=== PATIENT | female | born 1975 | race Caucasian/White ===

== ENCOUNTER 2021-05-19 16:15 | Emergency (ER) | payer BC ==
--- OUTSIDE RECORDS SUMMARY | 2021-05-19 16:19 | XMS REPORT | Continuity of Care Document ---
:1975 Author Organization [facility] t Address [facility] [place] [address] Care Team Providers Name Role Phone Shakeel HAYNES Primary Care Physician Unavailable Vitor Luo Attending Clinician Unavailable Katelin VALENTINE Attending Clinician Talita Hart MD Attending Clinician Shakeel Triana MD Attending Clinician Shakeel TRIANA Attending Clinician Unavailable Doctor Unassigned, Name Attending Clinician Unavailable Alfred VALENTINE Attending Clinician Saurav VALENTINE Attending Clinician Felix ISABEL Attending Clinician Unavailable Geovanny SOMERS Attending Clinician Unavailable Shakeel HAYNES Attending Clinician Unavailable Yumi BOLDEN Attending Clinician Unavailable Radiology Attending Clinician Unavailable Physician, Primary or Family Admitting Clinician Unavailabl e Payers Payer Name Policy Type Policy Effective Date Expiration Date Sour ce Number AETNA [facility] [id number] 2018 00:00:00 BCBSBCBS CHOICE [id number] 2020 [facility] PPO/FEDER[facility] 00:00:00 Hospital EMPL [id number] 2020[facility] [id number] 2020 00:00:00 IVANIA O [id number] 2018 00:00:00 Problems Condition Condition Condition Status Onset Resolution Last Treating Co mments Source Name Details Category Date Date Treatment Clinician Date Abnormal Abnormal Disease Active 2019-06 Metho di liver liver 0-25 st enzymes enzymes 00:00: Hospita 00 l 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i steatosis steatosis 0-25 st 00:00: Hospita 00 l 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 0-25 st 00:00: Hospita 00 l Asthma Problem Resolve 2020-12-08 Demarcus antoinette (disorder) d 21:21:03 l Asthma [place] (disorder) Resolved Problem 12/08/2020 [facility] Disease of Problem Resolve 2020-12-08 Memoria thyroid d 21:21:03 l gland Disease [place] (disorder) of thyroid gland (disorder) Resolved Problem 12/08/2020 Medical Group Rheumatoid Problem Resolve 2020-12-08 Memoria arthritis d 21:21:03 l (disorder) Raji n Rheumatoid arthritis (disorder) Resolved Problem 12/08/2020 Medical Group Hypothyroi Problem Active 2020-12-08 M emoria dism 21:21:03 l (disorder) Raji n Hypothyroi dism (disorder) Active Problem 12/08/2020 Medical Group Simple Problem Active 2020-12-08 Memor ia obesity 21:21:03 l (disorder) Simple Herm danielle obesity (disorder) Active Problem 12/08/2020 Medical Group Thyroid Problem Active 2020-12-08 Demarcus antoinette nodule 21:21:03 l (disorder) Thyroid Her fletcher nodule (disorder) Active Problem 12/08/2020 [facility] Group Allergies, Adverse Reactions, Alerts Allergy Allergy Status Severity Reaction(s) Onset Inactive Treating Comm ents Source Name Type Date Date Clinician pineappl FA Active SV ANAPHYLAXIS [facility] [place] [facility] pineappl FA Active SV [facility] [place] [facility] Pineappl Propensi Active Unknown Metho di e ty to Reaction 1-08 st adverse 00:00: Hospita reaction 00 l s to drug PINEAPPL DRUG Active Anaphylaxis 2018-06 Uni vers E INGREDI 2-13 ity of 00[facility]: [place] [facility] No Known DA Active U 2004-06 [facility] Drug 2- [place] Intolera 00:00: [facility] 00 [facility] No Known DA Active U 2004-06 [facility] Contrast 2-08 [place] Allergie 00:00: d s 00 [facility] No Known DA Active U 2004-06 [facility] Drug [facility]- [place] Allergie 00:00: d s 00 [facility] No Known DA Active U 2004-06 [facility] Other 2-08 [place] Allergie 00:00: d s 00 Medical Center PINEAPPL DA Active U [place] 2004-06 [facility] E - [place] [facility] Other Other Active Moderate Memoria Food Food l Allergy< Allergy< Raji n sup>1</s sup>1</s up> up> Family History Family Member Diagnosis Comments Start Date Stop Date Source Family member Colon cancer [facility] Family member Colon polyps [facility] Social History Social Habit Start Date Stop Date Quantity Comments Source Tobacco use and 2020-10-25 2020-10-25 Never used [facility] 00:00:00 00:00:00 Hospital Alcohol intake 2020-10-25 2020-10-25 Current drinker Metho dist 00:00:00 00:00:00 of [facility] Social History 2019-06-15 2019-06-15 Formerly [facility] 14:45:18 14:45:18 Alcohol Comment 2018-05-30 2018-05-30 Maybe three Methodis t 00:00:00 00:00:00 drinks a month Hospital Sex Assigned At [birth year] F [facility] 00:[facility]00 Hospital Smoking Status Start Date Stop Date Source Never smoker [facility] Medications Ordered Filled Start Stop Current Ordering Indication Dosage Frequency Signature Comments Components Source Medication Medication Date Date Medication? Clinician (SIG) Name Name cranberry 2020- Take by Meth deepika 400 mg 09-[address] capsule 14:50: 00:00 Hospita 01 :00 l loratadine Yes 10mg QD Take 10 mg M ethodi (CLARITIN) 09-[address] 10 mg 14:49: daily. Hospita tablet 59 l montelukast Yes 10mg QD Take 10 mg Methodi (SINGULAIR) 3-[address] 10 mg 14:49: nightly. Hospita tablet 59 l estradioL Yes 1mg QD Take 1 mg Met hodi (ESTRACE) 1 2-[address] MG tablet 00:00: daily. Hospit a 00 l omeprazole Yes [id number] TAKE ONE Methodi (PriLOSEC) - (1) st 20 MG 00:00: CAPSULE(S) Hospit a capsule 00 BY MOUTH l TWICE A DAY. elderberry 2020- No Q.5D Take by Met hodi fruit and 03-[address] flower 19:24: 00:00 (two) Hospita 460-115 mg 38 :00 times a l capsule day. levothyroxi Yes = 1 tab, Me moria ne 150 mcg 02-27 PO, Daily, l (0.15 mg) 14:53: PLEASE Raji n oral tablet [address] HIRSCH, # 90 ea, 0 Refill(s), Pharmacy: [facility], 160.02, cm, 06/15/19 8:38:00 [employer], Height, 83.636, kg, 06/15/19 8:38:00 [employer], Weight levothyroxi Yes 150 Memori a ne 150 mcg 5-29 microgram l (0.15 mg) 12:36: = 1 tab, Herm danielle oral tablet 00 PO, Daily, # 90 tab, 0 Refill(s), Pharmacy: [facility] omeprazole 2020- No [id number] 20mg Q.5D Take 1 Methodi (PriLOSEC) 06-[address] 20 MG 00:00: 00:00 (20 mg Hospita capsule 00 :00 total) by l mouth 2 (two) times a day. levothyroxi 2018-06 Yes 1 tab 6 Mem oria ne 175 mcg 2-26 days a l (0.175 mg) 15:22: week, PO, Curtis hilario oral tablet 00 Daily, # 78 tab, 1 Refill(s), Pharmacy: [facility] levothyroxi 2019 No 1 tab 6 Mem oria ne 175 mcg 2-26 days a l (0.175 mg) 14:40: week, PO, He rmann oral tablet 00 Daily, 0 Refill(s) Advil Sinus 2018-06 Yes PO, Q4H, 0 Memoria Congestion 2-26 Refill(s) l and Pain 14:40: Excedrin 2018-06 Yes PO, Q6H, 0 Mem oria Migraine 2-26 Refill(s) l 14:40: Claritin 2018-06 Yes 10 mg = 1 Demarcus antoinette 2-26 tab, PO, l 14:40: Daily, PRN Itching / rash / allergy symptoms, # 14 tab, 0 Refill(s) Cranberry 2018-06 Yes 0 Memoria 2-26 Refill(s) l 14:40: montelukast 2018-06 Yes 10 mg = 1 M emoria 10 mg oral 2-26 tab, PO, l tablet 14:40: Bedtime, # Gi nn 00 30 tab, 0 Refill(s) Omeprazole 2018-06 Yes PO, Daily, M emoria 2-26 0 l 14:40: Refill(s) Hydroxychlo 2018-06 Yes 200 mg = 1 Memoria roquine 2-26 tab, PO, l Sulfate 200 14:40: Daily, 0 He rmann MG Oral 00 Refill(s) Tablet multivitami 2018-06 Yes Daily, 0 Me moria n 2-26 Refill(s) l 14:40: Estrogens, 2018-06 Yes 0.3 mg = 1 M emoria Conjugated 2-26 tab, PO, l (ASSISTED) 0.3 14:40: Daily, # Herm danielle MG Oral 00 30 tab, 0 Tablet Refill(s) [Premarin] hydroxychlo 2018-06 Yes Method i roquine 0-24 st (PLAQUENIL) 00:00: Hospit a 200 mg 00 l tablet levothyroxi 2017-06- No Metho di ne 1-06 09-11 st (SYNTHROID, 00:00: 00:00 Hospi ta LEVOXYL) 00 :00 l 175 mcg tablet PREMARIN 2017-06- No Methodi 0.3 mg 0-15 03-26 st tablet 00:00: 00:00 Hospita 00 :00 l Vital Signs Vital Name Observation Time Observation Value Comments Source Systolic blood 2020-09-13 14:46:00 128 mm[Hg] [facility] pressure Diastolic blood 2020-09-13 14:46:00 85 mm[Hg] [facility] pressure Heart rate 2020-09-13 14:46:00 81 /min [facility] Body temperature 2020-09-13 14:46:00 36.56 Ofelia [facility] Body height 2020-09-13 14:46:00 162.6 cm [facility] Body weight 2020-09-13 14:46:00 76.204 kg [facility] BMI 2020-09-13 14:46:00 28.84 kg/m2 [facility] Oxygen saturation in 2020-09-13 14:46:00 100 /min [facility] Arterial blood by Pulse oximetry Systolic (mm Hg) 2019-06-15 14:38:00 Demarcus [facility] Roverto Diastolic (mm Hg) 2019-06-15 14:38:00 [facility] Heart Rate 2019-06-15 14:38:00 [facility] Temperature Oral (F) 2019-06-15 14:38:00 98.3 F [facility] Height 2019-06-15 14:38:00 160.02 cm [facility] Weight 2019-06-15 14:38:00 [facility] BMI Calculated 2019-06-15 14:38:00 [facility] [place] Procedures Procedure Date / Time Performing Clinician Source Performed US ABDOMINAL WITH LIVER 2020-12-13 16:57:40 Katelin, [facility] ELASTOGRAPHY CBC WITH PLATELET AND 2020-09-13 16:00:00 Terry Thomason [facility] DIFFERENTIAL COMPREHENSIVE METABOLIC 2020-09-13 16:00:00 Katelin, [facility] PANEL MRI ABDOMEN W WO CONTRAST 2020-03-13 12:35:00 [facility] US ABDOMINAL WITH LIVER 2020-03-06 20:00:00 Katelin [facility] ELASTOGRAPHY FERRITIN LEVEL 2020-03-01 20:05:00 Katelin [facility] spital HEPATIC FUNCTION PANEL 2020-03-01 20:05:00 [facility] PROTHROMBIN TIME WITH INR 2020-03-01 20:05:00 [facility] CERULOPLASMIN LEVEL 2020-03-01 20:05:00 [facility] LIVER-KIDNEY MICROSOME 2020-03-01 20:05:00 [facility] AB, IGG ANTI-SMOOTH MUSCLE 2020-03-01 20:05:00 [facility] ANTIBODY ALPHA-1 ANTITRYPSIN LEVEL 2020-03-01 20:05:00 [facility] IMMUNOGLOBULIN G, A, M 2020-03-01 20:05:00 [facility] Bone density [facility] scan<sup>3</sup> Hysterectomy<sup>6</sup> [facility] l Roverto Arthroscopy of [facility] knee<sup>2</sup> PAP smear [facility] preparation<sup>9</sup> Hand excision<sup>5</sup> Memori al [place] Mammogram<sup>8</sup> [facility] ermann Endoscopy [facility] Lumpectomy of left [facility] breast<sup>7</sup> Cholecystectomy<sup>4</rao Memori [facility] p> Colonoscopy [facility] T and A (tonsillectomy [facility] and adenoidectomy) postoperative education<sup>10</sup> Plan of Care Planned Activity Planned Date Details Comments Source Future Scheduled Test COVID-19 VACCINE (1) [facility] [code = COVID-19 VACCINE (1)] Future Scheduled Test Hepatitis C screening [facility] (procedure) [code = 974150481] Future Scheduled Test Screening for [facility] malignant neoplasm of cervix (procedure) [code = 968853381] Future Scheduled Test INFLUENZA VACCINE [facility] [code = INFLUENZA VACCINE] Encounters Start End Encounter Admission Attending Care Care Encounter Source Date/Time Date/Time Type Type Clinicians Facility Department ID 2021-04-19 Emergency [facility] [id number] Univers 05:48:51 ity [facility] 2021-01-28 Inpatient PIERRE Wooten ROBERTA [id number] [facility] 16:00:00 Brittny [id number] [facility] 2021-01-30 2021-01-30 Outpatient CHAYA Luo, HCAPM [facility] 08:51:00 08:51:00 Brittny [id number] [facility] 2021-01-30 2021-01-30 Outpatient CHAYA Luo, HCAPM HCAPM [facility] 08:51:00 08:51:00 Brittny 26 [facility] 2020-12-13 2020-12-13 [facility] 1.2.840.1 [id number] Methodi 11:03:03 23:59:00 Encounter Terry 23214.1.[address] 3.430.2.7 Hospit a .3.059255 l .8 2020-12-13 2020-12-13 Travel 1.2.840.1 1.2.877.646 [id number] Methodi 00:00:00 00:00:[address] 3.430.2.7 0.2.7.3.698 Ho spita .3.359997 084.8 l .8 2020-12-05 2020-12-06 Between nullFlavo [facility] [id number] Memoria 13:54:11 13:54:11 Visit r Primary 16 l [facility] 2020-11-28 2020-11-28 Travel 1.2.840.1 1.2.847.252 [id number] Methodi 00:00:00 00:00:[address] 3.430.2.7 0.2.7.3.698 Ho spita .3.863111 084.8 l .8 2020-11-25 2020-11-27 Phone nullFlavo [facility] [id number] Memoria 19:19:32 04:59:59 Message r Primary 11 l [facility] 2020-11-20 2020-11-22 Phone nullFlavo [facility] [id number] Memoria 16:21:27 04:59:59 Message r Primary 10 l Care [facility] 2020-11-19 2020-11-21 Phone nullFlavo [facility] [id number] Memoria 14:20:38 04:59:59 Message r Primary 09 l [facility] 2020-09-13 2020-09-13 Office Katelin, 1.2.840.1 [id number] Methodi 09:43:30 10:31:45 Visit Terry 74312.1.[address] 3.430.2.7 Hospit a .3.408416 l .8 2020-09-13 2020-09-13 Travel 1.2.840.1 1.2.163.863 [id number] Methodi 00:00:00 00:00:[address] 3.430.2.7 0.2.7.3.698 Ho spita .3.430635 084.8 l .8 2020-07-17 2020-07-17 Refill Hart, 1.2.840.1 [id number] Methodi 00:00:00 00:00:00 Chelsea Sanon [address]85.1.[address] 3.430.2.7 Hospit a .3.233729 l .8 2020-07-12 2020-07-12 Refill Hart, 1.2.840.1 [id number] Methodi 00:00:00 00:00:00 Chelsea Sanon [address]804.1.[address] 3.430.2.7 Hospit a .3.079730 l .8 2020-06-18 2020-06-18 Outpatient MHIE SUZANIE [id number] Memoria 10:00:00 10:00:00 01 saskia Layne 2020-06-04 2020-06-04 [facility] 1.2.840.114 [id number] 18:30:00 23:59:00 [facility] Shakeel Guevara 350.1.13.10 [place] 4.2.7.2.686 [place] [id number] 2020-06-04 2020-06-04 [facility] [id number] Univers 18:30:00 18:30:00 [id number] [facility] 2020-06-04 2020-06-04 Outpatient EBONY SHERMAN [facility] [id number] Univers 18:30:00 18:30:00 ity [facility] 2020-06-04 2020-06-04 Orders Doctor JOSEFINA 1.2.840.114 [id number] 00:00:00 00:00:00 Only Unassigned, JUAN 350.1.13.10 [employer] [facility] 4.2.7.2.686 [id number] 2020-05-06 2020-05-06 Emergency [facility] 1.2.719.359 [id number] 13:15:00 16:55:00 Royer Guevara 350.1.13.10 [place] 4.2.7.2.686 [place] [id number] 084 2020-03-15 2020-03-15 Office Katelin, 1.2.840.1 [id number] Methodi 10:01:48 11:16:43 Visit Terry 48242.1.[address] 3.430.2.7 Hospit a .3.984102 l .8 2020-03-15 2020-03-15 Travel 1.2.840.1 1.2.562.296 [id number] Methodi 00:00:00 00:00:[address] 3.430.2.7 0.2.7.3.698 [facility] .3.886100 084.8 l .8 2020-03-13 2020-03-13 [facility], 1.2.840.1 [id number] Methodi 06:32:06 23:59:00 Encounter Refugio 67797.1.[address] 3.430.2.7 Hospit a .3.870820 l .8 2020-03-12 2020-03-12 Travel 1.2.840.1 1.2.009.159 [id number] Methodi 00:00:00 00:00:[address] 3.430.2.7 0.2.7.3.698 Ho spita .3.915866 084.8 l .8 2020-03-08 2020-03-08 Travel 1.2.840.1 1.2.543.563 1302 [id number] Methodi 00:00:00 00:00:[address] 3.430.2.7 0.2.7.3.698 Ho spita .3.811788 084.8 l .8 2020-03-08 2020-03-08 [facility] Serban, 1.2.840.1 [id number] Methodi 00:00:00 00:00:00 Only Aixa 41398.1.[address] 3.430.2.7 Hospit a .3.249514 l .8 2020-03-06 2020-03-06 [facility], 1.2.840.1 [id number] 00030 Methodi 14:13:03 23:59:00 Encounter Terry [address]124.1.[address] 3.430.2.7 Hospit a .3.509462 l .8 2020-03-06 2020-03-06 Travel 1.2.840.1 1.2.959.104 [id number] [id number] Methodi 00:00:00 00:00:[address] 3.430.2.7 0.2.7.3.698 Ho spita .3.341292 084.8 l .8 2020-03-04 2020-03-04 Travel 1.2.840.1 1.2.513.018 6732 [id number] Methodi 00:00:00 00:00:[address] 3.430.2.7 0.2.7.3.698 Ho spita .3.442851 084.8 l .8 2020-03-01 2020-03-01 [facility], 1.2.840.1 [id number] Methodi 13:53:06 14:57:23 Visit Terry 11400.1.[address] 3.430.2.7 Hospit a .3.991447 l .8 2020-02-28 2020-03-01 Phone nullFlavo [facility] [id number] Memoria 14:46:02 04:59:59 Message r Primary 05 l Care [facility] Jones 2020-03-01 2020-03-01 Travel 1.2.840.1 1.2.474.839 [id number] Methodi 00:00:00 00:00:[address] 3.430.2.7 0.2.7.3.698 Ho spita .3.093016 084.8 l .8 2020-02-21 2020-02-21 Abstract Geovanny, 1.2.840.1 [id number] Methodi 00:00:00 00:00:[address] 3.430.2.7 Hospit a .3.759334 l .8 2020-02-21 2020-02-21 Travel 1.2.840.1 1.2.828.865 6048 [id number] Methodi 00:00:00 00:00:[address] 3.430.2.7 0.2.7.3.698 Ho spita .3.076252 084.8 l .8 2019-12-19 2019-12-19 Outpatient EL HAYNES, MDA MDA [id number] 14:37:17 15:04:22 CALEB harry 2019-12-15 2019-12-15 Outpatient EL FUREMIGDIO, MDA MDA [id number] 07:27:02 07:27:02 SHERRIE harry 2019-12-15 2019-12-15 Outpatient EL FURROW, MDA MDA [id number] 07:17:44 07:21:59 SHERRIE harry 2019-12-13 2019-12-15 Phone nullFlavo [facility] [id number] Memoria 14:04:58 04:59:59 Message r Primary 03 l Care [facility] Robert 2019-12-08 2019-12-10 Phone nullFlavo [facility] [id number] Memoria 13:12:35 04:59:59 Message r Primary 02 l Care Cecilia Angelo [facility] 2019-12-08 2019-12-10 Phone nullFlavo [facility] [id number] Memoria 13:10:28 04:59:59 Message r Primary 01 l Care Cecilia Angelo [facility] 2019-11-17 2019-11-18 Between nullFlavo MG [id number] Memoria 12:33:41 12:33:41 Visit r Primary 01 l Care Cecilia Angelo [facility] 2019-11-09 2019-11-11 Phone nullFlavo MG [id number] Memoria 21:12:12 04:59:59 Message r Primary 00 l Care Cecilia Angelo [facility] 2019-06-15 2019-06-16 Outpatient nullFlavo [facility] [id number] Memoria 14:45:00 05:59:59 r Primary 00 l Care Cecilia Angelo [facility] 2019-02-16 2019-02-16 Hospital Radiology [facility] 1.2.840.114 [id number] 16:45:00 23:59:00 Encounter Bally 350.1.13.10 [place] 4.2.7.2.686 [place] [id number] Results Test Description Test Time Test Comments Results Result Comments Source SURG 2021-02-11 13:53:00 Test Item Value Reference Range Interpretation Commrivas hercules SURG RUN DATE: (test 02/11/21 H SHANITA Robles [facility] - [facility] PAGE 1 RUN TIME: 2733 code = Kosta n Inquiry RUN USER: INTERFACE SURG) PATIENT: LEONARD DÍAZ LOC: ELVA U #: [id number] AGE/SX: [age]/F ROOM: RE01/30/21[facility] DR: Brittny Luo : 79 BED: DIS: STATUS: DEP [facility] TLOC: SPEC #: [id number] RECD: STATUS: EPHRAIM REQ #: [id number] RODRIGUEZ: 01/31/21-[address]: Brittny Luo MD ENTERED: 01/31/21 SP TYPE: SURG OTHR DR : No Primary or Family PhysicianORDERED: SURG PATH LVL 5 COPIES TO: No Primary or Family Physician Brittny Luo MD [address] [place] [address] HISTOLOGY: TISSUE ID BLK PCS DANA LEV PROCEDURE DISPOSITION ____ ___ ___ ___ SOFT TISSUES, N A 1 PROCEDURES: SURG PAT H LVL 5 (01/31/21) TISSUES: A. SOFT TISSUES, NOS - CUL DE SAC WALL ENDOMETRIOSIS CPT CODES CPT CODE(S): 54383 , , , , , , FINAL DIAGNOSIS "Cul-de-sac wall endometriosis," excision: SEGMENTS OF SOFT TISSUE , NEGATIVE FOR ENDOMETRIOSIS GROSS DESCRIPTION Cul-de-sac wall endometriosis. Received in formalin is an irregular fragment of middleton-brown soft to rubbery tissue, 1.1 x 0.6 x 0.2 cm. The spe cimen is serially sectioned and the cut surface is middleton-brown and solid. The entire specimen is sub mitted as A. /ba/rupali Grossing performed at [facility] Pathology, [address] [place] [address], [address], [place] [address]. Guide Foreign Tour: Jose Carlos Siddiqi M.D. CONTINUED ON NEXT PA RUN DATE: 02/11/21 H [facility] - LAB PAGE 2 RUN TIME: 1353 Specimen Inquiry RUN USER: INTERFACE SPEC #: [facility]:[id number] PATIENT: LEONARD DÍAZ #[id number] (Continued) - MICROSCOPIC DESCRIPTI ON Cul-de-sac wall endometriosis. Sections demonstrate segments of unremarkable soft tissue c onsisting predominantly of fibroadipose tissue. Deeper sections demonstrate similar findings. Signed SIGNATURE ON Ahmet Nguyen 02/11/21 1353 END OF REPORT COMPREHENSIVE METABOLIC [id number] 12:17:00 Test Item Value Reference Range Interpretation Comments SODIUM (test code = NA) 140 mmol/L 134-147 N POTASSIUM (test code = 4.4 mmol/L 3.4-5.0 N K) CHLORIDE (test code = 108 mmol/L 100-108 N CL) CARBON DIOXIDE (test 31 mmol/L 21-32 N code = CO2) ANION GAP (test code = 1.0 GAP calc 4.0-15.0 L GAP) GLUCOSE (test code = 77 MG/DL 70-110 N GLU) BLOOD UREA NITROGEN 7 MG/DL 7-18 N (test code = BUN) GLOMERULAR FILTRATION >=60 max estimate >60 RATE (test code = GFR) estGFR CREATININE (test code = 0.6 MG/DL 0.6-1.0 N CREAT) TOTAL PROTEIN (test code 7.2 G/DL 6.4-8.2 N = PROT) ALBUMIN (test code = 3.8 G/DL 3.4-5.0 N ALB) GLOBULIN (test code = 3.4 GM/dL GLOB) ALBUMIN/GLOBULIN RATIO 1.1 RATIO 1.2-2.2 L (test code = A/G) CALCIUM (test code = CA) 9.2 MG/DL 8.5-10.1 N BILIRUBIN TOTAL (test 0.40 MG/DL 0.2-1.2 N code = BILT) SGOT/AST (test code = 14 Unit/L 15-37 L AST) SGPT/ALT (test code = 20 Unit/L 12-78 N ALT) ALKALINE PHOSPHATASE 53 Unit/L 45-117 N TOTAL (test code = ALKP) COVID 19 INHOUSE [id number] 17:41:00 Test Item Value Reference Range Interpretation Comments COVID 19 INHOUSE AG NEGATIVE Negative Per manu facturer, (test code = negative result s should [id number]) be treated aspr esumptive and, if inconsi stent with clinical signs andsymptoms or necessary for patient man agement, should betested with an alternative mol ecular assay. Negative resultsdo not preclude SA RS-CoV-2 infection and s hould not be usedas the s ole basis for patient man agement decisions. Neg ative results should be considered in t he context of apatient's r ecent exposures, hist ory, presence of cli nicalsigns and symptoms co nsistent with COVID-19. CBC W/AUTO [id number] 17:07:00 Test Item Value Reference Range Interpretation Comments WHITE BLOOD CELL (test code = 6.2 K/mm3 3.5-11.0 N WBC) RED BLOOD CELL (test code = 4.64 M/mm3 4.70-6.10 L RBC) HEMOGLOBIN (test code = HGB) 13.1 G/DL 10.4-14.9 N HEMATOCRIT (test code = HCT) 39.2 % 31.5-44.1 N MEAN CELL VOLUME (test code = 84.5 Fl 84.5-98.6 N MCV) MEAN CELL HGB (test code = MCH) 28.2 pg 27.0-34.2 N MEAN CELL HGB CONCETRATION 33.4 G/DL 31.5-34.0 N (test code = MCHC) RED CELL DISTRIBUTION WIDTH 12.5 SD 11.5-14.5 N (test code = RDW) PLATELET COUNT (test code = 283 K/mm3 150-450 N PLT) MEAN PLATELET VOLUME (test code 8.90 fL 7.0-10.5 N = MPV) NEUTROPHIL % (test code = NT%) 50.9 % 40-76 N IMMATURE GRANULOCYTE % (test 0.2 % 0.0-5.0 N code = IG%) LYMPHOCYTE % (test code = LY%) 40.7 % 20.5-51.1 N MONOCYTE % (test code = MO%) 7.1 % 1.7-9.3 N EOSINOPHIL % (test code = EO%) 0.6 % 0.0-6.0 N BASOPHIL % (test code = BA%) 0.5 % 0.0-2.0 N NUCLEATED RBC % (test code = 0.0 /100WBC% 0.0-1.0 N NRBC%) NEUTROPHIL # (test code = NT#) 3.2 K/mm3 1.8-7.6 N IMMATURE GRANULOCYTE # (test 0.01 x10 3/uL 0.00-0.03 N code = IG#) LYMPHOCYTE # (test code = LY#) 2.5 K/mm3 0.6-3.2 N MONOCYTE # (test code = MO#) 0.4 K/mm3 0.3-1.1 N EOSINOPHIL # (test code = EO#) 0.0 K/mm3 0.0-0.4 N BASOPHIL # (test code = BA#) 0.0 K/mm3 0.0-0.1 N NUCLEATED RBC # (test code = 0.0 K/mm3 0.0-0.1 N NRBC#) MANUAL DIFF REQUIRED (test code NO DIFF/SCN CRITERIA = MDIFF) URINALYSIS [id number] 17:05:00 Test Item Value Reference Range Interpretation Comments UA GLUCOSE DIPSTICK (test NEGATIVE mg/dL NEG code = DGLUU) UA BILIRUBIN DIPSTICK (test NEGATIVE mg/dL NEG code = BILU) UA KETONE DIPSTICK (test NEGATIVE mg/dL NEG code = KETU) UA SPECIFIC GRAVITY (test 1.025 SG 1.005-1.030 code = SGU) UA BLOOD DIPSTICK (test NEGATIVE mg/DL NEG code = JEISON) UA PH DIPSTICK (test code = 5.5 pH UNITS 5.0-7.0 BETTINA) UA PROTEIN DIPSTICK (test NEGATIVE mg/dL NEG code = PROU) UA UROBILINIOGEN DIPSTICK 0.2 mg/dL <2.0 (test code = URO) UA NITRITE DIPSTICK (test NEGATIVE SCREEN NEG code = PEEWEE) UA LEUKOCYTE ESTERASE NEGATIVE Leuk/mcL NEGATIVE DIPSTICK (test code = LEUU) Urine Specimen Type: Clean CatchUS Abdominal with Liver [id number] 20:52:00EXAM: US ABDOMINAL WITH LIVER ELASTOGRAPHY CLINICAL DATA: K74.00 Hepatic fibrosis unspecified, K76.0 Fatty (change of) liver not elsewhere classified, hepatic steatosis COMPARISON: MRI abdomen datedS2019 IMPRESSION: LIVER: The liver demonstrates normal echogenicity without intrahepatic biliary ductal dilatation. Ill-defined echogenic regions seen in the left hepatic lobe, likely reflects focal fatty infiltration. 2D-Shear wave elastography was performed; 10 measurements were obtained from the right hepatic lobe per protocol. The median shear wave velocity was 0.95 m/s, most compatible with METAVIR stage F0, no fibrosis (see reference ranges for GE Logiq E9 with C1-6 Mhz probe below). Please note that velocities/stiffness may ALSO be elevated due to passive hepatic congestion, biliary obstruction/cholestasis, and inflammation (such as acute viral hepatitis flare). Results should be interpreted with caution in these settings. GE Logiq E9 reference ranges:METAVIR SW velocity StiffnessNormal <1.35 m/s <5.48 kPaF1 1.35-1.65 m/s >5.48 kPaF2 1.66-1.76 m/s >8.29 kPaF3 1.77-1.98 m/s >9.40 kPaF4 >1.99 m/s >11.9 kPa Reliability:The IQR was 0.15 m/s, resulting in an IQR/median ratio of 15%. (A value of < 30% indicates a reliable dataset). GALLBLADDER: Status post cholecystectomy. CBD: The common bile duct measures 0.5-0.6 cm, within normal limits. MPV: Doppler evaluation of the portal vein demonstrates normal hepatopetal flow. The main portal vein measures 1.0 cm in diameter, within normal limits. PANCREAS: The visualized portions of the pancreas are within normal limits. SPLEEN: The spleen is homogeneous and not enlarged measuring 9.3 x 4.2 x 5.2 cm in length. KIDNEYS: The right kidney measures 10.2 x 5.7 x 5.1 cm in length and the left kidney measures 9.6 x 5.0 x 5.6 cm in length. There is minimal pelviectasis of the left kidney. AORTA: The visualized upper abdominal aorta demonstrates no evidence of ectasia or aneurysm. IVC: The visualized portions ofthe inferior vena cava are unremarkable. ASCITES: No ascites or abnormal fluid collections are seen.PLEURAL EFFUSION: There are no pleural effusions. SUMMARY: 1.No evidence of fibrosis. 2.Ill-definedechogenic area in the left hepatic lobe likely reflects focal fatty infiltration. [facility]-[id number] Dictated and approved by residential advisor/fellow: Mauricio Arita M.D. I, Cornelius Langford MD, personally reviewed the images and resident's/fellow's findings and agree with the final report.[facility], Radiology Results - 12/13/2020 3:55 PM CDTFormatting of this note might be different fromthe original.EXAM: US ABDOMINAL WITH LIVER ELASTOGRAPHYCLINICAL DATA: K74.00 Hepatic fibrosis unspecified, K76.0 Fatty (change of) liver not elsewhere classified, hepatic steatosisCOMPARISON: MRI abdomen dated March 13, 2020IMPRESSION:LIVER: The liver demonstrates normal echogenicity without in trahepatic biliary ductal dilatation. Ill-defined echogenic regions seen in the left hepatic lobe, likely reflects focal fatty infiltration.2D-Shear wave elastography was performed; 10 measurements were obtained from the right hepatic lobe per protocol. The median shear wave velocity was 0.95 m/s, most compatible with METAVIR stage F0, no fibrosis (see reference ranges for GE Logiq E9 with C1-6 Mhz probe below). Please note that velocities/stiffness may ALSO be elevated due to passive hepatic congestion, biliary obstruction/cholestasis, and inflammation (such as acute viral hepatitis flare). Results should be interpreted with caution in these settings.GE Logiq E9 reference ranges:METAVIR SW velocity StiffnessNormal <1.35 m/s <5.48 kPaF1 1.35-1.65 m/s >5.48 kPaF2 1.66-1.76 m/s >8.29 kPaF3 1.77-1.98 m/s >9.40 kPaF4 >1.99 m/s >11.9 kPaReliability:The IQR was 0.15 m/s, resulting in an IQR/median ratio of 15%. (A value of < 30% indicates a reliable dataset).GALLBLADDER: Status post cholecystectomy.CBD: The common bile duct measures 0.5-0.6 cm, within normal limits. MPV: Doppler evaluation of the portal vein demonstrates normal hepatopetal flow. The main portal vein measures 1.0 cm in diameter, within normal limits.PANCREAS: The visualized portions of the pancreas are within normal limits.SPLEEN: The spleen is homogeneous and not enlarged measuring 9.3 x 4.2 x 5.2 cm in length.KIDNEYS: The right kidney measures 10.2 x 5.7 x 5.1 cm in length and the left kidney measures 9.6 x5.0 x 5.6 cm in length. There is minimal pelviectasis of the left kidney.AORTA: The visualized upper abdominal aorta demonstrates no evidence of ectasia or aneurysm.IVC: The visualized portions of the inferior vena cava are unremarkable.ASCITES: No ascites or abnormal fluid collections are seen.PLEURAL EFFUSION: There are no pleural effusions.SUMMARY:1.No evidence of fibrosis.2.Ill-defined echogenic area in the left hepatic lobe likely reflects focal fatty infiltration.[facility]- [id number] and approved by residential advisor/fellow: Everton Morrell, Cornelius Langford MD, personally reviewedthe images and resident's/fellow's findings and agree with the final report.[facility] [id number] 10:33:00 Test Item Value Reference Range Interpretation Comments Glucose (test code = 88 mg/dL 65-99 2345-7) BUN (test code = 10 mg/dL 7-25 3094-0) Creatinine (test code 0.67 mg/dL 0.50-1.10 = 2160-0) EGFR Non-Afr. See_Comment [Automated [place] (test code = messag e] The 2775) system which generated this result transmit perla reference range : > OR = 60 mL/min/1.73m2. The reference range was not used to interpret this result as normal/abnormal . EGFR See_Comment [Auto mated (test code = 96582-6) messag e] The system which generated this result transmit perla reference range : > OR = 60 mL/min/1.73m2. The reference range was not used to interpret this result as normal/abnormal . BUN/creatinine ratio NOT APPLICABLE See_Comment [Aut omated (test code = 3097-3) message ] The system which generated this result transmit perla reference range : 6 - 22 (calc). Th e reference range was not used to interpret this result as normal/abnormal . Sodium (test code = 142 mmol/L 088-837 6964-2) Potassium (test code 3.8 mmol/L 3.5-5.3 = 2823-3) Chloride (test code = 104 mmol/L 98-110 2075-0) CO2 (test code = 33 mmol/L 20-32 H 2028-02) Calcium (test code = 9.6 mg/dL 8.6-10.2 60015-2) Protein (test code = 6.8 g/dL 6.1-8.1 2885-2) Albumin, S (test code 4.3 g/dL 3.6-5.1 = 1751-7) Globulin, total (test See_Comment [Auto mated code = 77458-7) message] The system which generated this result transmit perla reference range : 1.9 - 3.7 g/dL (calc). The reference range was not used to interpret this result as normal/abnormal . Albumin/globulin See_Comment [Automated ratio (test code = message] The 0) system which generated this result transmit perla reference range : 1.0 - 2.5 (calc ). The reference range was not u sed to interpret th is result as normal/abnormal . Total bilirubin (test 0.4 mg/dL 0.2-1.2 code = 1974-2) Alkaline phosphatase 54 U/L 31-125 (test code = 6768-6) AST (test code = 19 U/L 10- 192-8) ALT (test code = 22 U/L 12-17 174-6) RAC (test code = RAC) Lab Interpretation Abnormal (test code = 07009-7) [facility] with platelet and [id number] 10:33:00 Test Item Value Reference Range Interpretation Comments WBC (test code = See_Comment [Automated message] 0090-2) The system ic h generated this result transmitted ref erence range: 3.8 - 10 .8 Thousand/uL. e reference range was not used to int erpret this result as normal/abnormal . RBC (test code = See_Comment [Automated message] 789-8) The system [facility] h generated this result transmitted ref erence range: 3.80 - 5 .10 Million/uL. The reference range was not used to int erpret this result as normal/abnormal . HGB (test code = 13.0 g/dL 11.7-15.5 718-7) HCT (test code = 39.1 % 35.0-45.0 4544-3) MCV (test code = 83.2 fL 80.0-100.0 787-2) MCH (test code = 27.7 pg 27.0-33.0 785-6) MCHC (test code = 33.2 g/dL 32.0-36.0 786-4) RDW (test code = 13.4 % 11.0-15.0 788-0) Platelet count (test See_Comment [Autom ated message] code = 777-3) The system [facility] ch generated this result transmitted ref erence range: 140 - 40 0 Thousand/uL. Th e reference range was not used to int erpret this result as normal/abnormal . MPV (test code = 9.1 fL 7.5-12.5 776-5) Neutrophils, absolute See_Comment [Auto mated message] (test code = 751-8) The syst em which generated this result transmitted ref erence range: 1,500 - 7,800 cells/uL. The reference range was not used to int erpret this result as normal/abnormal . Lymphocytes, absolute See_Comment [Auto mated message] (test code = 731-0) The syst em which generated this result transmitted ref erence range: 850 - 3, 900 cells/uL. The reference range was not used to int erpret this result as normal/abnormal . Monocytes, absolute See_Comment [Automa perla message] (test code = 742-7) The syst em which generated this result transmitted ref erence range: 200 - 95 0 cells/uL. The reference range was not used to int erpret this result as normal/abnormal . Eosinophils, absolute See_Comment [Auto mated message] (test code = 711-2) The syst em which generated this result transmitted ref erence range: 15 - 500 cells/uL. The reference range was not used to int erpret this result as normal/abnormal . Basophils, absolute See_Comment [Automa perla message] (test code = 704-7) The syst em which generated this result transmitted ref erence range: 0 - 200 cells/uL. The reference range was not used to int erpret this result as normal/abnormal . Neutrophils (test code 47.5 % = 770-8) Lymphocytes (test code 42.0 % = 736-9) Monocytes (test code = 8.4 % 5905-5) Eosinophils (test code 1.4 % = 713-8) Basophils + RC (test 0.7 % code = 706-2) RAC (test code = RAC) [facility] Abdomen W Wo [id number] 13:17:31EXAMINATION: MRI ABDOMEN W WO CONTRAST HISTORY: 44 years old Female. R74.8 Abnormal levels of otherserum enzymes, K76.0 Fatty (change of) liver not elsewhere classified, Liver lesion >1cm noted on recent liver ultrasound, no known malignancy. TECHNIQUE: MRI of the abdomen was performed without and with IV Gadolinium contrast. COMPARISON: Abdominal ultrasound with liver elastography 03/06/2020 FI NDINGS: Liver: Liver measures 15.5 cm in craniocaudal dimension with a smooth contour. Normal parenchymal signal intensity. There is a 2.2 cm focus of signal dropout on opposed phase series in hepatic segment 4B anteriorly (series 3A, image 93) which correlates with findings on recent liver ultrasoundand is consistent with focal fat. No suspicious hepatic lesions. Gallbladder: Cholecystectomy. Bile ducts: Common bile duct measures 6 mm in caliber and tapers normally, likely sequela of cholecystectomy. No intrahepatic biliary ductal dilatation. Vasculature: Portal veins are patent. Replaced left hepatic artery arising from the left gastric artery. Pancreas: Normal parenchymal signal intensity. No focal lesions. Pancreatic duct is normal in caliber. No fluid collection. Spleen: Normal, not enlarged, measures 10 cm in craniocaudal dimension. Kidneys: No hydronephrosis. Other findings: No pleural or pericardial effusion. No suspicious osseous lesions. Small fat-containing umbilical hernia. IMPRESSION: 1. 2.2 cm benign focal fat in hepatic segment 4B corresponding with findings on recent liver ultrasound.2. Otherwise normal MR appearance of the liver without suspicious lesions.3. Status post cholecystectomy. [facility]- [id number] Interface, Radiology Results 03/13/2020 8:20 AM CDT EXAMINATION: MRI ABDOMEN W WO CONTRAST HISTORY:44 years old Female. R74.8 Abnormal levels of other serum enzymes, K76.0 Fatty (change of) liver not elsewhere classified, Liver lesion >1cm noted on recent liver ultrasound, no known malignancy.TE CHNIQUE: MRI of the abdomen was performed without and with IV Gadolinium contrast.COMPARISON: Abdominal ultrasound with liver elastography 03/06/2020FINDINGS:Liver: Liver measures 15.5 cm in craniocaudal dimension with a smooth contour. Normal parenchymal signal intensity. There is a 2.2 cm focus of signal dropout on opposed phase series in hepatic segment 4B anteriorly (series 3A, image 93) which correlates with findings on recent liver ultrasound and is consistent with focal fat. No suspicious hepatic lesions.Gallbladder: Cholecystectomy.Bile ducts: Common bile duct measures 6 mm in caliber and tapers normally, likely sequela of cholecystectomy. No intrahepatic biliary ductal dilatation.Vasculature: Portal veins are patent. Replaced left hepatic artery arising from the left gastric artery.Pancreas: Normal parenchymal signal intensity. No focal lesions. Pancreatic duct is normal in caliber. No fluid collection.Spleen: Normal, not enlarged, measures 10 cm in craniocaudal dimension.Kidneys: No hydronephrosis.Other findings: No pleural or pericardial effusion. No suspicious osseous lesions. Smallfat-containing umbilical hernia.IMPRESSION: 1. 2.2 cm benign focal fat in hepatic segment 4B correspo nding with findings on recent liver ultrasound.2. Otherwise normal MR appearance of the liver without suspicious lesions.3. Status post cholecystectomy.[facility]-[id number] HospitalCelia panel reflex to titer 2020-03-04 22:08:00 Test Item Value Reference Range Interpretation Comments Gliadin IgA (test code = See_Comment [A utomated message] 37323-0) The system KDW generated this result transmitted ref erence range: 0 - 19 u nits. The reference r gordon was not used to interpret this result as normal/abnor mal. Tissue transglutaminase Ab, <2 0-3 IgA (test code = 72417-4) MARSHA (test code = MARSHA) [facility] microsome Ab, [id number] 18:08:00 Test Item Value Reference Range Interpretation Comments Liver-kidney microsome See_Comment [Aut omated message] The Ab, IgG (test code = system which generated 97421-7) this result tra nsmitted reference range : 0.0 - 20.0 Units. The reference range was not u sed to interpret this result as normal/abnormal . MARSHA (test code = MARSHA) [facility] [id number] 01:07:00 Test Item Value Reference Range Interpretation Comments F-actin (smooth See_Comment [Automated message] The muscle) Ab, IgG (test system which generated this code = 34498-2) result trans mitted reference range : 0 - 19 Units. The refe rence range was not used to interpret this result as normal/abnormal . MARSHA (test code = MARSHA) [facility]wayCeruloplasmin [id number] 00:08:00 Test Item Value Reference Range Interpretation Comments Ceruloplasmin (test code = 2064-4) 32.4 mg/dL 19.0-39.0 MARSHA (test code = MARSHA) [facility] RahwayAlpha-1 antitrypsin [id number] 23:08:00 Test Item Value Reference Range Interpretation Comments Alpha-1 antitrypsin (test code = 162 mg/dL 921-728 7842-9) MARSHA (test code = MARSHA) [facility] HospitalImmunoglobulin [facility], A, [id number] 15:10:00 Test Item Value Reference Range Interpretation Comments IgG (test code = 2465-3) 1035 mg/dL 586-1602 IgA (test code = 2458-8) 105 mg/dL 87-352 IgM (test code = 2472-9) 104 mg/dL 26-217 MARSHA (test code = MARSHA) [facility] HospitalFerritin [id number] 10:08:00 Test Item Value Reference Range Interpretation Comments Ferritin level (test code = 2276-4) 218 ng/mL 15-150 H MARSHA (test code = MARSHA) Lab Interpretation (test code = Abnormal 09500-8) [facility] RahwayProthrombin time with [id number] 10:08:00 Test Item Value Reference Range Interpretation Comments INR (test code = 6301-6) 0.8-1.2 Prothrombin time (test See_Comment [Aut omated message] The code = 5902-2) system which generated this result tra nsmitted reference range : 9.1 - 12.0 sec. The r eference range was not u sed to interpret this result as normal/abnormal . MARSHA (test code = MARSHA) [facility] CenterHep[facility] function [id number] 08:07:00 Test Item Value Reference Range Interpretation Comments Protein (test code = 7.2 g/dL 6.0-8.5 2885-2) Albumin, S (test code 4.8 g/dL 3.8-4.8 = 175-7) Total bilirubin (test 0.3 mg/dL 0.0-1.2 code = 1974-) Bilirubin direct (test 0.08 mg/dL 0.00-0.40 code = 1967-) Alkaline phosphatase See_Comment [Autom ated message] (test code = 6768-6) The sys tem which generated this result transmitted ref erence range: 39 - 117 IU/L. The reference r gordon was not used to interpret this result as normal/abnor mal. AST (test code = See_Comment [Automated message] 1919-8) The system KDW generated this result transmitted ref erence range: 0 - 40 I U/L. The reference r gordon was not used to interpret this result as normal/abnor mal. ALT (test code = See_Comment [Automated message] 791-6) The system [employer] h generated this result transmitted ref erence range: 0 - 32 I U/L. The reference r gordon was not used to interpret this result as normal/abnor mal. MARSHA (test code = MARSHA) [facility]
[2021-05-19 16:44] LABS: Urine Blood Negative (Negative); Urine Glucose Negative (Negative); Urine Protein Negative (Negative)
[2021-05-19 16:56] LABS: Absolute Lymphocytes (CBC) 2.5 K/uL (0.7-4.9); Basophils % 0.6 % (0-1.3); Hematocrit 40.2 % (36.0-45.0); Lymphocytes % 37.7 % (15.3-44.8); MPV 6.8 fL (7.6-11.3); RBC Red Blood Cell Count 4.78 M/uL (3.86-4.86)
[2021-05-19 17:11] LABS: ALT/SGPT 29 U/L (12-78); AST/SGOT 24 U/L (15-37); Albumin 4.6 g/dL (3.4-5.0); Alkaline Phosphatase 56 U/L (45-117); BUN Blood Urea Nitrogen 10 mg/dL (7-18); Bicarbonate 29 mmol/L (21-32); Bilirubin Direct < 0.1 mg/dL (0-0.2); Bilirubin Total 0.4 mg/dL (0.2-1.0); Glucose Level 92 mg/dL (74-106); Lipase 123 U/L (73-393); Potassium 3.7 mmol/L (3.5-5.1); Protein, Total 8.1 g/dL (6.4-8.2); Sodium Level 138 mmol/L (136-145)
[2021-05-19] MEDS ORDERED: NA CHLORIDE 0.9% 1,000 ML ONE (18:09)
[2021-05-19] MEDS ORDERED: MORPHINE 4 MG/ML SYR ONE (18:09)
[2021-05-19] MEDS ORDERED: ONDANSETRON 4 MG/2 ML VIAL ONE (18:09)
--- NOTE | 2021-05-19 18:09 | RAD REPORT ---
EXAM DESCRIPTION: CTAbdomen Pelvis W Contrast - 05/19/2021 5:57 pm CLINICAL HISTORY: Abdominal pain. ABD PAIN COMPARISON: No comparisons TECHNIQUE: Biphasic CT imaging of the abdomen and pelvis was performed with 100 ml non-ionic IV cont rast. All CT scans are performed using dose optimization technique as appropriate and may include automated exposure control or mA/KV adjustment according to patient size. FINDINGS: The lung bases are clear.Cholecystectomy clips. The liver, spleen, pancreas, adrenal glands and kidneys are within normal limits. No bowel obstruction, free air, free fluid or abscess. Prominent stool is retained in the colon. The appendix is normal. No evidence of significant lymphadenopathy. No suspicious bony findings. IMPRESSION: No acute intra-abdominal or pelvic finding.
--- NOTE | 2021-05-19 18:50 | EDPHYS ---
Physician Documentation [facility] Name: Radha Mcleod Age: 46 yrs Sex: Female : 1975 Arrival Date: 05/19/2021 Time: 16:19 Bed DIS2 Private MD: ED Physician Syed Coon HPI: 05/19 18:48 This 46 yrs old Female presents to ER via Ambulatory with complaints of Abdominal Pain. kb 18:48 The patient presents with abdominal pain. Onset: The symptoms/episode began/occurred 1 kb week(s) ago. The symptoms do not radiate. Associated signs and symptoms: none. The symptoms are described as constant. Modifying factors: The symptoms are alleviated by nothing, the symptoms are aggravated by nothing. Severity of pain: At its worst the pain was moderate in the emergency department the pain is unchanged. The patient has not experienced similar symptoms in the past. The patient has not recently seen a physician. SOCIAL SERVICES COORDINATOR: 16:24 LMP N/A - Hysterectomy ss Historical: - Allergies: 16:21 No Known Allergies; ss - Home Meds: 16:21 Estradiol Oral [Active]; levothyroxine oral [Active]; Plaquenil Oral [Active]; ss Omeprazole Oral [Active]; gabapentin oral [Active]; - PMHx: 16:21 Endometriosis; ss - PSHx: 16:21 Cholecystectomy; ss 16:23 hysterectomy; ss - Immunization history:: Client reports receiving the 2nd dose of the Covid vaccine. - Social history:: Smoking status: Patient denies any tobacco usage or history of. ROS: 18:48 Constitutional: Negative for fever, chills, and weight loss. kb 18:48 Abdomen/GI: Positive for abdominal pain, Negative for nausea, vomiting, and diarrhea. 18:48 All other systems are negative. Exam: 18:48 Constitutional: This is a well developed, well nourished patient who is awake, alert, kb and in no acute distress. Head/Face: Normocephalic, atraumatic. ENT: Moist Mucous membranes Cardiovascular: Regular rate and rhythm with a normal S1 and S2. No gallops, murmurs, or rubs. No pulse deficits. Respiratory: Respirations even and unlabored. No increased work of breathing, no retractions or nasal flaring. Skin: Warm, dry with normal turgor. Normal color. MS/ Extremity: Pulses equal, no cyanosis. Neurovascular intact. Full, normal range of motion. Neuro: Awake and alert, GCS 15, oriented to person, place, time, and situation. Moves all extremities. Normal gait. Psych: Awake, alert, with orientation to person, place and time. Behavior, mood, and affect are within normal limits. 18:48 Abdomen/GI: Inspection: abdomen appears normal, Bowel sounds: normal, in all quadrants, Palpation: soft, in all quadrants, moderate abdominal tenderness, in the anterior aspect of right lateral abdomen. Vital Signs: 16:24 BP 125 / 85; Pulse 102; Resp 17; Temp 98.1(TE); Pulse Ox 100% on R/A; Weight 71.67 kg; ss Height 5 ft. 3 in. (160.02 cm); Pain 9/10; 16:24 Body Mass Index 27.99 (71.67 kg, 160.02 cm) ss MDM: 16:35 Patient medically screened. kb 18:48 Data reviewed: vital signs, nurses notes. Data interpreted: Pulse oximetry: on room air kb is 100 %. Interpretation: normal. Counseling: I had a detailed discussion with the patient and/or guardian regarding: the historical points, exam findings, and any diagnostic results supporting the discharge/admit diagnosis, lab results, radiology results, the need for outpatient follow up, a family practitioner, to return to the emergency department if symptoms worsen or persist or if there are any questions or concerns that arise at home. 05/19 16:31 Order name: Basic Metabolic Panel; Complete Time: 17:20 kb 05/19 16:31 Order name: CBC with Diff; Complete Time: 17:07 kb 05/19 16:31 Order name: Hepatic Function; Complete Time: 17:20 kb 05/19 16:31 Order name: Lipase; Complete Time: 17:20 kb 05/19 16:31 Order name: CT Abd/Pelvis - IV Contrast Only; Complete Time: 18:14 kb 05/19 16:45 Order name: Urine Dipstick-Ancillary; Complete Time: 16:50 EDMS 05/19 16:31 Order name: IV Saline Lock; Complete Time: 16:38 kb 05/19 16:31 Order name: Labs collected and sent; Complete Time: 16:38 kb Administered Medications: 18:15 Drug: NS 0.9% 1000 ml Route: IV; Rate: 1000 ml; Site: right antecubital; iw 19:15 Follow up: IV Status: Completed infusion iw 18:18 Drug: Zofran (Ondansetron) 4 mg Route: IVP; Site: right antecubital; iw 18:39 Follow up: Response: No adverse reaction; Nausea is decreased ss 18:20 Drug: morphine 4 mg Route: IVP; Site: right antecubital; iw 18:39 Follow up: Response: No adverse reaction; Pain is decreased ss 19:03 Drug: Ketorolac 15 mg Route: IVP; Site: right antecubital; ss 19:03 Follow up: Response: Medication administered at discharge. ss Disposition: 05/20 08:43 Co-signature as Attending Physician, Syed Coon MD I agree with the assessment and laz plan of care. Disposition Summary: 05/19/21 18:49 Discharge Ordered Location: Home kb Condition: Stable kb Diagnosis - Abdominal pain, Generalized kb Followup: kb - With: Emergency Department - When: As needed - Reason: Worsening of condition Followup: kb - With: Private Physician - When: 2 - 3 days - Reason: Recheck today's complaints, Continuance of care, Re-evaluation by your physician Discharge Instructions: - Discharge Summary Sheet kb - Abdominal Pain, Adult, [id number] kb Forms: - Medication Reconciliation Form kb - Thank You Letter kb - Antibiotic Education kb - Prescription Opioid Use kb Prescriptions: - Diclofenac Sodium 75 mg Oral tablet,delayed release (DR/EC) - take 1 tablet by ORAL route 2 times per day As needed; 30 tablet; Refills: 0, kb Product Selection Permitted - Zofran 4 mg Oral Tablet - take 1 tablet by ORAL route every 6 hours As needed; 20 tablet; Refills: 0, kb Product Selection Permitted Signatures: Dispatcher [employer] Marva Arias, JULIOC MUSICIAN INSTRUMENTAL-Syed Kay MD MD cha Williams, Irene, RN RN iw Smirch, Shelby, RN RN ss Corrections: (The following items were deleted from the chart) 05/19 16:23 16:21 PMHx: Endometriosis of vagina; ss ss
--- NOTE | 2021-05-19 18:50 | ER ---
Nurse's Notes [facility] Name: Radha Mcleod Age: 46 yrs Sex: Female : 1975 Arrival Date: 05/19/2021 Time: 16:19 Bed DIS2 Private MD: Diagnosis: Abdominal pain, Generalized Presentation: 05/19 16:20 Chief complaint: Patient states: RLQ pain that radiates towards R flank that began 5 ss days ago. +nausea. Coronavirus screen: Client denies travel out of the [place] in the last 14 days. Ebola Screen: Patient denies exposure to infectious person. Patient denies travel to an Ebola-affected area in the 21 days before illness onset. Initial Sepsis Screen: Does the patient meet any 2 criteria? No. Patient's initial sepsis screen is negative. Does the patient have a suspected source of infection? No. Patient's initial sepsis screen is negative. Risk Assessment: Do you want to hurt yourself or someone else? Patient reports no desire to harm self or others. Onset of symptoms was May 14, 2021. 16:20 Method Of Arrival: Ambulatory ss 16:20 Acuity: RICHARD 3 ss Triage Assessment: 18:40 General: Appears in no apparent distress. iw ASSISTED LIVING ASSISTANT: 16:24 LMP N/A - Hysterectomy ss Historical: - Allergies: 16:21 No Known Allergies; ss - Home Meds: 16:21 Estradiol Oral [Active]; levothyroxine oral [Active]; Plaquenil Oral [Active]; ss Omeprazole Oral [Active]; gabapentin oral [Active]; - PMHx: 16:21 Endometriosis; ss - PSHx: 16:21 Cholecystectomy; ss 16:23 hysterectomy; ss - Immunization history:: Client reports receiving the 2nd dose of the Covid vaccine. - Social history:: Smoking status: Patient denies any tobacco usage or history of. Screenin:40 Abuse screen: Denies threats or abuse. Denies injuries from another. Nutritional ss screening: No deficits noted. Tuberculosis screening: Never had TB. Fall Risk None identified. Assessment: 18:40 Reassessment: Patient appears in no apparent distress at this time. Patient and/or ss family updated on plan of care and expected duration. Pain level reassessed. Patient is alert, oriented x 3, equal unlabored respirations, skin warm/dry/pink. Patient states feeling better. Patient states symptoms have improved. Neuro: Level of Consciousness is awake, alert. Respiratory: Respiratory effort is even, unlabored, Respiratory pattern is regular, symmetrical. Vital Signs: 16:24 BP 125 / 85; Pulse 102; Resp 17; Temp 98.1(TE); Pulse Ox 100% on R/A; Weight 71.67 kg; ss Height 5 ft. 3 in. (160.02 cm); Pain 9/10; 16:24 Body Mass Index 27.99 (71.67 kg, 160.02 cm) ss ED Course: 16:19 Patient arrived in ED. ss 16:21 Triage completed. ss 16:21 Arm band placed on right wrist. ss 16:30 Inserted saline lock: 22 gauge in right antecubital area, using aseptic technique. ss Blood collected. 16:31 Marva Gonzalez FNP-C is PHCP. kb 16:31 Syed Coon MD is Attending Physician. kb 17:57 CT Abd/Pelvis - IV Contrast Only In Process Unspecified. EDMS 18:08 Sola Berg, RN is Primary Nurse. iw 18:40 Patient has correct armband on for positive identification. ss 18:40 Patient maintains SpO2 saturation greater than 95% on room air. ss 19:12 No provider procedures requiring assistance completed. IV discontinued. ss Administered Medications: 18:15 Drug: NS 0.9% 1000 ml Route: IV; Rate: 1000 ml; Site: right antecubital; iw 19:15 Follow up: IV Status: Completed infusion iw 18:18 Drug: Zofran (Ondansetron) 4 mg Route: IVP; Site: right antecubital; iw 18:39 Follow up: Response: No adverse reaction; Nausea is decreased ss 18:20 Drug: morphine 4 mg Route: IVP; Site: right antecubital; iw 18:39 Follow up: Response: No adverse reaction; Pain is decreased ss 19:03 Drug: Ketorolac 15 mg Route: IVP; Site: right antecubital; ss 19:03 Follow up: Response: Medication administered at discharge. ss Outcome: 18:49 Discharge ordered by . kb 19:12 Discharged to home ambulatory. ss 19:12 Condition: good 19:12 Discharge instructions given to patient, family, Instructed on discharge instructions, follow up and referral plans. medication usage, Demonstrated understanding of instructions, follow-up care, medications, Prescriptions given X 2. 19:19 Patient left the ED. ss Signatures: Dispatcher [employer] Marva Arias, MONTRELL SILVER-Sola Rahman, RN RN iw Shannon Marcos RN RN ss Corrections: (The following items were deleted from the chart) 16:23 16:21 PMHx: Endometriosis of vagina; ss ss
[2021-05-19] MEDS ORDERED: KETOROLAC 30 MG/ML INJ ONE (18:57)
[2021-05-19 19:56] VITALS: BP 125/85; TEMP 98.1; O2SAT 100
== END 2021-05-19 19:19 | disposition home or self-care (01) ==
LOC: ER 16:15
DX: R10.84 Generalized abdominal pain (principal)
CPT/HCPCS: 96361; 85025; 80048; 36415; 80076; 81003; 83690; 74177; 96375; 96374; 99284; Q9967; J7030; J2405

== ENCOUNTER 2022-02-14 09:36 | Emergency (ER) | payer BC ==
--- OUTSIDE RECORDS SUMMARY | 2022-02-14 09:41 | XMS REPORT | Continuity of Care Document ---
:1975 Author Organization [facility] t Address [address] [place] [address] Care Team Providers Name Role Phone CALEB HAYNES Primary Care Physician Unavailable Brittny Luo Attending Clinician Unavailable Stevan Villegas MD Attending Clinician Terry Thomason MD Attending Clinician Chelsea Hart MD Attending Clinician Ebony Triana MD Attending Clinician EBONY TRIANA Attending Clinician Unavailable Doctor Unassigned, [place] Attending Clinician Unavailable Royer Simon MD Attending Clinician Refugio Mg MD Attending Clinician Aixa Washington LVN Attending Clinician Unavailable Christine Small MA Attending Clinician Unavailable CALEB HAYNES Attending Clinician Unavailable SHERRIE BOLDEN Attending Clinician Unavailable Adriel Hirsch II Attending Clinician Radiology Attending Clinician Unavailable Physician, No Primary or Family Admitting Clinician Unavaila ble Payers Payer Name Policy Type Policy Number Effective Date Expiration Date Reynaldo REDD [facility] [id number] 2018 00:00:00 [facility] [id number] 2020 00:00:00 [employer] HMO [id number] 2018 00:00:00 Problems Condition Condition Condition Status Onset Resolution Last Treating Co mments Source Name Details Category Date Date Treatment Clinician Date Abnormal Abnormal Disease Active 2019-06 Metho di liver liver 0-25 st enzymes enzymes 00:00: Hospita 00 l Fatty Fatty Disease Active 2019-06 [facility] liver liver 0-25 st 00:00: Hospita 00 l 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 0-25 st 00:00: Hospita 00 l Asthma Asthma Problem Resolve 2020-12-08 Mem oria (disorder) (disorder) d 21:21:03 l Resolved [place] Problem 12/08/2020 [facility] Disease of Disease Problem Resolve 2020-12-08 Memoria thyroid of thyroid d 21:21:03 l gland gland [place] (disorder) (disorder) Resolved Problem 12/08/2020 Medical Group Rheumatoid Rheumatoi Problem Resolve 2020-12-08 Memoria arthritis d d 21:21:03 l (disorder) arthritis Her fletcher (disorder) Resolved Problem 12/08/2020 Medical Group Hypothyroi Hypothyro Problem Active 2020-12-08 Memoria dism idism 21:21:03 l (disorder) (disorder) He rmann Active Problem 12/08/2020 Medical Group Simple Simple Problem Active 2020-12-08 Demarcus antoinette obesity obesity 21:21:03 l (disorder) (disorder) He rmann Active Problem 12/08/2020 Medical Group Thyroid Thyroid Problem Active 2020-12-08 M emoria nodule nodule 21:21:03 l (disorder) (disorder) He rmann Active Problem 12/08/2020 [facility] Group Allergies, Adverse Reactions, Alerts Allergy Allergy Status Severity Reaction(s) Onset Inactive Treating Comm ents Source Name Type Date Date Clinician pineappl FA Active SV ANAPHYLAXIS [facility] 8[facility]10 [place] 00:[facility]: d 00 [facility] pineappl FA Active SV [facility] [place] [facility]: d [facility] Pineappl Propensi Active Unknown Metho di e ty to Reaction 06-28 st adverse 00:00: Hospita reaction 00 l s to drug PINEAPPL DRUG Active Anaphylaxis 2018-06 Uni vers E INGREDI 213 ity of 00[facility]: [place] [facility] No Known DA Active U 2004-06 [facility] Drug 2- [place] Intolera 00:00: d [facility] 00 [facility] No Known DA Active U 2004-06 [facility] Contrast 2- [place] Allergie 00:00: d s 00 [facility] No Known DA Active U 2004-06 [facility] Drug - [place] Allergie 00:00: d s 00 [facility] No Known DA Active U 2004-06 [facility] Other - [place] Allergie 00:00: d s 00 [facility] Center PINEAPPL DA Active U SWEELING 2004-06 [facility] E 208 [place] 00:00: d 00 [facility] Other Other Active Moderate Memoria Food Food l Allergy< Allergy< Raji n sup>1</s sup>1</s up> up> Family History Family Member Diagnosis Comments Start Date Stop Date Source Family member Colon cancer [facility] Family member Colon polyps [facility] Social History Social Habit Start Date Stop Date Quantity Comments Source Tobacco use and 2020-10-25 2020-10-25 Never used [facility] exposure 00:00:00 00:00:00 Hospital Alcohol intake 2020-10-25 2020-10-25 Current drinker Metho dist 00:00:00 00:00:00 of alcohol Hospital (finding) Social History 2019-06-15 2019-06-15 [facility] 14:45:18 14:45:18 Alcohol Comment 2018-05-30 2018-05-30 Maybe three Method[facility] t 00:00:00 00:00:00 drinks a month Hospital Sex Assigned At [birth year] F [facility] 00:00:00 00:00:00 Hospital Smoking Status Start Date Stop Date Source Never smoker [facility] Medications Ordered Filled Start Stop Current Ordering Indication Dosage Frequency Signature Comments Components Source Medication Medication Date Date Medication? Clinician (SIG) Name Name cranberry 2020- Take by Meth deepika 400 mg 3-26 03-[address] capsule 14:50: 00:00 Hospita 01 :00 l loratadine 2020-0 Yes 10mg QD Take 10 mg M ethodi (CLARITIN) 3-[address] 10 mg 14:49: daily. Hospita tablet 59 l montelukast 2020-0 Yes 10mg QD Take 10 mg Methodi (SINGULAIR) 3-[address] 10 mg 14:49: nightly. Hospita tablet 59 l loratadine 2020-0 Yes 10mg QD Take 10 mg M ethodi (CLARITIN) 3-[address] 10 mg 09:49: daily. Hospita tablet 59 l montelukast 2020-0 Yes 10mg QD Take 10 mg Methodi (SINGULAIR) 3-[address] 10 mg 09:49: nightly. Hospita tablet 59 l estradioL 2020-0 Yes 1mg QD Take 1 mg Met hodi (ESTRACE) 1 2-[address] MG tablet 00:00: daily. Hospit a 00 l estradioL 2020-0 Yes 1mg QD Take 1 mg Met hodi (ESTRACE) 1 2-[address] MG tablet 00:00: daily. Hospit a 00 l omeprazole 2020-0 Yes [id number] TAKE ONE Methodi (PriLOSEC) 1-27 (1) st 20 MG 00:00: CAPSULE(S) Hospit a capsule 00 BY MOUTH l TWICE A DAY. omeprazole 2020-0 Yes [id number] TAKE ONE Methodi (PriLOSEC) 1-27 (1) st 20 MG 00:00: CAPSULE(S) Hospit a capsule 00 BY MOUTH l TWICE A DAY. elderberry 2019-0 2020- No Q.5D Take by Met hodi fruit and 03-[address] flower 19:24: 00:00 (two) Hospita 460-115 mg 38 :00 times a l capsule day. levothyroxi 2019-0 Yes = 1 tab, Me moria ne 150 mcg 02-27 PO, Daily, l (0.15 mg) 14:53: PLEASE Rjai harry oral tablet [address] HIRSCH, # 90 ea, 0 Refill(s), Pharmacy: [facility] [place], 160.02, cm, 06/15/19 8:38:00 COFFEE ATTENDANT, Height, 83.636, kg, 06/15/19 8:38:00 COFFEE ATTENDANT, Weight levothyroxi Yes = 1 tab, Me moria ne 150 mcg 9-09 PO, Daily, l (0.15 mg) 14:53: PLEASE Raji n oral tablet [address] HIRSCH, # 90 ea, 0 Refill(s), Pharmacy: [facility], 160.02, cm, 06/15/19 8:38:00 COFFEE ATTENDANT, Height, 83.636, kg, 06/15/19 8:38:00 COFFEE ATTENDANT, Weight levothyroxi Yes 150 Memori a ne 150 mcg 5-29 microgram l (0.15 mg) 12:36: = 1 tab, Herm danielle oral tablet 00 PO, Daily, # 90 tab, 0 Refill(s), Pharmacy: [facility] levothyroxi Yes 150 Memori a ne 150 mcg 5-29 microgram l (0.15 mg) 12:36: = 1 tab, Herm danielle oral tablet 00 PO, Daily, # 90 tab, 0 Refill(s), Pharmacy: [facility] omeprazole 2020- No [id number] 20mg Q.5D Take 1 Methodi (PriLOSEC) 06-28 01-[address] 20 MG 00:00: 00:00 (20 mg Hospita capsule 00 :00 total) by l mouth 2 (two) times a day. levothyroxi 2018-06 Yes 1 tab 6 Mem oria ne 175 mcg 2-26 days a l (0.175 mg) 15:22: week, PO, He rmann oral tablet 00 Daily, # 78 tab, 1 Refill(s), Pharmacy: [facility] levothyroxi 2018-06 Yes 1 tab 6 Mem oria ne 175 mcg 2-26 days a l (0.175 mg) 15:22: week, PO, He rmann oral tablet 00 Daily, # 78 tab, 1 Refill(s), Pharmacy: [facility] levothyroxi 2018-06 No 1 tab 6 Mem oria ne [...] M emoria Conjugated 2-26 tab, PO, l (RESIDENTIAL) 0.3 14:40: Daily, # Herm danielle MG Oral 00 30 tab, 0 Tablet Refill(s) [Premarin] levothyroxi 2018-06 No 1 tab 6 Mem oria ne [...] M emoria Conjugated 2-26 tab, PO, l (RESIDENTIAL) 0.3 14:40: Daily, # Herm danielle MG Oral 00 30 tab, 0 Tablet Refill(s) [Premarin] hydroxychlo 2018-06 Yes Method i roquine 0-24 st (PLAQUENIL) 00:00: Hospit a 200 mg 00 l tablet hydroxychlo 2018-06 Yes Method i roquine 0-24 st (PLAQUENIL) 00:00: Hospit a 200 mg 00 l tablet levothyroxi 2017-06 2020- No Metho di ne 06-2611 st (SYNTHROID, 00:00: 00:00 Hospi ta LEVOXYL) 00 :00 l 175 mcg tablet PREMARIN 2017-06- No Methodi 0.3 mg 0-15 -26 st tablet 00:00: 00:00 Hospita 00 :00 l Vital Signs Vital Name Observation Time Observation Value Comments Source Systolic blood 2020-09-13 14:46:00 128 mm[Hg] Method ist Hospital pressure Diastolic blood 2020-09-13 14:46:00 85 mm[Hg] [facility] dist Hospital pressure Heart rate 2020-09-13 14:46:00 81 /min Alejandrois t [facility] Body temperature 2020-09-13 14:46:00 36.56 Ofelia Meth [facility] Body height 2020-09-13 14:46:00 162.6 cm [facility] Body weight 2020-09-13 14:46:00 76.204 kg [facility] BMI 2020-09-13 14:46:00 28.84 kg/m2 [facility] Oxygen saturation in 2020-09-13 14:46:00 100 /min [facility] Arterial blood by Pulse oximetry Systolic (mm Hg) 2019-06-15 14:38:00 Demarcus ria Roverto Diastolic (mm Hg) 2019-06-15 14:38:00 [facility] Heart Rate 2019-06-15 14:38:00 [facility] Temperature Oral (F) 2019-06-15 14:38:00 98.3 F [facility] Height 2019-06-15 14:38:00 160.02 cm [facility] Weight 2019-06-15 14:38:00 [facility] BMI Calculated 2019-06-15 14:38:00 [facility] Procedures Procedure Date / Time Performing Clinician Source Performed US ABDOMINAL WITH LIVER 2020-12-13 16:57:40 [facility] ELASTOGRAPHY CBC WITH PLATELET AND 2020-09-13 16:00:00 [facility] DIFFERENTIAL COMPREHENSIVE METABOLIC 2020-09-13 16:00:00 [facility] PANEL MRI ABDOMEN W WO CONTRAST 2020-03-13 12:35:00 [facility] US ABDOMINAL WITH LIVER 2020-03-06 20:00:00 [facility] ELASTOGRAPHY FERRITIN LEVEL 2020-03-01 20:05:00 [facility] PANEL 2020-03-01 20:05:[address] [facility] PROTHROMBIN TIME WITH INR 2020-03-01 20:05[facility] CERUL[facility]MIN [facility]EVEL 2020-03-01 20:05:00 [facility] LIVER-KIDNEY MICROSOME 2020-03-01 [facility]GG ANTI-SMOOTH MUSCLE 2020-03-01 20:05:00 [facility] ANTIBODY ALPHA-1 ANTITRYPSIN LEVEL 2020-03-01 20:05:00 [facility] IMMUNOGLOBULIN G, A, M 2020-03-01 20:05:00 [facility] Hysterectomy<sup>6</sup> Memoria l Roverto Arthroscopy of [facility] knee<sup>2</sup> PAP smear [facility] preparation<sup>9</sup> Hand excision<sup>5</sup> Memori al [place] Mammogram<sup>8</sup> [facility] Roverto Lumpectomy of left [facility] danielle breast<sup>7</sup> Cholecystectomy<sup>4</rao Memori al Roverto p> [facility] T and A (tonsillectomy [facility] and adenoidectomy) postoperative education<sup>10</sup> Bone density [facility] scan<sup>3</sup> Plan of Care Planned Activity Planned Date Details Comments Source Future Scheduled 2022-02-14 HEPATITIS B [facility] Test 03:07:07 VACCINES (1 of 3 - 3-dose series) [code = HEPATITIS B VACCINES (1 of 3 - 3-dose series)] Future Scheduled 2022-02-14 Hepatitis C [facility] Test 03:07:07 screening (procedure) [code = 038075367] Future Scheduled 2022-02-14 [facility] 03:07[facility]07 malignant neoplasm of cervix (procedure) [code = 592268537] Future Scheduled 2022-02-14 BREAST CANCER [facility] Test 03:07:07 SCREENING [code = BREAST CANCER SCREENING] Future Scheduled 2022-02-14 COVID-19 VACCINE (2 [facility] Test 03:07:07 - Booster for [place] series) [code = COVID-19 VACCINE (2 - Booster for [place] series)] Future Scheduled 2022-02-14 INFLUENZA VACCINE [facility] Hospital Test 03:07:07 [code = INFLUENZA VACCINE] Future Scheduled COVID-19 VACCINE [facility] Hospital Test (1) [code = COVID-19 VACCINE (1)] Future Scheduled Hepatitis C [facility] Test screening (procedure) [code = 422050078] Future Scheduled Screening for [facility] Test malignant neoplasm of cervix (procedure) [code = 335160665] Future Scheduled INFLUENZA VACCINE [facility] Hospital Test [code = INFLUENZA VACCINE] Encounters Start End Encounter Admission Attending Care Care Encounter Source Date/Time Date/Time Type Type Clinicians Facility Department ID 2021-04-19 Emergency [facility] [id number] [facility] 05:48:51 ity [facility] 2021-01-28 Inpatient ZOE WootenPM ROBERTA [id number] [facility] 16:00:00 Brittny 11336 [facility] 2021-12-30 2021-12-30 Outpatient MHIE IE [id number] Memoria 07:00:00 07:00:00 02 l [place] 2021-10-14 2021-10-14 Telemedici Nelly, 1.2.840.1 [id number] Methodi 11:30:00 11:45:49 ne Stevan 41645.1.[address] 3.430.2.7 Hospit a .3.867876 l .8 2021-10-14 2021-10-14 Outpatient [facility] [address] [id number] [place] 00:00:00 00:00:[address] STEVAN [address] 2021-07-18 2021-07-18 Travel 1.2.840.1 1.2.820.301 [id number] Methodi 00:00:00 00:00:[address] 3.430.2.7 0.2.7.3.698 spita .3.249478 084.8 l .8 2021-01-30 2021-01-30 Outpatient ZOE WootenPM [facility] 08:51:00 08:51:00 Brittny 72735 [facility] 2021-01-30 2021-01-30 Outpatient ZOE WootenPM HCAPM [facility] 08:51:00 08:51:00 Brittny 26 [facility] 2020-12-13 2020-12-13 [facility], 1.2.840.1 [id number] Methodi 11:03:03 23:59:00 Encounter Terry 83289.1.[address] 3.430.2.7 Hospit a .3.830129 l .8 2020-12-13 2020-12-13 Travel 1.2.840.1 1.2.060.940 [id number] Methodi 00:00:00 00:00:[address] 3.430.2.7 0.2.7.3.698 Ho spita .3.824690 084.8 l .8 2020-12-05 2020-12-06 Between nullFlavo [facility] [id number] Memoria 13:54:11 13:54:11 Visit r Primary 16 [facility] 2020-12-05 2020-12-06 Between nullFlavo [facility] [id number] Memoria 13:54:11 13:54:11 Visit r Primary 16 [facility] 2020-12-05 2020-12-06 Outpatient MHMG [facility] [id number] 08:54:11 08:54:11 16 2020-11-28 2020-11-28 Travel 1.2.840.1 1.2.535.678 [id number] Methodi 00:00:00 00:00:[address] 3.430.2.7 0.2.7.3.698 Ho spita .3.917130 084.8 l .8 2020-11-25 2020-11-27 Phone nullFlavo [facility] [id number] Memoria 19:19:32 04:59:59 Message r Primary 11 [facility] 2020-11-25 2020-11-27 Phone nullFlavo [facility] [id number] Memoria 19:19:32 04:59:59 Message r Primary 11 [facility] 2020-11-25 2020-11-26 Outpatient MHMG [facility] [id number] 14:19:32 23:59:59 11 2020-11-20 2020-11-22 Phone nullFlavo [facility] [id number] Memoria 16:21:27 04:59:59 Message r Primary 10 l Care [facility] 2020-11-20 2020-11-22 Phone nullFlavo MHMG [id number] Memoria 16:21:27 04:59:59 Message r Primary 10 l Care [facility] 2020-11-20 2020-11-21 Outpatient MHMG MG [id number] 11:21:27 23:59:59 10 2020-11-19 2020-11-21 Phone nullFlavo [facility] [id number] Memoria 14:20:38 04:59:59 Message r Primary 09 l Care [facility] 2020-11-19 2020-11-21 Phone nullFlavo [facility]MG [id number] Memoria 14:20:38 04:59:59 Message r Primary 09 l Care [facility] 2020-11-19 2020-11-20 Outpatient MHMG MG [id number] 09:20:38 23:59:59 09 2020-09-13 2020-09-13 Office Kateiln, 1.2.840.1 [id number] Methodi 09:43:30 10:31:45 Visit Terry 48808.1.[address] 3.430.2.7 Hospit a .3.412143 l .8 2020-09-13 2020-09-13 Travel 1.2.840.1 1.2.357.485 3091 [id number] Methodi 00:00:00 00:00:[address] 3.430.2.7 0.2.7.3.698 Ho spita .3.079216 084.8 l .8 2020-07-17 2020-07-17 Refill Tanner, 1.2.840.1 [id number] Methodi 00:00:00 00:00:00 Chelsea Sanon 50195.1.[address] 3.430.2.7 Hospit a .3.104293 l .8 2020-07-12 2020-07-12 Refill Hart, 1.2.840.1 [id number] Methodi 00:00:00 00:00:00 Chelsea Sanon 65864.1.[address] 3.430.2.7 Hospit a .3.807052 l .8 2020-06-18 2020-06-18 Outpatient IE IE [id number] Memoria 10:00:00 10:00:00 01 l [place] 2020-06-18 2020-06-18 Outpatient MHIE IE [id number] Memoria 10:00:00 10:00:00 01 [facility] 2020-06-04 2020-06-04 [facility] 1.2.840.114 [id number] 18:30:00 23:59:00 Daquan Guevara 350.1.13.10 [place] 4.2.7.2.686 [place] [id number] 806 2020-06-04 2020-06-04 Outpatient [facility] [id number] Univers 18:30:00 18:30:00 [id number] [facility] 2020-06-04 2020-06-04 Outpatient [facility] [id number] Univers 18:30:00 18:30:00 [facility] 2020-06-04 2020-06-04 Orders Doctor JOSEFINA 1.2.840.114 [id number] 00:00:00 00:00:00 Only Unassigned, JUAN 350.1.13.10 [place] [facility] 4.2.7.2.686 [id number] 2020-05-06 2020-05-06 Emergency [facility] 1.2.274.410 [id number] 13:15:00 16:55:00 Royer Guevara 350.1.13.10 [place] 4.2.7.2.686 [place] [id number] 2020-03-15 2020-03-15 Office Katelin 1.2.840.1 [id number] Methodi 10:01:48 11:16:43 Visit Terry 92339.1.[address] 3.430.2.7 Hospit a .3.081794 l .8 2020-03-15 2020-03-15 Travel 1.2.840.1 1.2.408.198 0831 [id number] Methodi 00:00:00 00:00:[address] 3.430.2.7 0.2.7.3.698 Ho spita .3.139958 084.8 l .8 2020-03-13 2020-03-13 [facility], 1.2.840.1 [id number] Methodi 06:32:06 23:59:00 Encounter Refugio 26227.1.[address] 3.430.2.7 Hospit a .3.873830 l .8 2020-03-12 2020-03-12 Travel 1.2.840.1 1.2.202.258 [id number] Methodi 00:00:00 00:00:[address] 3.430.2.7 0.2.7.3.698 Ho spita .3.698604 084.8 l .8 2020-03-08 2020-03-08 Travel 1.2.840.1 1.2.328.645 6021 [id number] Methodi 00:00:00 00:00:[address] 3.430.2.7 0.2.7.3.698 Ho spita .3.309483 084.8 l .8 2020-03-08 2020-03-08 [facility] 1.2.840.1 [id number] Methodi 00:00:00 00:00:00 Only Aixa 09579.1.[address] 3.430.2.7 Hospit a .3.488482 l .8 2020-03-06 2020-03-06 [facility], 1.2.840.1 [id number] Methodi 14:13:03 23:59:00 Encounter Terry 63040.1.[address] 3.430.2.7 Hospit a .3.665373 l .8 2020-03-06 2020-03-06 Travel 1.2.840.1 1.2.667.522 [id number] [id number] Methodi 00:00:00 00:00:[address] 3.430.2.7 0.2.7.3.698 Ho spita .3.672742 084.8 l .8 2020-03-04 2020-03-04 Travel 1.2.840.1 1.2.950.675 [id number] [id number] Methodi 00:00:00 00:00:[address] 3.430.2.7 0.2.7.3.698 Ho spita .3.328207 084.8 l .8 2020-03-01 2020-03-01 Office Katelin, 1.2.840.1 [id number] Methodi 13:53:06 14:57:23 Visit Terry 57766.1.[address] 3.430.2.7 Hospit a .3.147513 l .8 2020-02-28 2020-03-01 Phone nullFlavo [facility] [id number] Memoria 14:46:02 04:59:59 Message r Primary [address] [facility] 2020-02-28 2020-03-01 Phone nullFlavo MHMG [id number] Memoria 14:46:02 04:59:59 Message r Primary [address] [facility] 2020-03-01 2020-03-01 Travel 1.2.840.1 1.2.863.609 [id number] Methodi 00:00:00 00:00:[address] 3.430.2.7 0.2.7.3.698 Ho spita .3.272754 084.8 l .8 2020-02-28 2020-02-29 Outpatient MHMG MH[facility] [id number] 09:46:02 23:59:59 05 2020-02-21 2020-02-21 Kanu Small, 1.2.840.1 [id number] Methodi 00:00:00 00:00:[address] 3.430.2.7 Hospit a .3.712981 l .8 2020-02-21 2020-02-21 Travel 1.2.840.1 1.2.194.747 [id number] [id number] Methodi 00:00:00 00:00:[address] 3.430.2.7 0.2.7.3.698 Ho spita .3.850182 084.8 l .8 2019-12-19 2019-12-19 Outpatient CHAYA HAYNES MDA MDA [id number] 14:37:17 15:04:22 CALEB harry 2019-12-15 2019-12-15 Outpatient CHAYA BOLDEN MDA MDA [id number] 07:27:02 07:27:02 SHERRIE harry 2019-12-15 2019-12-15 Outpatient CHAYA BOLDEN MDA MDA [id number] 07:17:44 07:21:59 SHERRIE harry 2019-12-13 2019-12-15 Phone nullFlavo [facility] [id number] Memoria 14:04:58 04:59:59 Message r Primary [address] [facility] 2019-12-13 2019-12-15 Phone nullFlavo [facility] [id number] Memoria 14:04:58 04:59:59 Message r Primary [address] [facility] 2019-12-13 2019-12-14 Outpatient MHMG MHMG [id number] 09:04:58 23:59:59 03 2019-12-08 2019-12-10 Phone nullFlavo [facility] [id number] Memoria 13:12:35 04:59:59 Message r Primary 02 l Care [facility] 2019-12-08 2019-12-10 Phone nullFlavo [facility]MG [id number] Memoria 13:12:35 04:59:59 Message r Primary [address] [facility] 2019-12-08 2019-12-10 Phone nullFlavo [facility]MG [id number] Memoria 13:10:28 04:59:59 Message r Primary [address] [facility] 2019-12-08 2019-12-10 Phone nullFlavo [facility]MG [id number] Memoria 13:10:28 04:59:59 Message r Primary 01 l Care [facility] [place] 2019-12-08 2019-12-09 Outpatient MHMG MH[facility] [id number] 08:12:35 23:59:59 2019-12-08 2019-12-09 Outpatient MHMG MH[facility] [id number] 08:10:28 23:59:59 2019-11-17 2019-11-18 Between nullFlavo [facility] [id number] Memoria 12:33:41 12:33:41 Visit r [facility] 2019-11-18 Between nullFlavo [facility] [id number] Memoria 12:33:41 12:33:41 Visit r Primary 01 l Care [facility] 2019-11-17 2019-11-18 Outpatient MHMG MHMG [id number] 07:33:41 07:33:41 2019-11-09 2019-11-11 Phone nullFlavo [facility]MG [id number] Memoria 21:12:12 04:59:59 Message r Primary 00 [facility] 2019-11-09 2019-11-11 Phone nullFlavo [facility] [id number] Memoria 21:12:12 04:59:59 Message r Primary 00 l Care [facility] 2019-11-09 2019-11-10 Outpatient MHMG MH[facility] [id number] 16:12:12 23:59:59 2019-06-15 2019-06-16 Outpatient nullFlavo [facility]MG [id number] Memoria 14:45:00 05:59:59 r Primary 00 l Care [facility] [place] 2019-06-15 2019-06-16 Outpatient nullFlavo [facility] [id number] Memoria 14:45:00 05:59:59 r Primary 00 l Care [facility] [place] 2019-06-15 2019-06-15 Outpatient Nicklas, MHMG MHMG [id number] 08:45:00 23:59:59 Edjudy Escobar 2019-06-15 2019-06-15 Outpatient MHIE MHIE [id number] Memoria 08:45:00 08:45:00 00 saskia Layne 2019-02-16 2019-02-16 [facility] Radiology [facility] 1.2.840.114 [id number] 16:45:00 23:59:00 Daquan Paola 350.1.13.10 [place] 4.2.7.2.686 [place] [id number] Results Test Description Test Time Test Comments Results Result Comments Source SURG 2021-02-11 13:53:00 Test Item Value Reference Range Interpretation Comme nts SURG RUN DATE: (test 02/11/21 [facility] Prepared Response d - LAB PAGE 1 RUN TIME: 1353 Specimen Inquiry RUN USER: INTERFACE code = PATIENT: SURG) LEONARD DÍAZ ACCT #: [id number] LOC: [facility] U #: [id number] AGE/SX: 45/F ROOM: RE01/30/21REG DR: Brittny Luo : 79 BED: DIS: ST ATUS: [facility] TLOC: SPEC #: [id number] RECD: 01/31/211743 STATUS: EPHRAIM REArnie #: [id number] RODRIGUEZ: 01/31/21- [address]: Brittny Luo MD ENTERED: 01/31/21 SP TYPE: SURG OTHR DR: No Primary or Family PhysicianORDERED: SURG PATH LVL 5 COPIES TO: No Primary or Family Physician Brittny Luo MD [address] [place] [address] HISTOLOGY: TISSUE ID BLK PCS DANA LEV PROCEDURE DISPOSITION __ ____ ___ ___ ___ SOFT TISSUES, N A 1 PROCEDURES: SURG PATH LVL 5 (01/31/21) TISSUES: A. SOFT TISSUES, NOS - CUL DE SAC WALL ENDOMETRIOSIS CPT CODES CPT CODE(S): 55579 , , , , , , FINAL DIAGNOSIS "Cul-de-sac wall endometriosis," excision: SE GMENTS OF SOFT TISSUE, NEGATIVE FOR ENDOMETRIOSIS GROSS DESCRIPTION Cul-de-sac wall endometriosi s. Received in formalin is an irregular fragment of middleton-brown soft to rubbery tissue, 1.1 x 0.6 x 0.2 cm. The specimen is serially sectioned and the cut surface is middleton-brown and solid. The ent stew specimen is submitted as A. /ba/rupali Grossing performed at [facility], [address] [place] [address], [address], [place] [address]. Data Management Manager: Jose Carlos Siddiqi M.D. CONTINUED ON NEXT PAGE RUN DATE: 02/11/21 [facility] - LAB PAGE 2 RUN TIME: 1353 Specimen Inquiry RUN USER: INTERFACE SPEC #: [facility]:[id number] PATIENT: LEONARD DÍAZ #[id number] (Continued) - MICROSCOPIC DESCRIPTION Cu l-de-sac wall endometriosis. Sections demonstrate segments of unremarkable soft tissue consisting predo minantly of fibroadipose tissue. Deeper sections demonstrate similar findings. Signed SIGNATURE ON FILE Ahmet Ray 02/11/21 135 3 END OF REPORT COMPREHENSIVE METABOLIC [id number] 12:17:00 Test Item Value Reference Range Interpretation [...] (test code = ALKP) COVID 19 INHOUSE [id number] 17:41:00 Test Item Value Reference Range Interpretation Comments COVID 19 INHOUSE AG NEGATIVE Negative Per manu facturer, (test code = negative result s should [id number]) be treated aspr esumptive and, if inconsi stent with clinical signs andsymptoms or necessary for patient man agement, should betested with an alternative mol ecular assay. Negative resultsdo not preclude SA RS-CoV-2 infection and s hould not be usedas the s ole basis for patient man agement decisions. Nega tive results should be considered in t he context of apatient's r ecent exposures, hist ory, presence of cli nicalsigns and symptoms co nsistent with COVID-19. CBC W/AUTO [id number] 17:07:00 Test Item Value Reference Range Interpretation [...] code NO DIFF/SCN CRITERIA = MDIFF) URINALYSIS [id number] 17:05:00 Test Item Value Reference Range Interpretation [...] Specimen Type: Clean CatchUS Abdominal with Liver [id number] 20:52:00EXAM: US ABDOMINAL WITH LIVER ELASTOGRAPHY CLINICAL DATA: K74.00 Hepatic fibrosis unspecified, K76.0Fatty (change of) liver not elsewhere classified, hepatic steatosis COMPARISON: MRI abdomen dated March 13, 2020 IMPRESSION: LIVER: The liver demonstrates normal echogenicity without intrahepatic biliary ductal dilatation. Ill-defined echogenic regions seen in the left hepatic lobe, likely reflects focal fatty infiltration. 2D-Shear wave elastography was performed; 10 measurements were obtained from the right hepatic lobe per protocol. The median shear wave velocity was 0.95 m/s, most compatiblewith METAVIR stage F0, no fibrosis (see reference ranges for [employer] Logiq E9 with C1-6 Mhz probe below).Please note that velocities/stiffness may ALSO be elevated [...] 30% indicates a reliable dataset). GALLBLADDER: Status postcholecystectomy. CBD: The common bile duct measures 0.5-0.6 cm, within normal limits. MPV: Doppler evaluation of the portal vein demonstrates normal hepatopetal flow. The main portal vein measures 1.0 cm in diameter, within normal limits. PANCREAS: The visualized portions of the pancreas are within nor mal limits. SPLEEN: The spleen is homogeneous and [...] ectasia or aneurysm. IVC: The visualized portions of the inferior vena cava are unremarkable. ASCITES: No ascites or abnormal fluid collections are seen. PLEURAL EFFUSION: There are no pleural effusions. SUMMARY: 1.No evidence of fibrosis. 2.Ill-defined echogenic area in the left hepatic lobe likely reflects focal fatty infiltration. [facility]-[id number] Dictated and approved by outside residential sales professional/fellow: Mauricio Arita M.D. I, Cornelius Langford MD, personally reviewed the images and resident's/fellow's findings and agree with the final report.[facility], Radiology Results Incoming - 12/13/2020 3:55 PM CDTFormatting of this note might be different from the o riginal.EXAM: US ABDOMINAL WITH LIVER ELASTOGRAPHYCLINICAL DATA: K74.00 Hepatic fibrosis unspecified, K76.0 Fatty (change of) liver not elsewhere classified, hepatic steatosisCOMPARISON: MRI abdomen dated March 13, 2020IMPRESSION:LIVER: The liver demonstrates normal echogenicity without intrahepatic biliary ductal dilatation. Ill-defined echogenic regions seen in the left hepatic lobe, likely reflects focal fatty infiltration.2D-Shear wave elastography was performed; 10 measurements were obtained from the right hepatic lobe per protocol. The median shear wave velocity was 0.95 m/s, most compatible with METAVIR stage F0, no fibrosis (see reference ranges for [employer] Logiq E9 with C1-6 Mhz probe below). [...] hepatopetal flow. The main portal vein measures 1.0cm in diameter, within normal limits.PANCREAS: The visualized [...] No ascites or abnormal fluid collections are seen.PLEURALEFFUSION: There are no pleural effusions.SUMMARY:1.No evidence of fibrosis.2.Ill-defined echogenic area in the left hepatic lobe likely reflects focal fatty infiltration.[facility]- [id number] and approved by outside residential sales professional/fellow: Mauricio Arita M.D.I, Cornelius Langford MD, personally reviewed theimages and resident's/fellow's findings and agree with the final report.[facility] metabolic [id number] 10:33:00 Test Item Value Reference Range Interpretation Comments Glucose (test code = 88 mg/dL 65-99 2345-7) BUN (test code = 10 mg/dL 7-25 3094-0) Creatinine (test code 0.67 mg/dL 0.50-1.10 = 2160-0) EGFR Non-Afr. See_Comment [Automated Russian (test code = messag e] The 2775) system which generated this result transmit perla reference range : > OR = 60 mL/min/1.73m2. The reference range was not used to interpret this result as normal/abnormal . EGFR See_Comment [Auto mated (test code = 56429-6) messag e] The system which generated this [...] . Sodium (test code = 142 mmol/L 266-397 5007-2) Potassium (test code 3.8 mmol/L 3.5-5.3 = 2823-3) Chloride (test code = 104 mmol/L 98-110 2075-0) CO2 (test code = 33 mmol/L 20-32 H 2027-9) Calcium (test code = 9.6 mg/dL 8.6-10.2 27437-0) Protein (test code = 6.8 g/dL 6.1-8.1 2885-2) Albumin, S (test code 4.3 g/dL 3.6-5.1 = 1751-7) Globulin, total (test See_Comment [Auto mated code = 27967-0) message] The system which generated this result transmit perla reference range : 1.9 - 3.7 g/dL (calc). The reference range was not used to interpret this result as normal/abnormal . Albumin/globulin See_Comment [Automated ratio (test code = message] The 1759-0) system which generated this result transmit perla reference range : 1.0 - 2.5 (calc ). The reference range was not u sed to interpret th is result as normal/abnormal . Total bilirubin (test 0.4 mg/dL 0.2-1.2 code = 1975-2) Alkaline phosphatase 54 U/L 31-125 (test code = 6768-6) AST (test code = 19 U/L 04-19-8) ALT (test code = 22 U/L 12-17-6) RAC (test code = RAC) Lab Interpretation Abnormal (test code = 37546-3) [facility] with platelet and [id number] 10:33:00 Test Item Value Reference Range Interpretation Comments WBC (test code = See_Comment [Automated message] 6690-2) The system [employer] generated this result transmitted ref erence range: 3.8 - 10 .8 Thousand/uL. [facility] reference range was not used to int erpret this result as normal/abnormal . RBC (test code = See_Comment [Automated message] 789-8) The system [employer] generated this result transmitted ref erence range: [...] ated message] code = 777-3) The system whi ch generated this result transmitted ref erence [...] = 706-2) RAC (test code = RAC) [facility] Abdomen W Wo [id number] 13:17:31EXAMINATION: MRI ABDOMEN W WO CONTRAST HISTORY: 44 years old Female. R74.8 Abnormal levels of other serum enzymes, K76.0 Fatty (change of) liver not elsewhere classified, Liver lesion >1cm noted on recent liver ultrasound, no known malignancy. TECHNIQUE: MRI of the abdomen was performed without andwith IV Gadolinium contrast. COMPARISON: Abdominal ultrasound with liver elastography 03/06/2020 FINDINGS: Liver: Liver measures 15.5 cm in craniocaudal [...] caliber and tapers normally, likely sequela of cholecystectomy.No intrahepatic biliary ductal dilatation. Vasculature: Portal veins [...] liver without suspicious lesions.3. Status post cholecystectomy. [facility]- [id number] Interface, Radiology Results Incoming - 03/13/2020 8:20 AM CDT EXAMINATION: MRI ABDOMEN W WO CONTRAST HISTORY: 44 years old Female. R74.8 Abnormal levels of other serum enzymes, K76.0 Fatty (change of) liver not elsewhere classified, Liver lesion >1cm noted on recent liver ultrasound, no known malignancy.TECHNIQUE: MRI of the abdomen was performed without and with IV Gadolinium contrast.COMPARISON: Abdominal ultrasound with liver elastography 03/06/2020FINDINGS:Liver: Liver measures 15.5 cm in craniocaudal dimension with a smooth contour. Normal parenchymal signal intensity. There is a 2.2 cm focus of signal dropout on opposed phase series in hepatic segment 4B anteriorly (series 3A, image 93) which correlateswith findings on recent liver ultrasound and is [...] duct is normal in caliber. No fluid col lection.Spleen: Normal, not enlarged, measures 10 cm in craniocaudal dimension.Kidneys: No hydronephrosis.Other findings: No pleural or pericardial effusion. No suspicious osseous lesions. Small fat-containing umbilical hernia.IMPRESSION: 1. 2.2 cm benign focal fat in hepatic segment 4B corresponding with findings on recent liver ultrasound.2. Otherwise normal MR appearance of the liver without suspicious lesions.3. Status post cholecystectomy.[facility]-[id number] [facility] LakewayCelia panel reflex to titer 2020-03-04 22:08:00 Test Item Value Reference Range Interpretation Comments Gliadin IgA (test code = See_Comment [A utomated message] 61426-3) The system [employer] generated this result transmitted ref erence range: 0 - 19 u nits. The reference r gordon was not used to interpret this result as normal/abnor mal. Tissue transglutaminase Ab, <2 0-3 IgA (test code = 57213-3) MARSHA (test code = MARSHA) [facility]-kid[facility] microsome Ab, [id number] 18:08:00 Test Item Value Reference Range Interpretation Comments Liver-kidney microsome See_Comment [Aut omated message] The Ab, IgG (test code = system which generated 33964-8) this result tra nsmitted reference range : 0.0 - 20.0 Units. The reference range was not u sed to interpret this result as normal/abnormal . MARSHA (test code = MARSHA) [facility] [id number] 01:07:00 Test Item Value Reference Range Interpretation Comments F-actin (smooth See_Comment [Automated message] The muscle) Ab, IgG (test system which generated this code = 57338-4) result trans mitted reference range : 0 - 19 Units. The refe rence range was not used to interpret this result as normal/abnormal . MARSHA (test code = MARSHA) [facility] CentralCeruloplasmin [id number] 00:08:00 Test Item Value Reference Range Interpretation Comments Ceruloplasmin (test code = 2064-4) 32.4 mg/dL 19.0-39.0 MARSHA (test code = MARSHA) [facility] CentralAlpha-1 antitrypsin [id number] 23:08:00 Test Item Value Reference Range Interpretation Comments Alpha-1 antitrypsin (test code = 162 mg/dL 883-843 7586-9) MARSHA (test code = MRASHA) [facility] CentralImmunoglobulin G, A, [id number] 15:10:00 Test Item Value Reference Range Interpretation Comments IgG (test code = 2465-3) 1035 mg/dL 586-1602 IgA (test code = 2458-8) 105 mg/dL 87-352 IgM (test code = 2472-9) 104 mg/dL 26-217 MARSHA (test code = MARSHA) [facility] CentralFerritin [id number] 10:08:00 Test Item Value Reference Range Interpretation Comments Ferritin level (test code = 2276-4) 218 ng/mL 15-150 H MARSHA (test code = MARSHA) Lab Interpretation (test code = Abnormal 25097-5) [facility] CentralProthrombin time with [id number] 10:08:00 Test Item Value Reference Range Interpretation Comments INR (test code = 6301-6) 0.8-1.2 Prothrombin time (test See_Comment [Aut omated message] The code = 5902-2) system which generated this result tra nsmitted reference range : 9.1 - 12.0 sec. The r eference range was not u sed to interpret this result as normal/abnormal . MARSHA (test code = MARSHA) [facility] CentralHepatic function [id number] 08:07:00 Test Item Value Reference Range Interpretation Comments Protein (test code = 7.2 g/dL 6.0-8.5 2885-2) Albumin, S (test code 4.8 g/dL 3.8-4.8 = 1751-7) Total bilirubin (test 0.3 mg/dL 0.0-1.2 code = 1975-2) Bilirubin direct (test 0.08 mg/dL 0.00-0.40 code = 1967-7) Alkaline phosphatase See_Comment [Autom ated message] (test code = 6768-6) The sys tem which generated this result transmitted ref erence range: 39 - 117 IU/L. The reference r gordon was not used to interpret this result as normal/abnor mal. AST (test code = See_Comment [Automated message] 1920-01) The system [employer] h generated this result transmitted ref erence range: 0 - 40 I U/L. The reference r gordon was not used to interpret this result as normal/abnor mal. ALT (test code = See_Comment [Automated message] 1741-11) The system [employer] h generated this result transmitted ref erence range: 0 - 32 I U/L. The reference r gordon was not used to interpret this result as normal/abnor mal. MARSHA (test code = MARSHA) [facility]
[2022-02-14 10:33] LABS: Absolute Lymphocytes (CBC) 1.8 K/uL (0.7-4.9); Hematocrit 35.6 % (36.0-45.0); Lymphocytes % 45.1 % (15.3-44.8); MCV 82.3 fL (80-100); MPV 6.6 fL (7.6-11.3); RBC Red Blood Cell Count 4.32 M/uL (3.86-4.86)
[2022-02-14] MEDS ORDERED: KETOROLAC 30 MG/ML INJ ONE (10:37)
[2022-02-14] MEDS ORDERED: NA CHLORIDE 0.9% 1,000 ML ONE (10:37)
[2022-02-14] MEDS ORDERED: dexAMETHasone 10 MG/ML VIAL ONE (10:37)
[2022-02-14 10:51] LABS: ALT/SGPT 36 U/L (12-78); AST/SGOT 27 U/L (15-37); Albumin 4.1 g/dL (3.4-5.0); Alkaline Phosphatase 52 U/L (45-117); BUN Blood Urea Nitrogen 9 mg/dL (7-18); Bicarbonate 25 mmol/L (21-32); Bilirubin Direct 0.1 mg/dL (0-0.2); Bilirubin Total 0.4 mg/dL (0.2-1.0); Glomerular Filtration Rate 88 ml/min (=/>90); Glucose Level 107 mg/dL (74-106); Magnesium 2.1 mg/dL (1.8-2.4); NT PRO-BNP 129 pg/mL (<125); Potassium 3.5 mmol/L (3.5-5.1); Protein, Total 7.3 g/dL (6.4-8.2); Sodium Level 139 mmol/L (136-145)
[2022-02-14 10:55] LABS: Troponin High Sensitivity < 3.0 pg/mL (<58.9)
--- NOTE | 2022-02-14 11:03 | RAD REPORT ---
EXAM DESCRIPTION: RAD - Chest Single View - 02/14/2022 10:47 am CLINICAL HISTORY: Cough COMPARISON: No comparisons FINDINGS: Lines: None. Lungs: No evidence of edema or pneumonia. Pleural: No significant pleural effusions or pneumothorax. Cardiac: The heart size is within normal limits. Bones: No acute fractures. Other: IMPRESSION: No acute cardiopulmonary disease.
--- NOTE | 2022-02-14 11:49 | EDPHYS ---
Physician Documentation [facility] Name: Radha Mcleod Age: 46 yrs Sex: Female : 1975 Arrival Date: 02/14/2022 Time: 09:37 Bed 11 Private MD: Whitley Key K ED Physician Reginaldo Quiñones HPI: 02/14 10:05 This 46 yrs old Female presents to ER via Ambulatory with complaints of Sore Throat, cp Headache, Congestion, Shortness Of Breath, Dizziness. 10:05 The patient has shortness of breath at rest. cp 10:05 Patient reports developing cough, sore throat and being diagnosed with COVID-19 on cp 02-07-2022. Took Plaxlovid and symptoms improved. Cough, sore throat worsened Wednesday. Historical: - PMHx: 09:53 Endometriosis; Rheumatoid arthritis; mb8 - PSHx: 09:53 Cholecystectomy; hysterectomy; mb8 - Immunization history:: Client reports receiving the 2nd dose of the Covid vaccine. - Social history:: Smoking status: Patient denies any tobacco usage or history of. ROS: 10:10 Constitutional: Positive for body aches, Negative for chills, fever. cp 10:10 Eyes: Negative for injury, pain, redness, and discharge. cp 10:10 ENT: Positive for sore throat, Negative for drainage from ear(s), ear pain, difficulty swallowing, difficulty handling secretions. 10:10 Cardiovascular: Negative for chest pain, edema, palpitations. 10:10 Respiratory: Positive for cough, with no reported sputum, shortness of breath. 10:10 Abdomen/GI: Negative for abdominal pain, nausea, vomiting, and diarrhea. 10:10 : Negative for urinary symptoms. 10:10 Skin: Negative for rash. 10:10 Neuro: Positive for headache, Negative for altered mental status, weakness. 10:10 All other systems are negative. Exam: 10:15 Constitutional: The patient appears in no acute distress, alert, awake, cp non-diaphoretic, non-toxic, well developed, well nourished. 10:15 Head/Face: Normocephalic, atraumatic. cp 10:15 Eyes: Periorbital structures: appear normal, Conjunctiva: normal, no exudate, no injection, Sclera: no appreciated abnormality, Lids and lashes: appear normal, bilaterally. 10:15 ENT: External ear(s): are unremarkable, Ear canal(s): are normal, clear, TM's: dullness, bilaterally, Nose: is normal, Mouth: Lips: moist, Oral mucosa: pink and intact, moist, Posterior pharynx: Airway: no evidence of obstruction, patent, Tonsils: with erythema, no enlargement, no exudate, swelling, is not appreciated, erythema, that is mild, exudate, is not appreciated. 10:15 Neck: ROM/movement: is normal, is supple, without pain, no range of motions limitations, no meningismus, no nuchal rigidity. 10:15 Chest/axilla: Inspection: normal. 10:15 Cardiovascular: Rate: tachycardic, Rhythm: regular, Edema: is not appreciated, JVD: is not appreciated. 10:15 Respiratory: the patient does not display signs of respiratory distress, Respirations: labored breathing, that is mild, Breath sounds: bronchial sounds, that are mild, are heard diffusely, stridor, is not appreciated. 10:15 Abdomen/GI: Inspection: abdomen appears normal, Palpation: abdomen is soft and non-tender, in all quadrants. 10:15 Back: pain, is absent, ROM is normal. 10:15 Skin: cellulitis, is not appreciated, no rash present. 10:15 Neuro: Orientation: to person, place \\T\\ time. Mentation: is normal, Motor: moves all fours, strength is normal, Sensation: is normal. 10:23 ECG was reviewed by the Attending Physician. cp Vital Signs: 09:49 BP 129 / 75; Pulse 108; Resp 16; Temp 98.3; Pulse Ox 100% on R/A; Pain 8/10; kj1 10:55 BP 99 / 68; Pulse 80; Resp 16; Pulse Ox 99% on R/A; mb8 MDM: 09:55 Patient medically screened. cp 11:00 Differential diagnosis: pneumonia, Pneumothorax pulmonary edema, Pulmonary Embolism cp Sepsis Unstable Angina COVID-19, influenza, strep throat. 11:48 Data reviewed: vital signs, nurses notes, lab test result(s), EKG, radiologic studies, cp plain films. 11:48 Test interpretation: by ED physician or midlevel provider: ECG, plain radiologic cp studies. Counseling: I had a detailed discussion with the patient and/or guardian regarding: the historical points, exam findings, and any diagnostic results supporting the discharge/admit diagnosis, lab results, radiology results, to return to the emergency department if symptoms worsen or persist or if there are any questions or concerns that arise at home. 02/14 09:59 Order name: Basic Metabolic Panel; Complete Time: 11:19 02/14 11:19 Interpretation: Normal except: CL 108; GLUC 107; GFR 88. 02/14 09:59 Order name: CBC with Diff 02/14 11:20 Interpretation: Normal except: WBC 3.90; HCT 35.6; MPV 6.6; LYM% 45.1; NEUT A 1.7. 02/14 09:59 Order name: D-Dimer; Complete Time: 11:19 02/14 09:59 Order name: LFT's; Complete Time: 11:19 02/14 09:59 Order name: Magnesium; Complete Time: 11:19 02/14 09:59 Order name: NT PRO-BNP; Complete Time: 11:19 02/14 09:59 Order name: Troponin HS; Complete Time: 11:19 02/14 09:59 Order name: XRAY Chest (1 view); Complete Time: 11:19 02/14 09:59 Order name: Strep; Complete Time: 11:19 02/14 09:59 Order name: Cass Screen Profile; Complete Time: 11:19 02/14 09:59 Order name: Influenza Screen (a \\T\\ B); Complete Time: 11:19 02/14 11:20 Interpretation: Abnormal: FLUB FLU B ----- POSITIVE for FLU B protein antigen. 02/14 09:59 Order name: COVID-19 SARS RT PCR (Document "Date of Onset" if Symptomatic); Complete cp Time: 1102/14 11:20 Interpretation: SARSCOV2 RT PCR NEGATIVE; Reviewed. 02/14 10:40 Order name: Manual Differential [facility] 02/14 10:53 Order name: Throat Culture [facility] 02/14 09:59 Order name: EKG; Complete Time: 10:00 02/14 09:59 Order name: Cardiac monitoring; Complete Time: 10:50 02/14 09:59 Order name: EKG - Nurse/Tech; Complete Time: 10:50 cp 02/14 09:59 Order name: IV Saline Lock; Complete Time: 10:50 cp 02/14 09:59 Order name: Labs collected and sent; Complete Time: 10:50 cp 02/14 09:59 Order name: O2 Per Protocol; Complete Time: 10:50 cp 02/14 09:59 Order name: O2 Sat Monitoring; Complete Time: 10:50 cp EC:23 Rate is 100 beats/min. Rhythm is regular. MI interval is normal. QRS interval is cp normal. QT interval is normal. Interpreted by me. Reviewed by me. Administered Medications: 10:49 Drug: Dexamethasone 6 mg Route: IVP; Site: right antecubital; mb8 12:06 Follow up: Response: No adverse reaction; Marked relief of symptoms mb8 10:49 Drug: NS 0.9% 1000 ml Route: IV; Rate: 1 bolus; Site: right antecubital; mb8 12:06 Follow up: Response: No adverse reaction; Marked relief of symptoms; IV Status: mb8 Completed infusion 10:49 Drug: Ketorolac 15 mg Route: IVP; Site: right antecubital; mb8 12:05 Follow up: Response: No adverse reaction; Marked relief of symptoms mb8 Disposition: 16:23 Co-signature as Attending Physician, Rgeinaldo Quiñones MD. rn Disposition Summary: 02/14/22 11:48 Discharge Ordered Location: Home cp Problem: new cp Symptoms: have improved cp Condition: Stable cp Diagnosis - Influenza due to other identified influenza virus with other respiratory cp manifestations Followup: cp - With: Private Physician - When: 2 - 3 days - Reason: Worsening of condition Discharge Instructions: - Discharge Summary Sheet cp - Influenza, Adult cp Forms: - Medication Reconciliation Form cp - Thank You Letter cp - Antibiotic Education cp - Prescription Opioid Use cp Prescriptions: - Medrol (Hola) 4 mg Oral Tablets, Dose Pack - take 1 tablet by ORAL route as directed - follow package instructions; 1 cp packet; Refills: 0, Product Selection Permitted - Tamiflu 75 mg Oral Capsule - take 1 tablet by ORAL route every 12 hours for 5 days; 10 tablet; Refills: 0, cp Product Selection Permitted - albuterol sulfate 90 mcg/actuation Inhalation HFA aerosol inhaler - inhale 1 puff by INHALATION route every 4-6 hours; 1 Inhaler; Refills: 0, cp Product Selection Permitted Signatures: Dispatcher [employer] Reginaldo Aguero MD MD rn Page, Corey, PA PA cp Bates, Michael RN RN mb8
--- NOTE | 2022-02-14 11:49 | ER ---
Nurse's Notes [facility] Name: Radha Mcleod Age: 46 yrs Sex: Female : 1975 Arrival Date: 02/14/2022 Time: 09:37 Bed 11 Private MD: Whitley Key K Diagnosis: Influenza due to other identified influenza virus with other respiratory manifestations Presentation: 02/14 09:50 Chief complaint: Patient states: she was dx with covid on 02/07/22 and thought she was mb8 getting better until Wednesday. Patient c/o sore throat, PLAZA, hoarse voice, productive cough, and feeling dizzy. Denies any CP or SOB. Coronavirus screen: Vaccine status: Patient reports receiving the 2nd dose of the covid vaccine. cough unrelated to allergies, headache, sore throat, Client presents with at least one sign or symptom that may indicate coronavirus-19. Client reports previous positive COVID test result. Date of collection: February 07, 2022. Ebola Screen: Patient negative for fever greater than or equal to 101.5 degrees Fahrenheit, and additional compatible Ebola Virus Disease symptoms Patient denies exposure to infectious person. Patient denies travel to an Ebola-affected area in the 21 days before illness onset. No symptoms or risks identified at this time. Initial Sepsis Screen: Does the patient meet any 2 criteria? No. Patient's initial sepsis screen is negative. Does the patient have a suspected source of infection? No. Patient's initial sepsis screen is negative. Risk Assessment: Do you want to hurt yourself or someone else? Patient reports no desire to harm self or others. Onset of symptoms was February 07, 2022. 09:50 Method Of Arrival: Ambulatory mb8 09:50 Acuity: RICHARD 3 mb8 Triage Assessment: 09:54 General: Appears uncomfortable, Behavior is calm, cooperative, appropriate for age. mb8 Pain: Complains of pain in chest Pain currently is 2 out of 10 on a pain scale. Quality of pain is described as only hurts when she coughs deeply. EENT: Reports nasal congestion. Historical: - PMHx: 09:53 Endometriosis; Rheumatoid arthritis; mb8 - PSHx: 09:53 Cholecystectomy; hysterectomy; mb8 - Immunization history:: Client reports receiving the 2nd dose of the Covid vaccine. - Social history:: Smoking status: Patient denies any tobacco usage or history of. Screenin:55 Abuse screen: Denies threats or abuse. Denies injuries from another. Nutritional mb8 screening: No deficits noted. Tuberculosis screening: No symptoms or risk factors identified. Fall Risk None identified. Assessment: 09:55 Cardiovascular: Denies chest pain, shortness of breath. Respiratory: Airway is patent mb8 Respiratory effort is even, unlabored, Breath sounds are diminished bilaterally. EENT: Throat Vital Signs: 09:49 BP 129 / 75; Pulse 108; Resp 16; Temp 98.3; Pulse Ox 100% on R/A; Pain 8/10; kj1 10:55 BP 99 / 68; Pulse 80; Resp 16; Pulse Ox 99% on R/A; mb8 ED Course: 09:37 Patient arrived in ED. as 09:38 Whitley Key MD is Private Physician. as 09:42 Syed Verma PA is PHCP. cp 09:42 Reginaldo Quiñones MD is Attending Physician. cp 09:50 Scar Smith RN is Primary Nurse. mb8 09:53 Triage completed. mb8 09:55 Arm band placed on Patient placed in an exam room. mb8 09:56 Patient has correct armband on for positive identification. mb8 09:56 Placed in gown. Bed in low position. Call light in reach. Side rails up X2. mb8 09:56 No provider procedures requiring assistance completed. mb8 10:28 Inserted saline lock: 20 gauge in right antecubital area, using aseptic technique. mb8 Blood collected. 10:28 COVID swab sent to lab. Flu and/or RSV swab sent to lab. Strep swab sent to lab. mb8 X-ray(s) taken. 10:49 XRAY Chest (1 view) In Process Unspecified. EDMS 12:05 IV discontinued, intact, bleeding controlled, No redness/swelling at site. Pressure mb8 dressing applied. Administered Medications: 10:49 Drug: Dexamethasone 6 mg Route: IVP; Site: right antecubital; mb8 12:06 Follow up: Response: No adverse reaction; Marked relief of symptoms mb8 10:49 Drug: NS 0.9% 1000 ml Route: IV; Rate: 1 bolus; Site: right antecubital; mb8 12:06 Follow up: Response: No adverse reaction; Marked relief of symptoms; IV Status: mb8 Completed infusion 10:49 Drug: Ketorolac 15 mg Route: IVP; Site: right antecubital; mb8 12:05 Follow up: Response: No adverse reaction; Marked relief of symptoms mb8 Medication: 09:55 VIS not applicable for this client. mb8 Outcome: 11:48 Discharge ordered by . jose 12:05 Discharged to home ambulatory. mb8 12:05 Condition: stable 12:05 Discharge instructions given to patient, Instructed on discharge instructions, follow up and referral plans. medication usage, Demonstrated understanding of instructions, follow-up care, medications, Prescriptions given X 3. 12:06 Patient left the ED. mb8 Signatures: Dispatcher [employer] EDMS Melva Frazier Corey, PA PA Seema Joyner [email or web address] Scar Smith, RN RN mb8
[2022-02-14 11:57] LABS: Blood Morphology Comment NOT SEEN (NOT SEEN); Platelet Estimate ADEQ
[2022-02-14 12:29] VITALS: TEMP 98.3
[2022-02-14 12:32] VITALS: BP 99/68; O2SAT 99
--- NOTE | 2022-02-15 12:51 | EKG ---
Test Date: 2022-02-14 Test Time: 10:22:31 [employer] Work[employer]: DARREN MEASUREMENT RESULTS: Intervals: Rate: 100 AR: 136 QRSD: 74 QT: 342 QTc: 441 [place]: P: 67 AR: 136 QRS: 56 T: 44 INTERPRETIVE STATEMENTS: Normal sinus rhythm ST & T wave abnormality, consider anterior ischemia Abnormal ECG No previous ECG available for comparison Electronically Signed On 02-15-22 12:49:29 CDT by Pancho Iniguez
== END 2022-02-14 12:06 | disposition home or self-care (01) ==
LOC: ER 09:36
DX: J10.1 Influenza due to other identified influenza virus with other respiratory manifestations (principal); Z20.822 Contact with and (suspected) exposure to COVID-19
CPT/HCPCS: 96361; 93005; 87070; 85025; 80048; 36415; 83735; 86308; 85379; 80076; 87081; 84484; 83880; 87804 ×2; 71045; 96375; 96374; 99284; U0003; J1100; J7030

== ENCOUNTER 2023-03-30 16:33 | Emergency (ER) | payer SELFPAY ==
--- OUTSIDE RECORDS SUMMARY | 2023-03-30 16:37 | XMS REPORT | Continuity of Care Document ---
:1975 Author Organization [facility] t Address [address] [place] [address] Care Team Providers Name Role Phone CALEB HAYNES Primary Care Physician Unavailable RADHA GUTIERREZ Attending Clinician Unavailable CIELO THOMPSON Attending Clinician Unavailable JEREL MEDAOWS Attending Clinician Unavailable Jak INMAN Attending Clinician Unavailable Jak Mosqueda Attending Clinician TRAVIS RUBI Attending Clinician Unavailable LAB90 Attending Clinician Unavailable Lynn Bennett PT Attending Clinician Travis Rubi MD Attending Clinician Doctor Unassigned, [place] Attending Clinician Unavailable TERRENCE RUIZ Attending Clinician Unavailable Terrence Ruiz MD Attending Clinician DILIA RUIZ Attending Clinician Unavailable JACK_Jessica Attending Clinician Unavailable Leann Shabazz PT Attending Clinician Unavailable KELSI ABRAHAM Attending Clinician Unavailable VICTORIANO DICKINSON Attending Clinician Unavailable Nelly VALENTINE, Geno Attending Clinician Brittny Luo Attending Clinician Unavailable Katelin VALENTINE, Terry Attending Clinician Chelsea Hart MD Attending Clinician Shayy Triana MD Attending Clinician SHAYY TRIANA Attending Clinician Unavailable Royer Simon MD Attending Clinician Refugio Mg MD Attending Clinician Aixa [place] LVN Attending Clinician Unavailable Christine Small MA Attending Clinician Unavailable CALEB HAYNES Attending Clinician Unavailable SHERRIE BOLDEN Attending Clinician Unavailable Radiology Attending Clinician Unavailable Jak INMAN Admitting Clinician Unavailable JCAK_Jessica Admitting Clinician Unavailable Physician, No Primary or Family Admitting Clinician Unavaila [facility] Payers Payer Name Policy Type Policy Number Effective Date Expiration Date S duane AETNA [facility] [id number] 2018 00:00:00 AETNA-90 DEGREE 2 [id number] 2022 BENEFITS 00:00:00 TSHBP 90 DEGREES [id number] 2022 00:00:00 [facility] [id number] 2022 PLANS - OPEN 00:00:00 ACCESS AETNA [id number] 2022 00:00:00 AETNA O [id number] 2018 00:00:00 Problems Condition Condition Condition Status Onset Resolution Last Treating Co mments Source Name Details Category Date Date Treatment Clinician Date GERD GERD Disease Active Lucy (gastroeso (gastroeso 01-20 Se ybold phageal phageal 00:00: - reflux reflux 00 Externa disease) disease) l Rheumatoid Rheumatoid Disease Active Jak [place] aortitis aortitis 01-20 Seybol d 00:00: - 00 Externa l Endometrio Endometrio Disease Active Overview : Lucy sis sis 01-20 Formattin Seybold 00:00: g of this - 00 note Externa might be l different from the original. bowel and bladder all fused to abd wall on right side. Hypothyroi Hypothyroi Disease Active K bebo dism dism 01-20 Seybold (acquired) (acquired) 00:00: - 00 Externa l Leandro' Leandro' Disease Active K elsey s disease s disease 01-20 Seyb old 00:00: - 00 Externa l Bruising Bruising Disease Active Kelse y 01-20 Seybold 00:00: - 00 Externa l Dermatitis Dermatitis Disease Active K elsey 01-20 Seybold 00:00: - 00 Externa l Allergic Allergic Disease Active Kelse y rhinitis rhinitis 01-20 Seybol d 00:00: - 00 Externa l Chronic Chronic Disease Active Univers pain pain 7-03 ity of syndrome syndrome 00:00: [place] [facility] Chronic Chronic Disease Active Univers pelvic pelvic 7-03 ity of pain in pain in 00:00: [place] female female 00 Medical Branch Vaginismus Vaginismus Disease Active U nivers 7-03 ity of 00:00: Medical Branch Vulvodynia Vulvodynia Disease Active 2022- U nivers 7-03 ity of 00:00: [place] [facility] Muscle Muscle Disease Active Univers hypertonic hypertonic 7-03 it y of ity ity 00:00: [place] [facility] Abnormal Abnormal Disease Active 2019-06 Metho di liver liver 0-25 st enzymes enzymes 00:00: Hospita 00 l Fatty Fatty Disease Active 2019-06 [facility] liver liver 0-25 st 00:00: Hospita 00 l 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 0-25 st 00:00: Hospita 00 l Asthma Asthma Problem Resolve 2020-12-08 Mem oria (disorder) (disorder) d 21:21:03 l Resolved Roverto Problem 12/08/2020 Medical Group Disease of Disease Problem Resolve 2020-12-08 Memoria thyroid of thyroid d 21:21:03 l gland gland [place] (disorder) (disorder) Resolved Problem 12/08/2020 Medical Group [...] Medical Group Thyroid Thyroid Problem Active 2020-12-08 Me moria nodule nodule 21:21:03 l (disorder) (disorder) He rmann Active Problem 12/08/2020 Medical Group Allergies, Adverse Reactions, Alerts Allergy Allergy Status Severity Reaction(s) Onset Inactive Treating Comm ents Source Name Type Date Date Clinician pineappl FA Active SV ANAPHYLAXIS [facility] [place] 00:[facility]: d 00 [facility] pineappl FA Active SV 0 [facility] 8[facility]10 [place] 00:[facility]: d 00 [facility] Pineappl Propensi Active Unknown Metho di e ty to Reaction -08 st adverse 00:00: Hospita reaction 00 l s to drug Pineappl Propensi Active Anaphylaxis 2018- U nivers e ty to 2-13 ity of adverse 00:00: [place] reaction 00 Medical s Branch PINEAPPL DRUG Active Anaphylaxis 2018- Uni vers E INGREDI 2-13 ity of 00:00: [place] [address] [facility] Branch No Known DA Active U 2004- [facility] Drug [facility]- [place] [facility]era [facility]: [facility] No Known DA Active U 2004-06 [facility] Contrast 2-08 [place] Allergie 00:00: d s 00 [facility] No Known DA Active U 2004- [facility] Drug 2-08 [place] Allergie 00:00: d s 00 Medical [place] No Known DA Active U 2004- [facility] Other 2-08 [place] Allergie 00:00: d s 00 Medical [place] PINEAPPL DA Active U SWEELING 2004- [facility] E 2-08 [place] 00:[facility]: d [facility] No Known No Known Active Memori a Medicati Medicati l on on [place] Allergie Allergie s s Other Other Active Moderate Memoria Food Food l Allergy< Allergy< Raji n sup>1</s sup>1</s up> up> Family History Family Member Diagnosis Comments Start Date Stop Date Source Family member Colon cancer [facility] Family member Colon polyps [facility] Social History Social Habit Start Date Stop Date Quantity Comments Source History of tobacco Smokes tobacco Un iversity of use daily [facility] Gender identity Universit y of [facility] Sexual orientation Univer sity [facility] Alcohol intake 2023-01-20 2023-01-20 Lifetime Lucy Abel bold - 00:00:00 00:00:00 non-drinker External (finding) Social History 2019-06-15 2019-06-15 [facility] darrel 14:45:18 14:45:18 History of Social 2018-12-29 2018-12-29 Univers ity of function 00:00:00 00:00:00 [facility] Alcohol Comment 2018-05-30 2018-05-30 Maybe three [facility] t 00:00:00 00:00:00 drinks a month Hospital Tobacco use and 2018-05-05 2018-05-05 Smokeless Universit y of exposure 00:00:00 00:00:00 tobacco non-user [facility] [place] [facility] Sex Assigned At [birth year] Lucy Barnes ybold - 00:00:00 00:00:00 External Smoking Status Start Date Stop Date Source Never smoked tobacco Lucy Logan old - External Smokes tobacco daily 2018-05-05 00:00:00 Univers ity [facility] Medications Ordered Filled Start Stop Current Ordering Indication Dosage Frequency Signature Comments Components Source Medication Medication Date Date Medication? Clinician (SIG) Name Name iopamidol 2022- No [id number] 100mL 100 mL, Univers (ISOVUE 03-11 Intravenou ity o f 370-500 mL) 04:15: 04:15 s, ONCE, 1 [place] injection 00 :00 dose, On Medica l 100 mL [facility] Branch 03/10/23 at 2315, Routine diphenhydrA 2022- No 25mg 25 mg, Uni vers MINE 03-11 Slow IV ity of (BENADRYL) 03:30: 02:38 Push, [place] injection 00 :00 ONCE, 1 Medical 25 mg dose, On Branch 03/10/23 at 2230, STAT metoclopram 0 2022- No 10mg 10 mg, Uni vers monster HCl 03-11 Slow IV ity of (REGLAN) 03:30: 02:37 Push, [place] injection 00 :00 ONCE, 1 Medical 10 mg dose, On Branch Wed03/10/23 at 2230, IAM NaCl 0.9% 0 2022- No 1000mL at 999 Uni vers (NS) bolus 03-11 mL/hr, ity of infusion 03:30: 04:18 1,000 mL, [place] as 1,000 mL 00 :00 IV Medical Infusion, Branch ONCE, 1 dose, On Wed03/10/23 at 2230, STAT ondansetron 2022- No 4mg 4 mg, Slow Univers (ZOFRAN 03-11 IV Push, ity of (PF)) 01:45: 01:31 ONCE, 1 [place] injection 4 00 :00 dose, On Medi taz mg Wed Branch 03/10/23 at 2045, IAM ondansetron 0 Yes [id number] 4mg Take 1 Univers 4 mg 03-11 tablet by ity of disintegrat 00:00: mouth [place] ing tablet 00 every 8 Medica l (eight) Branch hours as needed for Nausea and Vomiting (N/V). Methotrexat 0 Yes 12mg Take 12 mg Lucy e 2.5 MG 8-02 by mouth Seybold oral Tablet 15:37: once a - 35 week Externa l Omeprazole 2022-0 Yes 40mg Take 1 Kelse y 40 MG oral 8-02 capsule Seybol d Delayed 15:28: (40 mg - Release 40 total) by Externa Capsule mouth l daily Hydroxychlo 2022-0 Yes 200mg Take 1 Diego sey roquine 8-02 tablet Seybold Sulfate 200 15:28: (200 mg - MG oral 40 total) by Externa Tablet mouth 2 l times daily Pregabalin 2022-0 Yes 100mg Take 1 Araceli ey 100 MG oral 8-02 capsule Seybo ld Capsule 15:28: (100 mg - 40 total) by Externa mouth 2 l times daily Levothyroxi 2022-0 Yes 150ug Take 1 Diego sey ne Sodium 8-02 tablet Seybold 150 MCG 15:28: (150 mcg - oral Tablet 40 total) by Ext park mouth l daily 6 days a week only Ondansetron 2022-0 Yes 4mg [id number] Take 1 Lucy (ZOFRAN) 4 01-20 [id number] tablet (4 Seybold MG oral 15:28: 3D mg total) - TABLET 40 by mouth Externa DISPERSIBLE every 8 l hours as needed Albuterol 2022-0 2022- No 2{puff} Q.25D Inhale 2 Lucy HFA 108 (90 01-20 puffs into S eybold Base) 15:28: 00:00 the lungs - MCG/ACT IN 40 :00 every 6 Technical Training Manager a AERS hours as l needed Celecoxib 2022-0 Yes [id number] 100mg QD Take 1 K elsey 100 MG oral 01-20 capsule Seybo ld Capsule 00:00: (100 mg - 00 total) by Externa mouth l daily as needed for pain Methotrexat 2022-0 2022- No Kelse y e 12.5 601-20 Seybold MG/0.5ML 00:00: 00:00 - subcutaneou 00 :00 Externa s Solution l Prefilled Syringe methylPREDN 2022-0 Yes [id number] Take 1 antoinette Ayala ISolone 4 11-26 by mouth Seybol d MG oral 00:00: See Admin - Tablet 00 Instructio Externa Therapy ns Use as l Pack directed Pseudoeph-B 2022-0 Yes [id number] 10mL Take 10 mL Lucy romphen-DM - by mouth 4 Sey bold 30-2-10 00:00: times - MG/5ML oral 00 daily Externa Syrup l Amoxicillin 2022-0 2023- No [id number] 875mg Take 1 Lucy 875 MG oral 11-26- tablet Seybo ld Tablet 00:00: 00:00 (875 mg - 00 :00 total) by Externa mouth 2 l times daily for 7 days methylPREDN 2022-0 2022- No [id number] Take 1 antoinette Lucy ISolone 4 11-26- by mouth Seybo ld MG oral 00:00: 00:00 See Admin - Tablet 00 :00 Instructio Externa Therapy ns Use as l Pack directed Pseudoeph-B 2022-0 2022- No [id number] 10mL Take 10 mL Lucy romphen-DM 11-26- by mouth 4 Se ybold 30-2-10 00:00: 00:00 times - MG/5ML oral 00 :00 daily Externa Syrup l Amoxicillin 2022-0 2022- No [id number] 875mg Take 1 Lucy 875 MG oral 11-26-16 tablet Seybo ld Tablet 00:00: 04:59 (875 mg - 00 :00 total) by Externa mouth 2 l times daily for 7 days Montelukast 2022-0 2022- No 10mg Take 1 Diego sey (SINGULAIR) 4-17 04-17 tablet (10 S eybold 10 MG oral 15:53: 00:00 mg total) - Tablet 27 :00 by mouth Externa tablet nightly l Omeprazole 0 Yes 40mg Take 1 Kelse y 40 MG oral 4-17 capsule Seybol d Delayed 15:25: (40 mg - Release 35 total) by Externa Capsule mouth l daily Hydroxychlo 0 Yes 200mg Take 1 Diego sey roquine 4-17 tablet Seybold Sulfate 200 15:25: (200 mg - MG oral 35 total) by Externa Tablet mouth 2 l times daily Pregabalin 0 Yes 100mg Take 1 Araceli ey 100 MG oral 4-17 capsule Seybo ld Capsule 15:25: (100 mg - 35 total) by Externa mouth 2 l times daily Levothyroxi 0 Yes 150ug Take 1 Diego sey ne Sodium 4-17 tablet Seybold 150 MCG 15:25: (150 mcg - oral Tablet 35 total) by Ext park mouth l daily 6 days a week only Ondansetron 2022-0 Yes 4mg Q.[id number] Take 1 Lucy (ZOFRAN) 4 4-17 [id number] tablet (4 Seybold MG oral 15:25: 3D mg total) - TABLET 35 by mouth Externa DISPERSIBLE every 8 l hours as needed Omeprazole 2022-0 Yes 40mg Take 1 Kelse y 40 MG oral 4-17 capsule Seybol d Delayed 15:25: (40 mg - Release 35 total) by Externa Capsule mouth l daily Hydroxychlo 0 Yes 200mg Take 1 Diego sey roquine 4-17 tablet Seybold Sulfate 200 15:25: (200 mg - MG oral 35 total) by Externa Tablet mouth 2 l times daily Pregabalin 0 Yes 100mg Take 1 Araceli ey 100 MG oral 4-17 capsule Seybo ld Capsule 15:25: (100 mg - 35 total) by Externa mouth 2 l times daily Levothyroxi 0 Yes 150ug Take 1 Diego sey ne Sodium 4-17 tablet Seybold 150 MCG 15:25: (150 mcg - oral Tablet 35 total) by Ext park mouth l daily 6 days a week only Ondansetron 0 Yes 4mg Q.[id number] Take 1 Lucy (ZOFRAN) 4 4-17 [id number] tablet (4 Seybold MG oral 15:25: 3D mg total) - TABLET 35 by mouth Externa DISPERSIBLE every 8 l hours as needed Montelukast 2022-0 Yes [id number] 10mg Take 1 Lucy (SINGULAIR) 4-17 tablet (10 Se ybold 10 MG oral 00:00: mg total) - Tablet 00 by mouth Externa tablet nightly l Montelukast 2022-0 Yes [id number] 10mg Take 1 Lucy (SINGULAIR) 4-17 tablet (10 Se ybold 10 MG oral 00:00: mg total) - Tablet 00 by mouth Externa tablet nightly l Montelukast 2022-0 Yes [id number] 10mg Take 1 Lucy (SINGULAIR) 4-17 tablet (10 Se ybold 10 MG oral 00:00: mg total) - Tablet 00 by mouth Externa tablet nightly l Albuterol 2022-0 Yes 2{puff} Q.25D Inhale 2 Lucy HFA 108 (90 4-14 puffs into Se ybold Base) 12:09: the lungs - MCG/ACT IN 16 every 6 Technical Training Manager a AERS hours as l needed Albuterol 0 Yes 2{puff} Q.25D Inhale 2 Lucy HFA 108 (90 4-14 puffs into Se ybold Base) 12:09: the lungs - MCG/ACT IN 16 every 6 Technical Training Manager a AERS hours as l needed Celecoxib 2023-0 Yes 100mg Take 1 Kelse y 100 MG oral 1-20 capsule Seybo ld Capsule 00:00: (100 mg - 00 total) by Externa mouth 2 l times daily Celecoxib 2022-0 Yes 100mg Take 1 Kelse y 100 MG oral 1-20 capsule Seybo ld Capsule 00:00: (100 mg - 00 total) by Externa mouth 2 l times daily Celecoxib 2022-0 202- No 100mg Take 1 Araceli ey 100 MG oral 1-20 -02 capsule Seyb old Capsule 00:00: 00:00 (100 mg - 00 :00 total) by Externa mouth 2 l times daily cranberry 2020-0 2020- No Take by Meth deepika 400 mg 3- 03-[address] capsule 14:50: 00:00 Hospita 01 :00 l loratadine 0 Yes 10mg QD Take 10 mg M ethodi (CLARITIN) 3-[address] 10 mg 14:49: daily. Hospita tablet 59 l montelukast 0 Yes 10mg QD Take 10 mg [facility] (SINGULAIR) 3-[address] 10 mg 14:49: nightly. Hospita tablet 59 l loratadine 0 Yes 10mg QD Take 10 mg M ethodi (CLARITIN) 3-[address] 10 mg 09:49: daily. Hospita tablet 59 l montelukast 0 Yes 10mg QD Take 10 mg [facility] (SINGULAIR) 3-[address] 10 mg 09:49: nightly. Hospita tablet 59 l estradioL 0 Yes 1mg QD Take 1 mg Met hodi (ESTRACE) 1 2-[address] MG tablet 00:00: daily. Hospit a 00 l estradioL 2020-0 Yes 1mg QD Take 1 mg Met hodi (ESTRACE) 1 2-[address] MG tablet 00:00: daily. Hospit a 00 l omeprazole 2020-0 Yes [id number] TAKE ONE [facility] (PriLOSEC) 1-27 (1) st 20 MG 00:00: CAPSULE(S) Hospit a capsule 00 BY MOUTH l TWICE A DAY. omeprazole 2020-0 Yes [id number] TAKE ONE [facility] (PriLOSEC) 1-27 (1) st 20 MG 00:00: CAPSULE(S) Hospit a capsule 00 BY MOUTH l TWICE A DAY. ondansetron 2019-06 Yes [id number] 4mg Take 1 Univers 4 mg 1-16 tablet by ity of disintegrat 00:00: mouth [place] ing tablet 00 every 4 Medica l (four) Branch hours as needed for Nausea and Vomiting (N/V). traMADoL 50 2019-06 Yes [id number] 50mg Take 1 Univ ers mg tablet 1-16 tablet by ity o f 00:00: mouth [place] 00 every 6 Medical (six) Branch hours as needed for Pain (scale 4-6). Indication s: chronic pain ondansetron 2019-06 Yes [id number] 4mg Take 1 Univers 4 mg 1-16 tablet by ity of disintegrat 00:00: mouth [place] ing tablet 00 every 4 Medica l (four) Branch hours as needed for Nausea and Vomiting (N/V). traMADoL 50 2019-06 Yes [id number] 50mg Take 1 Univ ers mg tablet 1-16 tablet by ity o f 00:00: mouth [place] 00 every 6 Medical (six) Branch hours as needed for Pain (scale 4-6). Indication s: chronic pain ondansetron 2019-06 Yes [id number] 4mg Take 1 Univers 4 mg 1-16 tablet by ity of disintegrat 00:00: mouth [place] ing tablet 00 every 4 Medica l (four) Branch hours as needed for Nausea and Vomiting (N/V). traMADoL 50 2019-06 Yes [id number] 50mg Take 1 Univ ers mg tablet 1-16 tablet by ity o f 00:00: mouth [place] 00 every 6 Medical (six) Branch hours as needed for Pain (scale 4-6). Indication s: chronic pain ondansetron 2019-06 Yes [id number] 4mg Take 1 Univers 4 mg 1-16 tablet by ity of disintegrat 00:00: mouth [place] ing tablet 00 every 4 Medica l (four) Branch hours as needed for Nausea and Vomiting (N/V). traMADoL 50 2019-06 Yes [id number] 50mg Take 1 Univ ers mg tablet 1-16 tablet by ity o f 00:00: mouth [place] 00 every 6 Medical (six) Branch hours as needed for Pain (scale 4-6). Indication s: chronic pain ondansetron 2019-06 Yes [id number] 4mg Take 1 Univers 4 mg 1-16 tablet by ity of disintegrat 00:00: mouth [place] ing tablet 00 every 4 Medica l (four) Branch hours as needed for Nausea and Vomiting (N/V). traMADoL 50 2019-06 Yes [id number] 50mg Take 1 Univ ers mg tablet 1-16 tablet by ity o f 00:00: mouth [place] 00 every 6 Medical (six) Branch hours as needed for Pain (scale 4-6). Indication s: chronic pain ondansetron 2019-06 Yes [id number] 4mg Take 1 Univers 4 mg 1-16 tablet by ity of disintegrat 00:00: mouth [place] ing tablet 00 every 4 Medica l (four) Branch hours as needed for Nausea and Vomiting (N/V). traMADoL 50 2019-06 Yes [id number] 50mg Take 1 Univ ers mg tablet 1-16 tablet by ity o f 00:00: mouth [place] 00 every 6 Medical (six) Branch hours as needed for Pain (scale 4-6). Indication s: chronic pain ondansetron 2019-06 Yes [id number] 4mg Take 1 Univers 4 mg 1-16 tablet by ity of disintegrat 00:00: mouth [place] ing tablet 00 every 4 Medica l (four) Branch hours as needed for Nausea and Vomiting (N/V). traMADoL 50 2019-06 Yes [id number] 50mg Take 1 Univ ers mg tablet 1-16 tablet by ity o f 00:00: mouth [place] 00 every 6 Medical (six) Branch hours as needed for Pain (scale 4-6). Indication s: chronic pain ondansetron 2019-06 Yes [id number] 4mg Take 1 Univers 4 mg 1-16 tablet by ity of disintegrat 00:00: mouth [place] ing tablet 00 every 4 Medica l (four) Branch hours as needed for Nausea and Vomiting (N/V). traMADoL 50 2019-06 Yes [id number] 50mg Take 1 Univ ers mg tablet 1-16 tablet by ity o f 00:00: mouth [place] 00 every 6 Medical (six) Branch hours as needed for Pain (scale 4-6). Indication s: chronic pain ondansetron 2019-06 Yes [id number] 4mg Take 1 Univers 4 mg 1-16 tablet by ity of disintegrat 00:00: mouth [place] ing tablet 00 every 4 Medica l (four) Branch hours as needed for Nausea and Vomiting (N/V). traMADoL 50 2019-06 Yes [id number] 50mg Take 1 Univ ers mg tablet 1-16 tablet by ity o f 00:00: mouth [place] 00 every 6 Medical (six) Branch hours as needed for Pain (scale 4-6). Indication s: chronic pain ondansetron 2019-06 Yes [id number] 4mg Take 1 Univers 4 mg 1-16 tablet by ity of disintegrat 00:00: mouth [place] ing tablet 00 every 4 Medica l (four) Branch hours as needed for Nausea and Vomiting (N/V). traMADoL 50 2019-06 Yes [id number] 50mg Take 1 Univ ers mg tablet 1-16 tablet by ity o f 00:00: mouth [place] 00 every 6 Medical (six) Branch hours as needed for Pain (scale 4-6). Indication s: chronic pain ondansetron 2019-06 Yes [id number] 4mg Take 1 Univers 4 mg 1-16 tablet by ity of disintegrat 00:00: mouth [place] ing tablet 00 every 4 Medica l (four) Branch hours as needed for Nausea and Vomiting (N/V). traMADoL 50 2019-06 Yes [id number] 50mg Take 1 Univ ers mg tablet 1-16 tablet by ity o f 00:00: mouth [place] 00 every 6 Medical (six) Branch hours as needed for Pain (scale 4-6). Indication s: chronic pain ondansetron 2019-06 Yes [id number] 4mg Take 1 Univers 4 mg 1-16 tablet by ity of disintegrat 00:00: mouth [place] ing tablet 00 every 4 Medica l (four) Branch hours as needed for Nausea and Vomiting (N/V). traMADoL 50 2019-06 Yes [id number] 50mg Take 1 Univ ers mg tablet 1-16 tablet by ity o f 00:00: mouth [place] 00 every 6 Medical (six) Branch hours as needed for Pain (scale 4-6). Indication s: chronic pain ondansetron 2019-06 Yes [id number] 4mg Take 1 Univers 4 mg 1-16 tablet by ity of disintegrat 00:00: mouth [place] ing tablet 00 every 4 Medica l (four) Branch hours as needed for Nausea and Vomiting (N/V). traMADoL 50 2019-06 Yes [id number] 50mg Take 1 Univ ers mg tablet 1-16 tablet by ity o f 00:00: mouth [place] 00 every 6 Medical (six) Branch hours as needed for Pain (scale 4-6). Indication s: chronic pain ondansetron 2019-06 Yes [id number] 4mg Take 1 Univers 4 mg 1-16 tablet by ity of disintegrat 00:00: mouth [place] ing tablet 00 every 4 Medica l (four) Branch hours as needed for Nausea and Vomiting (N/V). traMADoL 50 2019-06 Yes [id number] 50mg Take 1 Univ ers mg tablet 1-16 tablet by ity o f 00:00: mouth [place] 00 every 6 Medical (six) Branch hours as needed for Pain (scale 4-6). Indication s: chronic pain ondansetron 2019-06 Yes [id number] 4mg Take 1 Univers 4 mg 1-16 tablet by ity of disintegrat 00:00: mouth [place] ing tablet 00 every 4 Medica l (four) Branch hours as needed for Nausea and Vomiting (N/V). traMADoL 50 2019-06 Yes [id number] 50mg Take 1 Univ ers mg tablet 1-16 tablet by ity o f 00:00: mouth [place] 00 every 6 Medical (six) Branch hours as needed for Pain (scale 4-6). Indication s: chronic pain ondansetron 2019-06 Yes [id number] 4mg Take 1 Univers 4 mg 1-16 tablet by ity of disintegrat 00:00: mouth [place] ing tablet 00 every 4 Medica l (four) Branch hours as needed for Nausea and Vomiting (N/V). traMADoL 50 2019-06 Yes [id number] 50mg Take 1 Univ ers mg tablet 1-16 tablet by ity o f 00:00: mouth [place] 00 every 6 Medical (six) Branch hours as needed for Pain (scale 4-6). Indication s: chronic pain ondansetron 2019-06 Yes [id number] 4mg Take 1 Univers 4 mg 1-16 tablet by ity of disintegrat 00:00: mouth [place] ing tablet 00 every 4 Medica l (four) Branch hours as needed for Nausea and Vomiting (N/V). traMADoL 50 2019-06 Yes [id number] 50mg Take 1 Univ ers mg tablet 1-16 tablet by ity o f 00:00: mouth [place] 00 every 6 Medical (six) Branch hours as needed for Pain (scale 4-6). Indication s: chronic pain ondansetron 2019-06 Yes [id number] 4mg Take 1 Univers 4 mg 1-16 tablet by ity of disintegrat 00:00: mouth [place] ing tablet 00 every 4 Medica l (four) Branch hours as needed for Nausea and Vomiting (N/V). traMADoL 50 2019-06 Yes [id number] 50mg Take 1 Univ ers mg tablet 1-16 tablet by ity o f 00:00: mouth [place] 00 every 6 Medical (six) Branch hours as needed for Pain (scale 4-6). Indication s: chronic pain ondansetron 2019-06 Yes [id number] 4mg Take 1 Univers 4 mg 1-16 tablet by ity of disintegrat 00:00: mouth [place] ing tablet 00 every 4 Medica l (four) Branch hours as needed for Nausea and Vomiting (N/V). traMADoL 50 2019-06 Yes [id number] 50mg Take 1 Univ ers mg tablet 1-16 tablet by ity o f 00:00: mouth [place] 00 every 6 Medical (six) Branch hours as needed for Pain (scale 4-6). Indication s: chronic pain elderberry 2019-0 2020- No Q.5D Take by Met [facility] fruit and 03-[address] flower 19:24: 00:00 (two) Hospita 460-115 mg 38 :00 times a l capsule day. levothyroxi Yes = 1 tab, Me moria ne 150 mcg - PO, Daily, l (0.15 mg) 14:53: PLEASE Raji n oral tablet [address] HIRSCH, # 90 ea, 0 Refill(s), Pharmacy: 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, Weight levothyroxi 2020-0 Yes = 1 tab, Me moria ne 150 mcg 9-09 PO, Daily, l (0.15 mg) 14:53: PLEASE Raji n oral tablet [address] HIRSCH, # 90 ea, 0 Refill(s), Pharmacy: [facility], 160.02, cm, 06/15/19 8:38:00 [employer], Height, 83.636, kg, 06/15/19 8:38:00 [employer], Weight levothyroxi 2020-0 Yes = 1 tab, Me moria ne 150 mcg 9-09 PO, Daily, l (0.15 mg) 14:53: PLEASE Raji n oral tablet [address] HIRSCH, # 90 ea, 0 Refill(s), Pharmacy: [facility], 160.02, cm, 06/15/19 8:38:00 [employer], Height, 83.636, kg, 06/15/19 8:38:00 [employer], Weight levothyroxi 2020-0 Yes = 1 tab, Me moria ne 150 mcg 9-09 PO, Daily, l (0.15 mg) 14:53: PLEASE Raji n oral tablet [address] HIRSCH, # 90 ea, 0 Refill(s), Pharmacy: [facility], 160.02, cm, 06/15/19 8:38:00 [employer], Height, 83.636, kg, 06/15/19 8:38:00 [employer], Weight levothyroxi 2020-0 Yes = 1 tab, Me moria ne 150 mcg 9-09 PO, Daily, l (0.15 mg) 14:53: PLEASE Raji n oral tablet [address] HIRSCH, # 90 ea, 0 Refill(s), Pharmacy: [facility], 160.02, cm, 06/15/19 8:38:00 [employer], Height, 83.636, kg, 06/15/19 8:38:00 [employer], Weight levothyroxi 2020-0 Yes = 1 tab, Me moria ne 150 mcg 9-09 PO, Daily, l (0.15 mg) 14:53: PLEASE Raji n oral tablet [address] HIRSCH, # 90 ea, 0 Refill(s), Pharmacy: [facility], 160.02, cm, 06/15/19 8:38:00 [employer], Height, 83.636, kg, 06/15/19 8:38:00 [employer], Weight levothyroxi 2020-0 Yes = 1 tab, Me moria ne 150 mcg 9-09 PO, Daily, l (0.15 mg) 14:53: PLEASE Raji n oral tablet [address] HIRSCH, # 90 ea, 0 Refill(s), Pharmacy: [facility], 160.02, cm, 06/15/19 8:38:00 [employer], Height, 83.636, kg, 06/15/19 8:38:00 [employer], Weight levothyroxi 2020-0 Yes = 1 tab, Me moria ne 150 mcg 9-09 PO, Daily, l (0.15 mg) 14:53: PLEASE Raji n oral tablet [address] HIRSCH, # 90 ea, 0 Refill(s), Pharmacy: [facility], 160.02, cm, 06/15/19 8:38:00 [employer], Height, 83.636, kg, 06/15/19 8:38:00 [employer], Weight levothyroxi 2020-0 Yes = 1 tab, Me moria ne 150 mcg 9-09 PO, Daily, l (0.15 mg) 14:53: PLEASE Raji n oral tablet [address] HIRSCH, # 90 ea, 0 Refill(s), Pharmacy: [facility], 160.02, cm, 06/15/19 8:38:00 [employer], Height, 83.636, kg, 06/15/19 8:38:00 [employer], Weight levothyroxi 2020-0 Yes = 1 tab, Me moria ne 150 mcg 9-09 PO, Daily, l (0.15 mg) 14:53: PLEASE Raji n oral tablet [address] HIRSCH, # 90 ea, 0 Refill(s), Pharmacy: [facility], 160.02, cm, 06/15/19 8:38:00 [employer], Height, 83.636, kg, 06/15/19 8:38:00 [employer], Weight levothyroxi 0 Yes 150 Mem[facility] a ne 150 mcg 5-29 microgram l (0.15 mg) 12:36: = 1 tab, Herm danielle oral tablet 00 PO, Daily, # 90 tab, 0 Refill(s), Pharmacy: [facility] levothyroxi Yes 150 Memori a ne 150 mcg 5-29 microgram l (0.15 mg) 12:36: = 1 tab, Herm danielle oral tablet 00 PO, Daily, # 90 tab, 0 Refill(s), Pharmacy: [facility] levothyroxi Yes 150 Memori a ne 150 mcg 5-29 microgram l (0.15 mg) 12:36: = 1 tab, Herm danielle oral tablet 00 PO, Daily, # 90 tab, 0 Refill(s), Pharmacy: [facility] levothyroxi 0 Yes 150 Memori a ne 150 mcg 5-29 microgram l (0.15 mg) 12:36: = 1 tab, Herm danielle oral tablet 00 PO, Daily, # 90 tab, 0 Refill(s), Pharmacy: [facility] levothyroxi Yes 150 Memori a ne 150 mcg 5-29 microgram l (0.15 mg) 12:36: = 1 tab, Herm danielle oral tablet 00 PO, Daily, # 90 tab, 0 Refill(s), Pharmacy: [facility] levothyroxi 2019-0 Yes 150 Memori a ne 150 mcg 5-29 microgram l (0.15 mg) 12:36: = 1 tab, Herm danielle oral tablet 00 PO, Daily, # 90 tab, 0 Refill(s), Pharmacy: [facility] levothyroxi Yes 150 Memori a ne 150 mcg 5-29 microgram l (0.15 mg) 12:36: = 1 tab, Herm danielle oral tablet 00 PO, Daily, # 90 tab, 0 Refill(s), Pharmacy: [facility] levothyroxi Yes 150 Mem[facility] a ne 150 mcg 5-29 microgram l (0.15 mg) 12:36: = 1 tab, Herm danielle oral tablet 00 PO, Daily, # 90 tab, 0 Refill(s), Pharmacy: [facility] levothyroxi Yes 150 Mem[facility] a ne 150 mcg 5-29 microgram l (0.15 mg) 12:36: = 1 tab, Herm danielle oral tablet 00 PO, Daily, # 90 tab, 0 Refill(s), Pharmacy: [facility] levothyroxi Yes 150 Memori a ne 150 mcg 5-29 microgram l (0.15 mg) 12:36: = 1 tab, Herm danielle oral tablet 00 PO, Daily, # 90 tab, 0 Refill(s), Pharmacy: [facility] levothyroxi Yes 150 Memori a ne 150 mcg 5-29 microgram l (0.15 mg) 12:36: = 1 tab, Herm danielle oral tablet 00 PO, Daily, # 90 tab, 0 Refill(s), Pharmacy: [facility] levothyroxi Yes 150 Memori a ne 150 mcg 5-29 microgram l (0.15 mg) 12:36: = 1 tab, Herm danielle oral tablet 00 PO, Daily, # 90 tab, 0 Refill(s), Pharmacy: [facility] omeprazole 1- No [id number] 20mg Q.5D Take 1 [facility] ([facility]) 06-[address] 20 MG 00:00: 00:00 (20 mg [facility] capsule 00 :00 total) by l mouth 2 (two) times a day. levothyroxi 2018-06 Yes 1 tab 6 Mem oria ne 175 mcg 2-26 days a l (0.175 mg) 15:22: week, PO, [facility] oral tablet 00 Daily, # 78 tab, 1 Refill(s), Pharmacy: [facility] levothyroxi 2018-06 Yes 1 tab 6 Mem oria ne 175 mcg 2-26 days a l (0.175 mg) 15:22: week, PO, [facility] oral tablet 00 Daily, # 78 tab, 1 Refill(s), Pharmacy: [facility] levothyrox 2019 Yes 1 tab 6 Mem oria ne 175 mcg 2-26 days a l (0.175 mg) 15:22: week, PO, [facility] oral tablet 00 Daily, # 78 tab, 1 Refill([facility] 6 Mem o[facility] ne 175 mcg 2-26 days a l (0.175 mg) 15:22: week, PO, [place] [facility] oral tablet 00 Daily, # 78 tab, 1 Refill(s), [facility] Yes 1 tab 6 Mem oria ne 175 mcg 2-26 days a l (0.175 mg) 15:22: week, PO, [place] [facility] oral tablet 00 Daily, # 78 tab, 1 Refill(s), [facility] Yes 1 tab 6 [facility] ne 175 mcg 2-26 days a l (0.175 mg) 15:22: week, PO, [place] oral tablet 00 Daily, # 78 tab, 1 Refill(s), [facility] Yes 1 tab 6 Mem [facility] ne 175 mcg 2-26 days a l (0.175 mg) 15:22: week, PO, [place] oral tablet 00 Daily, # 78 tab, 1 Refill(s), [facility] Yes 1 tab 6 [facility] ne 175 mcg 2-26 days a l (0.175 mg) 15:22: week, PO, [place] [facility] oral tablet 00 Daily, # 78 tab, 1 Refill(s), [facility] Yes 1 tab 6 [facility] ne 175 mcg 2-26 days a l (0.175 mg) 15:22: week, PO, [place] oral tablet 00 Daily, # 78 tab, 1 Refill(s), [facility] Yes 1 tab 6 Mem o[facility] ne 175 mcg 2-26 days a l (0.175 mg) 15:22: week, PO, [place] [facility] oral tablet 00 Daily, # 78 tab, 1 Refill(s), Pharmacy: [facility] [place] levothyroxi 2018-06 Yes 1 tab 6 Mem oria ne 175 mcg 2-26 days a l (0.175 mg) 15:22: week, PO, [place] [facility] oral tablet 00 Daily, # 78 tab, 1 Refill(s), Pharmacy: [facility] [place] levothyroxi 2018-06 Yes 1 tab 6 Mem oria ne 175 mcg 2-26 days a l (0.175 mg) 15:22: week, PO, [place] oral tablet 00 Daily, # 78 tab, 1 Refill(s), Pharmacy: [facility] Pharm[facility] [place] montelukast 2018-06 Yes 10 mg = 1 [...] M emoria Conjugated 2-26 tab, PO, l (FCI) 0.3 14:40: Daily, # Herm danielle MG [...] M emoria Conjugated 2-26 tab, PO, l (FCI) 0.3 14:40: Daily, # Herm danielle MG [...] M emoria 2-26 0 l 14:40: Refill(s) [place] 00 Hydroxychlo 2018-06 Yes 200 mg = 1 Memoria roquine 2-26 tab, PO, l Sulfate 200 14:40: Daily, 0 He rmann MG Oral 00 Refill(s) Tablet multivitami 2018-06 Yes Daily, 0 Me moria n 2-26 Refill(s) l 14:40: Estrogens, 2018-06 Yes 0.3 mg = 1 M emoria Conjugated 2-26 tab, PO, l (FCI) 0.3 14:40: Daily, # Herm danielle MG [...] M emoria Conjugated 2-26 tab, PO, l (FCI) 0.3 14:40: Daily, # Herm danielle MG [...] M emoria Conjugated 2-26 tab, PO, l (FCI) 0.3 14:40: Daily, # Herm danielle MG [...] M emoria Conjugated 2-26 tab, PO, l (FCI) 0.3 14:40: Daily, # Herm danielle MG [...] M emoria Conjugated 2-26 tab, PO, l (FCI) 0.3 14:40: Daily, # Herm danielle MG [...] M emoria Conjugated 2-26 tab, PO, l (FCI) 0.3 14:40: Daily, # Herm danielle MG [...] M emoria Conjugated 2-26 tab, PO, l (FCI) 0.3 14:40: Daily, # Herm danielle MG [...] M emoria Conjugated 2-26 tab, PO, l (FCI) 0.3 14:40: Daily, # Herm danielle MG [...] M emoria Conjugated 2-26 tab, PO, l (FCI) 0.3 14:40: Daily, # Herm danielle MG [...] 2018-06 Yes Daily, 0 Me moria n 2- Refill(s) l 14:40: Estrogens, 2018-06 Yes 0.3 mg = 1 M emoria Conjugated 2-26 tab, PO, l (FCI) 0.3 14:40: Daily, # Herm danielle MG [...] Yes 0 Memoria 2-26 Refill(s) l 14:40: [place] 00 hydroxychlo 2018-06 Yes [facility] roquine [facility]-24 [facility] (PLAQUENIL) 00:00: [facility] 200 mg 00 l tablet hydroxychlo 2018-06 Yes [facility] roquine [facility] (PLAQUENIL) 00:00: [facility] 200 mg 00 l tablet levothyroxi 2019 Yes [id number] Take one [facility] 7-11 tablet by ity of (SYNTHROID) 00:00: mouth 6 [place] [facility] 175 mcg 00 days per Medical tablet week Branch levothyroxi Yes [id number] Take one [facility] ne 7-11 tablet by ity of (SYNTHROID) 00:00: mouth 6 [place] [facility] 175 mcg 00 days per Medical tablet week Branch levothyroxi Yes [id number] Take one [facility] ne 7-11 tablet by ity of (SYNTHROID) 00:00: mouth 6 [place] [facility] 175 mcg 00 days per Medical tablet week Branch levothyroxi 20190 Yes [id number] Take one [facility] ne 7-11 tablet by ity of (SYNTHROID) 00:00: mouth 6 [place] [facility] 175 mcg 00 days per Medical tablet week Branch levothyroxi 20190 Yes [id number] Take one [facility] ne 7-11 tablet by ity of (SYNTHROID) 00:00: mouth 6 [place] [facility] 175 mcg 00 days per Medical tablet week Branch levothyroxi 20190 Yes [id number] Take one [facility] ne 7-11 tablet by ity of (SYNTHROID) 00:00: mouth 6 [place] [facility] 175 mcg 00 days per Medical tablet week Branch levothyroxi 2019-0 Yes [id number] Take one [facility] ne 7-11 tablet by ity of (SYNTHROID) 00:00: mouth 6 [place] [facility] 175 mcg 00 days per Medical tablet week Branch levothyroxi 2019-0 Yes [id number] Take one [facility] ne 7-11 tablet by ity of (SYNTHROID) 00:00: mouth 6 [place] [facility] 175 mcg 00 days per Medical tablet week Branch levothyroxi 20190 Yes [id number] Take one [facility] ne 7-11 tablet by ity of (SYNTHROID) 00:00: mouth 6 [place] [facility] 175 mcg 00 days per Medical tablet week Branch levothyroxi 2019-0 Yes [id number] Take one [facility] ne 7-11 tablet by ity of (SYNTHROID) 00:00: mouth 6 [place] [facility] 175 mcg 00 days per Medical tablet week Branch levothyroxi 2019-0 Yes [id number] Take one [facility] ne 7-11 tablet by ity of (SYNTHROID) 00:00: mouth 6 [place] [facility] 175 mcg 00 days per Medical tablet week Branch levothyroxi 2019-0 Yes [id number] Take one [facility] ne 7-11 tablet by ity of (SYNTHROID) 00:00: mouth 6 [place] [facility] 175 mcg 00 days per Medical tablet week Branch levothyroxi 2019-0 Yes [id number] Take one [facility] ne 7-11 tablet by ity of (SYNTHROID) 00:00: mouth 6 [place] [facility] 175 mcg 00 days per Medical tablet week Branch levothyroxi 2019-0 Yes [id number] Take one [facility] ne 7-11 tablet by ity of (SYNTHROID) 00:00: mouth 6 [place] [facility] 175 mcg 00 days per Medical tablet week Branch levothyroxi 2019-0 Yes [id number] Take one [facility] ne 7-11 tablet by ity of (SYNTHROID) 00:00: mouth 6 [place] [facility] 175 mcg 00 days per Medical tablet week Branch levothyroxi 2019-0 Yes [id number] Take one [facility] ne 7-11 tablet by ity of (SYNTHROID) 00:00: mouth 6 [place] [facility] 175 mcg 00 days per Medical tablet week Branch levothyroxi 2019-0 Yes [id number] Take one [facility] ne 7-11 tablet by ity of (SYNTHROID) 00:00: mouth 6 [place] [facility] 175 mcg 00 days per Medical tablet week Branch levothyroxi 2019-0 Yes [id number] Take one [facility] ne 7-11 tablet by ity of (SYNTHROID) 00:00: mouth 6 [place] [facility] 175 mcg 00 days per Medical tablet week Branch levothyroxi 2019-0 Yes [id number] Take one [facility] ne 7-11 tablet by ity of (SYNTHROID) 00:00: mouth 6 [place] [facility] 175 mcg 00 days per Medical tablet week Branch montelukast 2017-06 Yes 10mg Take 10 mg Univers (SINGULAIR) 1-14 by mouth. ity of 10 mg 08:43: [place] tablet 53 Medical Branch montelukast 2017-06 Yes 10mg Take 10 mg Univers (SINGULAIR) 1-14 by mouth. ity of 10 mg 08:43: [place] tablet [address] [place] [address] 2017-06 Yes 10mg Take 10 mg Univers (SINGULAIR) 1-14 by mouth. ity of 10 mg 08:43: [address] 2017-06 Yes 10mg Take 10 mg Univers (SINGULAIR) 1-14 by mouth. ity of 10 mg 08:43: [address] 2017-06 Yes 10mg Take 10 mg Univers (SINGULAIR) 1-14 by mouth. ity of 10 mg 08:43: [address] 2017-06 Yes 10mg Take 10 mg Univers (SINGULAIR) 1-14 by mouth. ity of 10 mg 08:43: [address] 2017-06 Yes 10mg Take 10 mg Univers (SINGULAIR) 1-14 by mouth. ity of 10 mg 08:43: [address] 2017-06 Yes 10mg Take 10 mg Univers (SINGULAIR) 1-14 by mouth. ity of 10 mg 08:43: [address] 2017-06 Yes 10mg Take 10 mg Univers (SINGULAIR) 1-14 by mouth. ity of 10 mg 08:43: [address] 2017-06 Yes 10mg Take 10 mg Univers (SINGULAIR) 1-14 by mouth. ity of 10 mg 08:43: [address] 2017-06 Yes 10mg Take 10 mg Univers (SINGULAIR) 1-14 by mouth. ity of 10 mg 08:43: [address] 2017-06 Yes 10mg Take 10 mg Univers (SINGULAIR) 1-14 by mouth. ity of 10 mg 08:43: [address] 2017-06 Yes 10mg Take 10 mg Univers (SINGULAIR) 1-14 by mouth. ity of 10 mg 08:43: [address] 2017-06 Yes 10mg Take 10 mg Univers (SINGULAIR) 1-14 by mouth. ity of 10 mg 08:43: [address] 2017-06 Yes 10mg Take 10 mg Univers (SINGULAIR) 1-14 by mouth. ity of 10 mg 08:43: [place] tablet 53 [facility] 2017-06 Yes 10mg Take 10 mg Univers (SINGULAIR) 1-14 by mouth. ity of 10 mg 08:43: [place] tablet 53 [facility] 2017-06 Yes 10mg Take 10 mg Univers (SINGULAIR) 1-14 by mouth. ity of 10 mg 08:43: [place] tablet 53 [facility] 2017-06 Yes 10mg Take 10 mg Univers (SINGULAIR) 1-14 by mouth. ity of 10 mg 08:43: [place] tablet 53 [facility] 2017-06 Yes 10mg Take 10 mg Univers (SINGULAIR) 1-14 by mouth. ity of 10 mg 08:43: [place] tablet 53 [facility] conjugated 2017-06 Yes Premarin Uni vers estrogens 1-14 0.3 mg ity of (PREMARIN) 08:43: tablet [place] 0.3 mg 07 Medical tablet Branch conjugated 2017-06 Yes Premarin Uni vers estrogens 1-14 0.3 mg ity of (PREMARIN) 08:43: tablet [place] 0.3 mg 07 Medical tablet Branch conjugated 2017-06 Yes Premarin Uni vers estrogens 1-14 0.3 mg ity of (PREMARIN) 08:43: tablet [place] 0.3 mg 07 Medical tablet Branch conjugated 2017-06 Yes Premarin Uni vers estrogens 1-14 0.3 mg ity of (PREMARIN) 08:43: tablet [place] 0.3 mg 07 Medical tablet Branch conjugated 2017-06 Yes Premarin Uni vers estrogens 1-14 0.3 mg ity of (PREMARIN) 08:43: tablet [place] 0.3 mg 07 Medical tablet Branch conjugated 2017-06 Yes Premarin Uni vers estrogens 1-14 0.3 mg ity of (PREMARIN) 08:43: tablet [place] 0.3 mg 07 Medical tablet Branch conjugated 2017-06 Yes Premarin Uni vers estrogens 1-14 0.3 mg ity of (PREMARIN) 08:43: tablet [place] 0.3 mg 07 Medical tablet Branch conjugated 2017-06 Yes Premarin Uni vers estrogens 1-14 0.3 mg ity of (PREMARIN) 08:43: tablet [place] 0.3 mg 07 Medical tablet Branch conjugated 2017-06 Yes Premarin Uni vers estrogens 1-14 0.3 mg ity of (PREMARIN) 08:43: tablet [place] 0.3 mg 07 Medical tablet Branch conjugated 2017-06 Yes Premarin Uni vers estrogens 1-14 0.3 mg ity of (PREMARIN) 08:43: tablet [place] 0.3 mg 07 Medical tablet Branch conjugated 2017-06 Yes Premarin Uni vers estrogens 1-14 0.3 mg ity of (PREMARIN) 08:43: tablet [place] 0.3 mg 07 Medical tablet Branch conjugated 2017-06 Yes Premarin Uni vers estrogens 1-14 0.3 mg ity of (PREMARIN) 08:43: tablet [place] 0.3 mg 07 Medical tablet Branch conjugated 2017-06 Yes Premarin Uni vers estrogens 1-14 0.3 mg ity of (PREMARIN) 08:43: tablet [place] 0.3 mg 07 Medical tablet Branch conjugated 2017-06 Yes Premarin Uni vers estrogens 1-14 0.3 mg ity of (PREMARIN) 08:43: tablet [place] 0.3 mg 07 Medical tablet Branch conjugated 2017-06 Yes Premarin Uni vers estrogens 1-14 0.3 mg ity of (PREMARIN) 08:43: tablet [place] 0.3 mg 07 Medical tablet Branch conjugated 2017-06 Yes Premarin Uni vers estrogens 1-14 0.3 mg ity of (PREMARIN) 08:43: tablet [place] 0.3 mg 07 Medical tablet Branch conjugated 2017-06 Yes Premarin Uni vers estrogens 1-14 0.3 mg ity of (PREMARIN) 08:43: tablet [place] 0.3 mg 07 Medical tablet Branch conjugated 2017-06 Yes Premarin Uni vers estrogens 1-14 0.3 mg ity of (PREMARIN) 08:43: tablet [place] 0.3 mg 07 Medical tablet Branch conjugated 2017-06 Yes Premarin Uni vers estrogens 1-14 0.3 mg ity of (PREMARIN) 08:43: tablet [place] 0.3 mg 07 Medical tablet Branch amoxicillin 2017-06 Yes TAKE ONE Un maribeth -clavulanat 1-12 (1) ity of e 875-125 00:00: TABLET(S) [place] [facility] mg per 00 BY MOUTH Medical tablet EVERY Branch TWELVE HOURS. amoxicillin 2017-06 Yes TAKE ONE Un maribeth -clavulanat 1-12 (1) ity of e 875-125 00:00: TABLET(S) [place] [facility] mg per 00 BY MOUTH Medical tablet EVERY Branch TWELVE HOURS. amoxicillin 2017- Yes TAKE ONE Un [facility] -clavulanat 1-12 (1) ity of e 875-125 00:00: TABLET(S) [place] [facility] mg per 00 BY MOUTH Medical tablet EVERY Branch TWELVE HOURS. amoxicillin 2017- Yes TAKE ONE Un mar[facility] -clavulanat 1-12 (1) ity of e 875-125 00:00: TABLET(S) [place] [facility] mg per 00 BY MOUTH Medical tablet EVERY Branch TWELVE HOURS. amoxicillin 2017- Yes TAKE ONE Un [facility] -clavulanat 1-12 (1) ity of e 875-125 00:00: TABLET(S) [place] [facility] mg per 00 BY MOUTH Medical tablet EVERY Branch TWELVE HOURS. amoxicillin 2017- Yes TAKE ONE Un [facility] -clavulanat 1-12 (1) ity of e 875-125 00:00: TABLET(S) [place] mg per 00 BY MOUTH Medical tablet EVERY Branch TWELVE HOURS. amoxicillin 2017- Yes TAKE ONE Un [place] -clavulanat 1-12 (1) ity of e 875-125 00:00: TABLET(S) [place] mg per 00 BY MOUTH Medical tablet EVERY Branch TWELVE HOURS. amoxicillin 2017- Yes TAKE ONE Un [facility] -clavulanat 1-12 (1) ity of e 875-125 00:00: TABLET(S) [place] mg per 00 BY MOUTH Medical tablet EVERY Branch TWELVE HOURS. amoxicillin 2017- Yes TAKE ONE Un [facility] -clavulanat 1-12 (1) ity of e 875-125 00:00: TABLET(S) [place] mg per 00 BY MOUTH Medical tablet EVERY Branch TWELVE HOURS. amoxicillin 2017- Yes TAKE ONE Un [facility] -clavulanat 1-12 (1) ity of e 875-125 00:00: TABLET(S) [place] mg per 00 BY MOUTH Medical tablet EVERY Branch TWELVE HOURS. amoxicillin 2017-1 Yes TAKE ONE Un mar[place] -clavulanat 1-12 (1) ity of e 875-125 00:00: TABLET(S) [place] [facility] mg per 00 BY MOUTH Medical tablet EVERY Branch TWELVE HOURS. amoxicillin 2017- Yes TAKE ONE Un [facility] -clavulanat 1-12 (1) ity of e 875-125 00:00: TABLET(S) [place] [facility] mg per 00 BY MOUTH Medical tablet EVERY Branch TWELVE HOURS. amoxicillin 2017- Yes TAKE ONE Un [facility] -clavulanat 1-12 (1) ity of e 875-125 00:00: TABLET(S) [place] [facility] mg per 00 BY MOUTH Medical tablet EVERY Branch TWELVE HOURS. amoxicillin 2017- Yes TAKE ONE Un [facility] -clavulanat 1-12 (1) ity of e 875-125 00:00: TABLET(S) [place] [facility] mg per 00 BY MOUTH Medical tablet EVERY Branch TWELVE HOURS. amoxicillin 2017- Yes TAKE ONE Un [place] -clavulanat 1-12 (1) ity of e 875-125 00:00: TABLET(S) [place] [facility] mg per 00 BY MOUTH Medical tablet EVERY Branch TWELVE HOURS. amoxicillin 2017- Yes TAKE ONE Un [facility] -clavulanat 1-12 (1) ity of e 875-125 00:00: TABLET(S) [place] [facility] mg per 00 BY MOUTH Medical tablet EVERY Branch TWELVE HOURS. amoxicillin 2017- Yes TAKE ONE Un mar[place] -clavulanat 1-12 (1) ity of e 875-125 00:00: TABLET(S) [place] [facility] mg per 00 BY MOUTH Medical tablet EVERY Branch TWELVE HOURS. amoxicillin 2017- Yes TAKE ONE Un [facility] -clavulanat 1-12 (1) ity of e 875-125 00:00: TABLET(S) [place] [facility] mg per 00 BY MOUTH Medical tablet EVERY Branch TWELVE HOURS. amoxicillin 2017- Yes TAKE ONE Un [facility] -clavulanat 1-12 (1) ity of e 875-125 00:00: TABLET(S) [place] mg per 00 BY MOUTH Medical tablet EVERY Branch TWELVE HOURS. omeprazole 2017-06 Yes TAKE ONE Uni vers 20 mg 1-08 (1) ity of capsule 00:00: [place](S) [place] 00 BY MOUTH Medical TWICE A Branch DAY. omeprazole 2017- Yes TAKE ONE Uni vers 20 mg 1-08 (1) ity of capsule 00:00: CAPSULE(S) [place] 00 BY MOUTH Medical TWICE A Branch DAY. omeprazole 2017- Yes TAKE ONE Uni vers 20 mg 1-08 (1) ity of capsule 00:00: CAPSULE(S) [place] 00 BY MOUTH Medical TWICE A Branch DAY. omeprazole 2017-06 Yes TAKE ONE Uni vers 20 mg 1-08 (1) ity of capsule 00:00: CAPSULE(S) [place] 00 BY MOUTH Medical TWICE A Branch DAY. omeprazole 2017-06 Yes TAKE ONE Uni vers 20 mg 1-08 (1) ity of capsule 00:00: CAPSULE(S) [place] 00 BY MOUTH Medical TWICE A Branch DAY. omeprazole 2017-06 Yes TAKE ONE Uni vers 20 mg 1-08 (1) ity of capsule 00:00: CAPSULE(S) [place] 00 BY MOUTH Medical TWICE A Branch DAY. omeprazole 2017-06 Yes TAKE ONE Uni vers 20 mg 1-08 (1) ity of capsule 00:00: CAPSULE(S) [place] 00 BY MOUTH Medical TWICE A Branch DAY. omeprazole 2017-06 Yes TAKE ONE Uni vers 20 mg 1-08 (1) ity of capsule 00:00: CAPSULE(S) [place] 00 BY MOUTH Medical TWICE A Branch DAY. omeprazole 2017-06 Yes TAKE ONE Uni vers 20 mg 1-08 (1) ity of capsule 00:00: CAPSULE(S) [place] 00 BY MOUTH Medical TWICE A Branch DAY. omeprazole 2017-06 Yes TAKE ONE Uni vers 20 mg 1-08 (1) ity of capsule 00:00: CAPSULE(S) [place] 00 BY MOUTH Medical TWICE A Branch DAY. omeprazole 2017-06 Yes TAKE ONE Uni vers 20 mg 1-08 (1) ity of capsule 00:00: CAPSULE(S) [place] 00 BY MOUTH Medical TWICE A Branch DAY. omeprazole 2017-06 Yes TAKE ONE Uni vers 20 mg 1-08 (1) ity of capsule 00:00: CAPSULE(S) [place] 00 BY MOUTH Medical TWICE A Branch DAY. omeprazole 2017-06 Yes TAKE ONE Uni vers 20 mg 1-08 (1) ity of capsule 00:00: CAPSULE(S) [place] 00 BY MOUTH Medical TWICE A Branch DAY. omeprazole 2017-06 Yes TAKE ONE Uni vers 20 mg 1-08 (1) ity of capsule 00:00: CAPSULE(S) [place] 00 BY MOUTH Medical TWICE A Branch DAY. omeprazole 2017-06 Yes TAKE ONE Uni vers 20 mg 1-08 (1) ity of capsule 00:00: CAPSULE(S) [place] 00 BY MOUTH Medical TWICE A Branch DAY. omeprazole 2017-06 Yes TAKE ONE Uni vers 20 mg 1-08 (1) ity of capsule 00:00: CAPSULE(S) [place] 00 BY MOUTH Medical TWICE A Branch DAY. omeprazole 2017-06 Yes TAKE ONE Uni vers 20 mg 1-08 (1) ity of capsule 00:00: CAPSULE(S) [place] 00 BY MOUTH Medical TWICE A Branch DAY. omeprazole 2017-06 Yes TAKE ONE Uni vers 20 mg 1-08 (1) ity of capsule 00:00: CAPSULE(S) [place] 00 BY MOUTH Medical TWICE A Branch DAY. omeprazole 2017-06 Yes TAKE ONE Uni vers 20 mg 1-08 (1) ity of capsule 00:00: CAPSULE(S) [place] 00 BY MOUTH Medical TWICE A Branch DAY. levothyroxi 2017-06- No Metho di ne 06-26 st (SYNTHROID, 00:00: 00:00 Hospi ta LEVOXYL) 00 :00 l 175 mcg tablet PREMARIN 2017-06- No [facility] 0.3 mg 09-13 st tablet 00:00: 00:00 Hospita 00 :00 l Vital Signs Vital Name Observation Time Observation Value Comments Source Systolic blood 2023-03-11 05:00[facility]00 [facility] 2023-03-11 05:00:00 67 mm[Hg] [facility] Heart rate 2023-03-11 05:00:00 103 /min [facility] Respiratory rate 2023-03-11 05:00:00 16 /min [facility] Oxygen saturation in 2023-03-11 05:00:00 97 /min [facility] Arterial blood by [facility] Pulse oximetry [place] Body temperature 2023-03-11 00:51:00 37.28 [facility] Body height 2023-03-11 00:51:00 162.6 cm [facility] Body weight 2023-03-11 00:51:00 68.947 kg [facility] BMI 2023-03-11 00:51:00 26.09 kg/m2 [facility] Systolic blood 2023-01-20 20:26:00 110 mm[Hg] Lucy Seybold - pressure External Diastolic blood 2023-01-20 20:26:00 80 mm[Hg] Diegose y Seybold - pressure External Heart rate 2023-01-20 20:26:00 80 /min Lucy Jacobs eybold - External Body temperature 2023-01-20 20:26:00 36.61 Ofelia Araceli ey Seybold - External Respiratory rate 2023-01-20 20:26:00 15 /min Araceli ey Seybold - External Body height 2023-01-20 20:26:00 160 cm Lucy Jacobs eybold - External Body weight 2023-01-20 20:26:00 71.215 kg Lucy Jacobs eybold - External BMI 2023-01-20 20:26:00 27.81 kg/m2 Lucy Jacobs eybold - External Oxygen saturation in 2023-01-20 20:26:00 99 /min Lucy Barnesybmalu - Arterial blood by External Pulse oximetry Systolic blood 2022-10-05 20:09:00 110 mm[Hg] Lucy Seybold - pressure External Diastolic blood 2022-10-05 20:09:00 80 mm[Hg] Vero conrad Seybold - pressure External Heart rate 2022-10-05 20:09:00 86 /min Lucy Jacobs eybold - External Body temperature 2022-10-05 20:09:00 36.44 Ofelia Araceli garcia Seybold - External Respiratory rate 2022-10-05 20:09:00 16 /min Araceli garcia Seybold - External Body height 2022-10-05 20:09:00 160 cm Lucy Jacobs eybold - External Body weight 2022-10-05 20:09:00 69.945 kg Lucy Jacobs eybold - External BMI 2022-10-05 20:09:00 27.32 kg/m2 Lucy Jacobs eybold - External Oxygen saturation in 2022-10-05 20:09:00 100 /min Lucy Tanner - Arterial blood by External Pulse oximetry Systolic blood 2020-09-13 14:46:00 128 mm[Hg] [facility] pressure Diastolic blood 2020-09-13 14:46:00 85 mm[Hg] [facility] pressure Heart rate 2020-09-13 14:46:00 81 /min [facility] Body temperature 2020-09-13 14:46:00 36.56 Ofelia [facility] Body height 2020-09-13 14:46:00 162.6 cm [facility] Body weight 2020-09-13 14:46:00 76.204 kg [facility] BMI 2020-09-13 14:46:00 28.84 kg/m2 [facility] Oxygen saturation in 2020-09-13 14:46:00 100 /min [facility] Arterial blood by Pulse oximetry Systolic (mm Hg) 2019-06-15 14:38:00 Demarcusalex mathews [facility] Diastolic (mm Hg) 2019-06-15 14:38:00 [facility] ej [place] Heart Rate 2019-06-15 14:38:00 [facility] Temperature Oral (F) 2019-06-15 14:38:00 98.3 F [facility] Height 2019-06-15 14:38:00 160.02 cm [facility] Weight 2019-06-15 14:38:00 [facility] BMI Calculated 2019-06-15 14:38:00 Binta al [facility] Procedures Procedure Date / Time Performing Clinician Source Performed CT ABDOMEN PELVIS W 2023-03-11 03:19:46 Jak Inman [facility] CONTRAST Medical Branch URINALYSIS 2023-03-11 02:37:00 Jak Inman [facility] LIPASE 2023-03-11 01:33:00 Jak Inman [facility] MAGNESIUM 2023-03-11 01:33:00 Jak Inman [facility] TROPONIN I 2023-03-11 01:33:00 Jak Inman [facility] COMP. METABOLIC PANEL 2023-03-11 01:33:00 Jak Inman [facility] ([id number]) Medical Branch CBC WITH DIFF 2023-03-11 01:33:00 Jak Inman [facility] NOTICE OF PRIVACY 2023-03-11 00:41:22 Doctor Unasscarine, [facility] PRACTICES [facility] CONSENT/REFUSAL FOR 2023-03-11 00:39:58 Doctor Unassigned, [facility] DIAGNOSIS AND TREATMENT [facility] STATEMENT OF PATIENT 2023-01-18 05:01:00 Doctor Unassigned, [facility] FINANCIAL RESPONSIBILITY [facility] STATEMENT OF PATIENT 2023-01-04 05:01:00 Doctor Unassigned, [facility] FINANCIAL RESPONSIBILITY [facility] EXTERNAL PROVIDER - ADC 2022-12-17 05:01:00 [facility] ASSIGNMENT OF BENEFITS 2022-08-10 22:53:37 Doctor Unassigned, Un [facility] OP CLINIC NOTES/CONSULTS 2022-08-03 06:01:00 Doctor Saturnino, [facility] REFERRAL- 2022-07-13 06:01:00 Doctor Saturnino, [facility] REQUEST/RESPONSE [facility] US ABDOMINAL WITH LIVER 2020-12-13 16:57:[address] [facility] ELASTOGRAPHY CBC WITH PLATELET AND 2020-09-13 16:00:00 [facility] DIFFERENTIAL COMPREHENSIVE METABOLIC 2020-09-13 16:00:[address] [facility] PANEL MRI ABDOMEN W WO CONTRAST 2020-03-13 12:35:00 [facility] US ABDOMINAL WITH LIVER 2020-03-06 20:00:[address] [facility] ELASTOGRAPHY FERRITIN LEVEL 2020-03-01 20:05[facility] 2020-03-01 20:05:00 [facility] PROTHROMBIN TIME WITH INR 2020-03-01 20:05:00 [facility] 2020-03-01 [facility]OSOME 2020-03-01 20:05:00 [facility] AB, IGG ANTI-SMOOTH MUSCLE 2020-03-01 20:05:00 [facility] ANTIBODY ALPHA-1 ANTITRYPSIN LEVEL 2020-03-01 20:05:00 KatelinTerry cummings [facility] IMMUNOGLOBULIN G, A, M 2020-03-01 20:05:00 Katelin Terry [facility] Hysterectomy<sup>6</sup> Membarron l [place] Arthroscopy of [facility] knee<sup>2</sup> PAP smear [facility] preparation<sup>9</sup> Hand excision<sup>5</sup> Memori al [place] Mammogram<sup>8</sup> [facility] ermann Endoscopy [facility] Lumpectomy of left [facility] breast<sup>7</sup> Cholecystectomy<sup>4</rao Memori al [facility] p> Colonoscopy [facility] T and A (tonsillectomy [facility] and adenoidectomy) postoperative education<sup>10</sup> Bone density [facility] scan<sup>3</sup> Plan of Care Planned Activity Planned Date Details Comments Source Future Scheduled 2022-02-14 [facility]ITIS B [facility] 03:07:07 VACCINES (1 of 3 - 3-dose series) [code = HEPATITIS B VACCINES (1 of 3 - 3-dose series)] Future Scheduled 2022-02-14 Hepatitis C [facility] 03:07:07 screening (procedure) [code = 164784716] Future Scheduled 2022-02-14 [facility] Test 03:07:07 malignant neoplasm of cervix (procedure) [code = 023161716] Future Scheduled 2022-02-14 BREAST CANCER [facility] Test 03:07:07 SCREENING [code = BREAST CANCER SCREENING] Future Scheduled 2022-02-14 COVID-19 VACCINE (2 [facility] 03:07:07 - Booster for [place] series) [code = COVID-19 VACCINE (2 - Booster for [place] series)] Future Scheduled 2022-02-14 [facility]ZA [facility]ACCINE [facility] 03:07:07 [code = INFLUENZA VACCINE] Future Scheduled COVID-[address] [facility] Test (1) [code = COVID-19 VACCINE (1)] Future Scheduled Hepatitis C [facility] screening (procedure) [code = 808101072] Future Scheduled Screening for [facility] Test malignant neoplasm of cervix (procedure) [code = 744575877] Future Scheduled INFLUENZA VACCINE [facility] Test [code = INFLUENZA VACCINE] Encounters Start End Encounter Admission Attending Care Care Encounter Source Date/Time Date/Time Type Type Clinicians Facility Department ID 2021-04-19 Emergency [facility] [id number] Univers 05:48:51 [facility] 2023-07-05 2023-07-05 Outpatient LUCY GUTIERREZ [id number] Lucy 08:15:00 08:15:00 RADHA Seybol sendy 2023-07-02 2023-07-02 Outpatient LUCY GUTIERREZ [id number] Lucy 08:15:00 08:15:00 RADHA Loganol sendy 2023-04-12 2023-04-12 Outpatient LUCY THOMPSON [id number] Lucy 15:00:00 15:00:00 CIELO kaba 2023-03-15 2023-03-15 Outpatient LUCY MEADOWS [id number] Lucy 00:00:00 00:00:00 JEREL kaba 2023-03-10 2023-03-11 Emergency X Jak INMAN [facility] ERT [id number] Univers 19:53:00 00:16:00 [facility] 2023-03-10 2023-03-11 Emergency MariJak [facility] 1.2.840.114 [id number] Univers 19:53:00 00:16:00 Urszula BURKS 350.1.13.10 [facility] 4.2.7.2.686 [facility] [phone] [address] 2023-03-09 2023-03-09 Outpatient LUCY MEADOWS [id number] Lucy 16:15:00 16:15:00 JEREL kaba 2023-02-09 2023-02-09 Outpatient Jeri RUBI [facility] [id number] Univers 17:00:00 17:00:00 TRAVIS [facility] 2023-02-04 2023-02-04 Outpatient LUCY MEADOWS [id number] Lucy 00:00:00 00:00:00 JEREL Loganol sendy 2023-01-21 2023-01-21 Outpatient LUCY MEADOWS [id number] Lucy 00:00:00 00:00:00 JEREL Seybol d 2023-01-20 2023-01-20 Outpatient LAB90 LUCY LUCY [id number] Lucy 16:05:00 16:05:00 Seybol d 2023-01-20 2023-01-20 Outpatient LUCY MEADOWS LUCY [id number] Lucy 15:30:00 15:30:00 JEREL Seybol d 2023-01-18 2023-01-18 [facility] [id number] Univers 09:30:00 10:54:29 [facility] 2023-01-18 2023-01-18 Ancillary Lynn Bennett [facility] 1.2. 840.114 [id number] Univers 09:30:00 10:54:29 Visit Travis Rubi [facility] 350.1.13.10 [place] [id number] [address] OFFICE BUILDING 2023-01-18 2023-01-18 [facility] [id number] Univers 09:30:00 09:30:00 [facility] 2023-01-18 2023-01-18 Orders Doctor JOSEFINA 1.2.840.114 [id number] Univers 00:00:00 00:00:00 Only Unassigned, JUAN 350.1.13.10 ity of [place] [facility] 4.2.7.2.686 Arthur as [phone] [address] 2023-01-04 2023-01-04 Ancillary Donald Lynn Shakeel [facility] 1.2. 840.114 [id number] Univers 09:30:00 10:30:00 Visit Travis Rubi [facility] 350.1.13.10 [place] [id number] [address] OFFICE BUILDING 2023-01-04 2023-01-04 [facility] [id number] Univers 09:30:00 09:30:00 [facility] 2023-01-04 2023-01-04 Outpatient Jeri RUIZ [facility] [id number] Univers 09:30:00 09:30:00 TERRENCE [facility] 2023-01-04 2023-01-04 Orders Doctor ROCHA 1.2.840.114 [id number] Univers 00:00:00 00:00:00 Only Unassigned, JUAN 350.1.13.10 ity of [place] [facility] 4.2.7.2.686 Arthur as [phone] [address] 2022-12-21 2022-12-21 Ancillary Lynn Bennett [facility] 1.2. 840.114 [id number] Univers 10:30:00 11:30:00 Visit Terrence Ruiz [facility] 350.1.13.10 [place] [id number] [address] OFFICE BUILDING 2022-12-21 2022-12-21 Outpatient Jeri RUIZ [facility] [id number] Univers 10:30:00 10:30:00 TERRENCE hassan [facility] 2022-12-21 2022-12-21 Outpatient Jeri RUIZ [facility] [id number] Univers 10:30:00 10:30:00 TERRENCE [facility] 2022-12-18 2022-12-18 Outpatient [facility] [id number] [place] 00:00:00 00:00:00 621 Method i 2022-12-18 2022-12-18 Outpatient DILIA RUIZ [facility] [id number] [place] 00:00:00 00:00:[address] 2022-12-17 2022-12-17 Orders Doctor ROCHA 1.2.840.114 [id number] Univers 00:00:00 00:00:00 Only Unassigned, JUAN 350.1.13.10 [place] [facility] 4.2.7.2.686 Arthur as [id number] [address] 2022-12-09 2022-12-09 Outpatient FOG_Burke_R AOSM AOSM [id number] Betina 00:00:00 00:00:00 Floyd [id number] [facility] 2022-12-09 2022-12-09 Outpatient FOG_Burke_R AOSM AOSM 655 [id number] Betina 00:00:00 00:00:00 Floyd [id number] [facility] 2022-12-09 2022-12-09 Outpatient FOG_Burke_R AOSM AOSM 655 [id number] Betina 00:00:00 00:00:00 Floyd [id number] [facility] 2022-12-08 2022-12-08 Outpatient R GREYSON [facility] [id number] [facility] 09:15:00 10:18:33 TRAVIS hassan [facility] 2022-12-08 2022-12-08 Leann Sloan [facility] 1.2.840. 114 [id number] [facility] 09:15:00 10:18:33 Visit Travis Rubi 350.1.13.10 ity [facility] [place] [id number] Sc dical NAL [address] [facility] 2022-12-07 2022-12-07 Outpatient FOG_Burke_R AOSM AOSM [id number] [id number] [place] 00:00:00 00:00:00 Floyd [id number] [facility] 2022-12-07 2022-12-07 Outpatient FOG_Burke_R AOSM AOSM 655 [id number] [place] 00:00:00 00:00:00 Floyd [id number] [facility] 2022-11-26 2022-11-26 Outpatient LUCY ABRAHAM [id number] Lucy 08:00:00 08:00:00 MILINDA Seybol d 2022-11-23 2022-11-23 Ancillary Leann Shabazz Omar [facility] 1.2.840. 114 [id number] [facility] 08:15:00 09:15:00 Visit Travis Rubi 350.1.13.10 ity [facility] [place] [phone] Sc dical NAL [address] [facility] 2022-11-03 2022-11-03 Outpatient R RUBI [facility] [id number] Univers 17:00:00 17:00:00 TRAVIS hassan [facility] 2022-10-20 2022-10-20 Ancillary Leann Shabazz [facility] 1.2.840. 114 [id number] Univers 17:00:00 18:00:31 Visit Travis Rubi 350.1.13.[address] [facility] [place] [id number] Sc dical NAL [address] [facility] 2022-10-05 2022-10-05 Ancillary Leann Estrada [facility] 1.2.840. 114 [id number] Univers 17:00:00 18:00:34 Visit Travis Rubi 350.1.13.[address] [facility] [facility] 4[place] [phone] Sc dical NAL [address] [facility] 2022-10-05 2022-10-05 Outpatient LAB90 LUCY AYALA [id number] Lucy 16:15:00 16:15:00 Seybol sendy 2022-10-05 2022-10-05 Outpatient LUCY DICKINSON [id number] Lucy 15:30:00 15:30:00 VICTORIANO kaba 2022-09-30 2022-09-30 Outpatient R GREYSON [facility] [id number] Univers 17:00:00 17:00:00 TRAVISDEVEN hassan [facility] 2022-09-15 2022-09-15 Ancillary Leann Estrada [facility] 1.2.840. 114 [id number] Univers 17:00:00 18:02:40 Visit Travis Rubi 350.1.13.[address] [facility] 4[place] [id number] Sc dical NAL [address] [facility] 2022-09-08 2022-09-08 Ancillary Leann Estrada [facility] 1.2.840. 114 [id number] Univers 17:00:00 18:00:00 Visit Travis Rubi [place] 350.1.13.10 ity of [place] [id number] Sc dical NAL [address] [facility] 2022-08-31 2022-08-31 Ancillary EstradaChris olsonanamaria Omar [facility] 1.2.840. 114 [id number] Univers 17:00:00 17:59:33 Visit Travis Rubi Lisa BURKS 350.1.13.[address] [facility] [facility] 4.2.[place] [id number] Sc dical NAL [address] [facility] 2022-08-31 2022-08-31 [facility] [id number] Univers 17:00:00 17:59:33 TRAVIS hassan [facility] 2022-08-10 2022-08-10 Ancillary NatalieChrisanamaria Omar [facility] 1.2.840. 114 [id number] Univers 17:00:00 18:00:00 Visit Greyson Travis Lisa BURKS 350.1.13.[address] 4.[place] [id number] Sc dical NAL [address] [facility] 2022-08-10 2022-08-10 Orders Doctor JOSEFINA 1.2.840.114 [id number] Univers 00:00:00 00:00:00 Only Unassigned, JUAN 350.1.13.10 ity of [place] [facility] 4.2.7.2.686 Arthur as [id number] [address] 2022-08-03 2022-08-03 Outpatient R GREYSON [facility] [id number] Univers 17:00:00 17:55:25 TRAVIS hassan [facility] 2022-08-03 2022-08-03 Ancillary NatalieChrisanamaria [facility] 1.2.840. 114 [id number] Univers 17:00:00 17:55:25 Visit Travis Rubi Lisa BURKS 350.1.13.[address] [facility] 4.[place] [id number] Sc dical NAL [address] [facility] 2022-08-032022-08-03 Orders Doctor JOSEFINA 1.2.840.114 [id number] Univers 00:00:00 00:00:00 Only Unassigned, JUAN 350.1.13.10 ity of [place] [facility] 4.2.7.2.686 Arthur as [id number] [place] [address] [place] 2022-07-13 2022-07-13 Orders Doctor JOSEFINA 1.2.840.114 [id number] Univers 00:00:00 00:00:00 Only Unassigned, JUAN 350.1.13.10 ity of [place] [facility] 4.2.7.2.686 Arthur as [phone] [place] [address] [place] 2021-12-30 2021-12-30 Outpatient MHIE MHIE [id number] [facility] 07:00:00 07:00:00 02 l [place] 2021-10-14 2021-10-14 Telemedici [facility], 1.2.840.1 [id number] Methodi 11:30:00 11:45:49 [place]o [address]07.1.[address] 3.430.2.7 Hospit a .3.724203 l .8 2021-07-18 2021-07-18 Travel 1.2.840.1 1.2.096.129 [id number] [id number] Methodi 00:00:00 00:00:[address] 3.430.2.7 0.2.7.3.698 spita .3.155577 084.8 l .8 2021-01-30 2021-01-30 [facility] [id number] [facility] 08:51:00 08:51:[address] [place] [address] 2020-12-13 2020-12-13 Hospital [facility], 1.2.840.1 [id number] Methodi 11:03:03 23:59:00 Encounter Terry 66586.1.[address] 3.430.2.7 Hospit a .3.768925 l .8 2020-12-13 2020-12-13 Travel 1.2.840.1 1.2.836.638 [id number] [id number] Methodi 00:00:00 00:00:[address] 3.430.2.7 0.2.7.3.698 Ho spita .3.259028 084.8 l .8 2020-12-05 2020-12-06 Between nullFlavo [facility] [id number] Memoria 13:54:11 13:54:11 Visit r Primary 16 [facility] 2020-11-28 2020-11-28 Travel 1.2.840.1 1.2.599.658 2475 [id number] Methodi 00:00:00 00:00:[address] 3.430.2.7 0.2.7.3.698 Ho spita .3.840687 084.8 l .8 2020-11-25 2020-11-27 Phone nullFlavo MG [id number] Memoria 19:19:32 04:59:59 Message r Primary 11 [facility] 2020-11-20 2020-11-22 Phone nullFlavo [facility] [id number] Memoria 16:21:27 04:59:59 Message r Primary 10 [facility] 2020-11-19 2020-11-21 Phone nullFlavo [facility] [id number] Memoria 14:20:38 04:59:59 Message r Primary 09 [facility] 2020-09-13 2020-09-13 Office Katelin, 1.2.840.1 [id number] Methodi 09:43:30 10:31:45 Visit Terry 09213.1.[address] 3.430.2.7 Hospit a .3.825798 l .8 2020-09-13 2020-09-13 Travel 1.2.840.1 1.2.196.649 2486 [id number] Methodi 00:00:00 00:00:[address] 3.430.2.7 0.2.7.3.698 spita .3.695285 084.8 l .8 2020-07-17 2020-07-17 Refshefali Hart, 1.2.840.1 [id number] 3330 Methodi 00:00:00 00:00:00 Chelsea Sanon 50315.1.[address] 3.430.2.7 Hospit a .3.294177 l .8 2020-07-12 2020-07-12 Refshefali Hart, 1.2.840.1 [id number] 0695 Methodi 00:00:00 00:00:00 Chelsea Sanon 71939.1.[address] 3.430.2.7 Hospit a .3.380423 l .8 2020-06-18 2020-06-18 Outpatient MHIE IE [id number] [facility] 10:00:00 10:00:00 01 l [place] 2020-06-04 2020-06-04 [facility] 1.2.840.114 [id number] 18:30:00 23:59:00 Daquan Burks 350.1.13.10 [place] 4.2.7.2.686 [place] [id number] 806 2020-06-04 2020-06-04 Outpatient R [facility] [id number] Univers 18:30:00 18:30:00 ity of [facility] 2020-06-04 2020-06-04 Orders Doctor ROCHA 1.2.840.114 [id number] 00:00:00 00:00:00 Only Unassigned, JUAN 350.1.13.10 [place] [facility] 4.2.7.2.686 [id number] 009 2020-05-06 2020-05-06 Emergency [facility] 1.2.685.221 [id number] 13:15:00 16:55:00 Royer Burks 350.1.13.10 [place] 4.2.7.2.686 [place] [id number] 084 2020-03-15 2020-03-15 Office Katelin, 1.2.840.1 [id number] 4206 Methodi 10:01:48 11:16:43 Visit Terry 76239.1.[address] 3.430.2.7 Hospit a .3.171574 l .8 2020-03-15 2020-03-15 Travel 1.2.840.1 1.2.516.221 2480 762181 Methodi 00:00:00 00:00:[address] 3.430.2.7 0.2.7.3.698 Ho spita .3.360810 084.8 l .8 2020-03-13 2020-03-13 [facility], 1.2.840.1 [id number] [id number] Methodi 06:32:06 23:59:00 Encounter Refugio 14934.1.[address] 3.430.2.7 Hospit a .3.144634 l .8 2020-03-12 2020-03-12 Travel 1.2.840.1 1.2.803.089 6319 627218 Methodi 00:00:00 00:00:[address] 3.430.2.7 0.2.7.3.698 Ho spita .3.760763 084.8 l .8 2020-03-08 2020-03-08 Travel 1.2.840.1 1.2.474.439 7198 971453 Methodi 00:00:00 00:00:[address] 3.430.2.7 0.2.7.3.698 Ho spita .3.366275 084.8 l .8 2020-03-08 2020-03-08 Orders Serban, 1.2.840.1 [id number] 1533 Methodi 00:00:00 00:00:00 Only Aixa 72025.1.[address] 3.430.2.7 Hospit a .3.686697 l .8 2020-03-06 2020-03-06 [facility], 1.2.840.1 [id number] 86669 Methodi 14:13:03 23:59:00 Encounter Terry 89152.1.[address] 3.430.2.7 Hospit a .3.531252 l .8 2020-03-06 2020-03-06 Travel 1.2.840.1 1.2.498.201 7158 030551 Methodi 00:00:00 00:00:[address] 3.430.2.7 0.2.7.3.698 Ho spita .3.390360 084.8 l .8 2020-03-04 2020-03-04 Travel 1.2.840.1 1.2.590.546 6605 [id number] Methodi 00:00:00 00:00:[address] 3.430.2.7 0.2.7.3.698 Ho spita .3.233425 084.8 l .8 2020-03-01 2020-03-01 Office Katelin, 1.2.840.1 [id number] 3242 Methodi 13:53:06 14:57:23 Visit Terry 64910.1.[address] 3.430.2.7 Hospit a .3.828187 l .8 2020-02-28 2020-03-[address] [facility] [id number] Memoria 14:46:02 04:59:59 Message r Primary 05 l [facility] 2020-03-01 2020-03-01 Travel 1.2.840.1 1.2.631.849 [id number] Methodi 00:00:00 00:00:[address] 3.430.2.7 0.2.7.3.698 Ho spita .3.567156 084.8 l .8 2020-02-21 2020-02-21 Abstract Geovanny, 1.2.840.1 [id number] 2100 [id number] Methodi 00:00:00 00:00:[address] 3.430.2.7 Hospit a .3.435609 l .8 2020-02-21 2020-02-21 Travel 1.2.840.1 1.2.034.409 3280 222978 Methodi 00:00:00 00:00:[address] 3.430.2.7 0.2.7.3.698 [facility] .3.299038 084.8 l .8 2019-12-19 2019-12-19 Outpatient CHAYA HAYNES MDA MDA [id number] 14:37:17 15:04:22 CALEB harry 2019-12-15 2019-12-15 Outpatient CHAYA BOLDEN MDA MDA [id number] 07:27:02 07:27:02 SHERRIE harry 2019-12-15 2019-12-15 Outpatient CHAYA BOLDEN MDA MDA [id number] 07:17:44 07:21:59 SHERRIE harry 2019-12-13 2019-12-15 Phone nullFlavo [facility] [id number] Memoria 14:04:58 04:59:59 Message r Primary 03 l Care [facility] 2019-12-08 2019-12-10 Phone nullFlavo [facility] [id number] Memoria 13:12:35 04:59:59 Message r Primary 02 l Care [facility] 2019-12-08 2019-12-10 Phone nullFlavo [facility] [id number] Memoria 13:10:28 04:59:59 Message r Primary 01 l Care [facility] 2019-11-17 2019-11-18 Between nullFlavo [facility] [id number] Memoria 12:33:41 12:33:41 Visit r Primary 01 l Care [facility] 2019-11-09 2019-11-11 Phone nullFlavo [facility] [id number] Memoria 21:12:12 04:59:59 Message r Primary 00 l Care [facility] 2019-06-15 2019-06-16 Outpatient nullFlavo [facility] [id number] Memoria 14:45:00 05:59:59 r Primary 00 l Care [facility] 2019-02-16 2019-02-16 Hospital Radiology [facility] 1.2.840.114 [id number] 16:45:00 23:59:00 Encounter [place] 350.1.13.10 [place] 4.2.7.2.686 [place] [id number] Results Test Description Test Time Test Comments Results Result Comments Source TROPONIN I 2023-03-11 02:57:27 Test Item Value Reference Range Interpretation Comme nts TROPONIN I (test code = 8424345699) 0.002 ng/mL <=0.034 MARSHA (test code = MARSHA) Reference (Normal) Range (defined by the 99th percentile reference limit): <= 0.034 ng/mL Note: Cardiac troponin begins to rise 3-4 hours after the onset of ischemia. Repeat in 4-6 hours if the sample was drawn within 3-4 hours of the onset of the symptom and found normal. Diagnosis of myocardial injury is made with acute changes in cTn concentrations with at least one serial sample above the 99th percentile upper reference limit (URL), taken together with the patient's clinical presentation. Biotin has been reported to cause a negative bias, interpret results relative to patient's use of biotin. Lab Interpretation (test code = Normal 60767-0) [facility] Test Item Value Reference Range Interpretation Comments MAGNESIUM (test code = 2422756615) 1.8 mg/dL 1.7-2.4 Lab Interpretation (test code = Normal 74122-0) [facility] (09296)2023-03-11 02:08:17 Test Item Value Reference Range Interpretation Comments NA (test code = 137 mmol/L 135-145 9284771915) K (test code = 3.4 mmol/L 3.5-5.0 L 1295230741) CL (test code = 101 mmol/L 98-108 5586864790) CO2 TOTAL (test code = 27 mmol/L 23-31 6649687025) AGAP (test code = 9 2-16 8375087643) BUN (test code = 16 mg/dL 7-23 8570801985) GLUCOSE (test code = 119 mg/dL 70-110 H 9265954949) CREATININE (test code = 0.63 mg/dL 0.50-1.04 8944470697) TOTAL BILI (test code = 0.7 mg/dL 0.1-1.3 1905184873) CALCIUM (test code = 9.5 mg/dL 8.6-10.6 8350470311) T PROTEIN (test code = 7.6 g/dL 6.3-8.2 2061731603) ALBUMIN (test code = 4.6 g/dL 3.5-5.0 0432588763) ALK PHOS (test code = 53 U/L 34-122 5554501304) ALTv (test code = 45 U/L 5-35 H 1742-6) AST(SGOT) (test code = 42 U/L 13-40 H 7348104382) eGFR (test code = 102.2 mL/min/1.73m2 5897486340) MARSHA (test code = MARSHA) Association of Glomerular Filtration Rate (GFR) and Staging of Kidney Disease* + --+ --+ ------+| GFR (mL/min/1.73 m2) ?| With Kidney Damage ?| ?Without Kidney Damage+ --------+ --------+ +| ?>90 ?| ?Stage one ?| ? Normal ?+ ---+ ---+ -------+| ?60-89 ?| ?Stage two ?| ? Decreased GFR ? + --+ --+ ------+| ?30-59 ?| ?Stage three ?| ? Stage three ? + --+ --+ ------+| ?15-29 ?| ?Stage four ? | ? Stage four ?+ ---+ ---+ -------+| ?<15 (or dialysis) ? ?| ?Stage five ? | ? Stage five ?+ ---+ ---+ -------+ *Each stage assumes the associated GFR level has been in effect for at least three months. ?Stages 1 to 5, with or without kidney disease, indicate chronic kidney disease. Notes: Determination of stages one and two (with eGFR >59mL/min/1.73 m2) requires estimation of kidney damage for at least three months as defined by structural or functional abnormalities of the kidney, manifested by either:Pathological abnormalities or Markers of kidney damage (including abnormalities in the composition of the blood or urine or abnormalities in imaging tests). Lab Interpretation Abnormal (test code = 23974-3) [facility] Test Item Value Reference Range Interpretation Comments LIPASE (test code = 0174904242) 101 U/L 0-220 Lab Interpretation (test code = Normal 45993-9) [facility] WITH [id number] 01:49:15 Test Item Value Reference Range Interpretation Comments WBC (test code = 9.19 See_Comment [Automated 6690-2) message] The sy stem which generated this result transmitted reference range : 4.30 - 11.10 10*3/?L. The reference range was not used to interpret this result as normal/abnormal . RBC (test code = 4.19 See_Comment [Automated 789-8) message] The sy stem which generated this result transmitted reference range : 3.93 - 5.25 10*6/?L. The reference range was not used to interpret this result as normal/abnormal . HGB (test code = 12.5 g/dL 11.6-15.0 718-7) HCT (test code = 35.6 % 35.7-45.2 L 4544-3) MCV (test code = 85.0 fL 80.6-95.5 787-2) MCH (test code = 29.8 pg 25.9-32.8 785-6) MCHC (test code = 35.1 g/dL 31.6-35.1 786-4) RDW-SD (test code = 41.5 fL 39.0-49.9 95070-3) RDW-CV (test code = 13.5 % 12.0-15.5 788-0) PLT (test code = 212 See_Comment [Automated 777-3) message] The sy stem which generated this result transmitted reference range : 166 - 358 10*3/ ?L. The reference r gordon was not used to interpret this result as normal/abnormal . MPV (test code = 8.7 fL 9.5-12.9 L 66572-5) NRBC/100 WBC (test 0.0 See_Comment [Automat ed code = 8184146043) message] The system which generated this result transmitted reference range : 0.0 - 10.0 /100 WBCs. The refer ence range was not u sed to interpret th is result as normal/abnormal . NRBC x10^3 (test code See_Comment [Auto mated = 8957698389) message] The s ystem which generated this result transmitted reference range : 10*3/?L. The reference range was not used to interpret this result as normal/abnormal . GRAN MAT (NEUT) % 90.1 % (test code = 770-8) IMM GRAN % (test code 0.20 % = 0914492065) LYMPH % (test code = 4.9 % 736-9) MONO % (test code = 4.2 % 5905-5) EOS % (test code = 0.3 % 713-8) BASO % (test code = 0.3 % 706-2) GRAN MAT x10^3(ANC) 8.27 10*3/uL 1.88-7.09 H (test code = 7635201862) IMM GRAN x10^3 (test 0.00-0.06 code = 0363583200) LYMPH x10^3 (test code 0.45 10*3/uL 1.32-3.29 L = 731-0) MONO x10^3 (test code 0.39 10*3/uL 0.33-0.92 = 742-7) EOS x10^3 (test code = 0.03 10*3/uL 0.03-0.39 711-2) BASO x10^3 (test code 0.03 10*3/uL 0.01-0.07 = 704-7) Lab Interpretation Abnormal (test code = 65690-2) [facility]00 Test Item Value Reference Range Interpretation Comments SURG (test code = SURG) RUN DATE: 02/11/21 [facility] PAGE 1 RUN TIME: 1353 Specimen Inquiry RUN USER: INTERFACE PATIENT: LEONARD DÍAZ LOC: ELVA U #: [id number] AGE/SX: 45/F ROOM: RE01/30/21[facility] DR: Brittny Luo : 79 BED: DIS: STATUS: [facility] TLOC: SPEC #: [id number] RECD: 01/31/21 STATUS: [facility] REQ #: [id number] RODRIGUEZ: 01/31/21-[address]: Brittny Luo MD ENTERED: 01/31/21 SP TYPE: SURG OTHR DR: No Primary or Family PhysicianORDERED: SURG PATH LVL 5 COPIES TO: No Primary or Family Physician Brittny Luo MD [address] [place] [address] HISTOLOGY: TISSUE ID BLK PCS DANA LEV PROCEDURE DISPOSITION ____ ___ ___ ___ SOFT TISSUES, N A 1 PROCEDURES: SURG PATH LVL 5 (01/31/21) TISSUES: A. SOFT TISSUES, NOS - CUL DE SAC WALL ENDOMETRIOSIS CPT CODES CPT CODE(S): 64761 , , , , , , FINAL DIAGNOSIS "Cul-de-sac wall endometriosis," excision: SEGMENTS OF SOFT TISSUE, NEGATIVE FOR ENDOMETRIOSIS GROSS DESCRIPTION Cul-de-sac wall endometriosis. Received in formalin is an irregular fragment of middleton-brown soft to rubbery tissue, 1.1 x 0.6 x 0.2 cm. The specimen is serially sectioned and the cut surface is middleton-brown and solid. The entire specimen is submitted as A. /ba/rupali Grossing performed at [facility] Pathology, [address] [place] [address], [address], [place] [address]. Muleser: Jose Carlos Siddiqi M.D. CONTINUED ON NEXT PAGE RUN DATE: 02/11/21 [facility] PAGE 2 RUN TIME: 1353 Specimen Inquiry RUN USER: INTERFACE SPEC #: [facility]:[id number] PATIENT: LEONARD DÍAZ #[id number] (Continued) MICROSCOPIC DESCRIPTION Cul-de-sac wall endometriosis. Sections demonstrate segments of unremarkable soft tissue consisting predominantly of fibroadipose tissue. Deeper sections demonstrate similar findings. Signed SIGNATURE ON FILE Ahmet Ray 02/11/21 1353 END OF REPORT COMPREHENSIVE METABOLIC [id number] 12:17:00 Test Item Value Reference Range Interpretation [...] (test code = ALKP) COVID 19 INHOUSE [id number] 17:41:00 Test Item Value Reference Range Interpretation Comments COVID 19 INHOUSE AG NEGATIVE Negative Per manu facturer, (test code = negative result s should [id number]) be treated aspr esumptive and, if inconsi [...] symptoms co nsistent with COVID-19. CBC W/AUTO [id number] 17:07:00 Test Item Value Reference Range Interpretation [...] code NO DIFF/SCN CRITERIA = MDIFF) URINALYSIS [id number] 17:05:00 Test Item Value Reference Range Interpretation [...] Specimen Type: Clean CatchUS Abdominal with Liver [id number] 20:52:00EXAM: US ABDOMINAL WITH LIVER ELASTOGRAPHY CLINICAL [...] F0, no fibrosis (see reference ranges for [employer] E9 with C1-6 Mhz probe below).Please [...] hepatic lobe likely reflects focal fatty infiltration. [facility]-[id number] Dictated and approved by presidential support specialist/fellow: Mauricio Arita M.D. I, Cornelius Langford MD, personally reviewed the images and resident's/fellow's findings and agree with the final report.[facility], Radiology Results Incoming - 12/13/2020 3:55 PM [...] kPaReliability:The IQR was 0.15 m/s, resulting in anIQR/median ratio of 15%. (A value of < 30% indicates a reliable dataset).GALLBLADDER: Status post cholecystectomy.CBD: The common bile duct measures 0.5-0.6 cm, within normal limits. MPV: Doppler evaluation of the portal vein demonstrates normal hepatopetal flow. The main portal vein measures 1.0 cm in diameter, within normal limits.PANCREAS: The visualized portions of the pancreas are within naveed l limits.SPLEEN: The spleen is homogeneous and not [...] left hepatic lobe likely reflects focal fatty infiltration.[facility]- [id number] and approved by presidential support specialist/fellow: Mauricio Arita M.D.I, Cornelius Langford MD, personally reviewed the images and resident's/fellow's findings and agree with the final report.[facility] Centerpre[facility] metabolic [id number] 10:33:00 Test Item Value Reference Range Interpretation Comments Glucose (test code = 88 mg/dL 65-99 2345-7) BUN (test code = 10 mg/dL 7-25 3094-0) Creatinine (test code 0.67 mg/dL 0.50-1.10 = 2160-0) EGFR Non-Afr. See_Comment [Automated Burkinan (test code = messag e] The 2775) system which generated this result transmit perla reference range : > OR = 60 mL/min/1.73m2. The reference range was not used to interpret this result as normal/abnormal . EGFR See_Comment [Auto mated (test code = 00342-5) [employer] e] The system which generated this result [...] . Sodium (test code = 142 mmol/L 689-000 6845-2) Potassium (test code 3.8 mmol/L 3.5-5.3 = 2823-3) Chloride (test code = 104 mmol/L 98-110 5-0) CO2 (test code = 33 mmol/L 20-32 H 2028-02) Calcium (test code = 9.6 mg/dL 8.6-10.2 92596-0) Protein (test code = 6.8 g/dL 6.1-8.1 2885-2) Albumin, S (test code 4.3 g/dL 3.6-5.1 = 1751-7) Globulin, total (test See_Comment [Auto mated code = 86701-7) message] The system which generated this result [...] 6768-6) AST (test code = 19 U/L 04-19 192-8) ALT (test code = 22 U/L 12-17-6) RAC (test code = RAC) Lab Interpretation Abnormal (test code = 16918-1) [facility] with platelet and [id number] 10:33:00 Test Item Value Reference Range Interpretation Comments WBC (test code = See_Comment [Automated message] 0290-2) The system ic h generated this result transmitted ref erence range: 3.8 - 10 .8 Thousand/uL. Th e reference range was not used to int erpret this result as normal/abnormal . RBC (test code = See_Comment [Automated message] 789-8) The system [facility] h generated this result transmitted ref [...] ated message] code = 777-3) The system [facility] generated this result transmitted ref erence range: [...] = 706-2) RAC (test code = RAC) [facility] Abdomen W Wo [id number] 13:17:31EXAMINATION: MRI ABDOMEN W WO CONTRAST HISTORY: [...] liver without suspicious lesions.3. Status post cholecystectomy. [facility]- [id number] Interface, Radiology Results 03/13/2020 8:20 AM CDT [...] the liver without suspicious lesions.3. Status post cholecystectomy.[facility]-[id number] HospitalCelia panel reflex to titer 2020-03-04 22:08:00 Test Item Value Reference Range Interpretation Comments Gliadin IgA (test code = See_Comment [A utomated message] 77558-7) The system [employer] generated this result transmitted ref erence range: 0 - 19 u nits. The reference r gordon was not used to interpret this result as normal/abnor mal. Tissue transglutaminase Ab, <2 0-3 IgA (test code = 83357-7) MARSHA (test code = MARSHA) [facility] microsome Ab, [id number] 18:08:00 Test Item Value Reference Range Interpretation Comments Liver-kidney microsome See_Comment [Aut omated message] The Ab, IgG (test code = system which generated 36635-2) this result tra nsmitted reference range : 0.0 - 20.0 Units. The reference range was not u sed to interpret this result as normal/abnormal . MARSHA (test code = MARSHA) [facility]-smooth muscle [id number] 01:07:00 Test Item Value Reference Range Interpretation Comments F-actin (smooth See_Comment [Automated message] The muscle) Ab, IgG (test system which generated this code = 10910-5) result trans mitted reference range : 0 - 19 Units. The refe rence range was not used to interpret this result as normal/abnormal . MARSHA (test code = MARSHA) [facility] SomersetCeruloplasmin [id number] 00:08:00 Test Item Value Reference Range Interpretation Comments Ceruloplasmin (test code = 2064-4) 32.4 mg/dL 19.0-39.0 MARSHA (test code = MARSHA) [facility] SomersetAlpha-1 antitrypsin [id number] 23:08:00 Test Item Value Reference Range Interpretation Comments Alpha-1 antitrypsin (test code = 162 mg/dL 700-799 3609-9) MARSHA (test code = MARSHA) [facility] HospitalImmunoglobulin G, A, [id number] 15:10:00 Test Item Value Reference Range Interpretation Comments IgG (test code = 2465-3) 1035 mg/dL 586-1602 IgA (test code = 2458-8) 105 mg/dL 87-352 IgM (test code = 2472-9) 104 mg/dL 26-217 MARSHA (test code = MARSHA) [facility] HospitalFerritin [id number] 10:08:00 Test Item Value Reference Range Interpretation Comments Ferritin level (test code = 2276-4) 218 ng/mL 15-150 H MARSHA (test code = MARSHA) Lab Interpretation (test code = Abnormal 81619-7) [facility] HospitalProthrombin time with [id number] 10:08:00 Test Item Value Reference Range Interpretation Comments INR (test code = 6301-6) 0.8-1.2 Prothrombin time (test See_Comment [Aut omated message] The code = 5902-2) system which generated this result tra nsmitted reference range : 9.1 - 12.0 sec. The r eference range was not u sed to interpret this result as normal/abnormal . MARSHA (test code = MARSHA) [facility] HospitalHepatic function [id number] 08:07:00 Test Item Value Reference Range Interpretation Comments Protein (test code = 7.2 g/dL 6.0-8.5 2885-2) Albumin, S (test code 4.8 g/dL 3.8-4.8 = 1751-7) Total bilirubin (test 0.3 mg/dL 0.0-1.2 code = 1974-2) Bilirubin direct (test 0.08 mg/dL 0.00-0.40 code = 1967-7) Alkaline phosphatase See_Comment [Autom ated message] (test code = 6768-6) The sys tem which generated this result transmitted ref erence range: 39 - 117 IU/L. The reference r gordon was not used to interpret this result as normal/abnor mal. AST (test code = See_Comment [Automated message] 1920-01) The system [employer] generated this result transmitted ref erence range: 0 - 40 I U/L. The reference r gordon was not used to interpret this result as normal/abnor mal. ALT (test code = See_Comment [Automated message] 1741-6) The system [employer] generated this result transmitted ref erence range: 0 - 32 I U/L. The reference r gordon was not used to interpret this result as normal/abnor mal. MARSHA (test code = MARSHA) [facility]
[2023-03-30] MEDS ORDERED: METOCLOPRAMIDE 10 MG/2mL INJ ONE (17:14)
[2023-03-30] MEDS ORDERED: DIPHENHYDRAMINE 50 MG/ML VIAL ONE (17:14)
[2023-03-30] MEDS ORDERED: dexAMETHasone 10 MG/ML VIAL ONE (17:14)
[2023-03-30] MEDS ORDERED: NA CHLORIDE 0.9% 1,000 ML ONE (17:14)
[2023-03-30 17:20] LABS: Absolute Lymphocytes (CBC) 1.8 K/uL (0.7-4.9); Hematocrit 33.4 % (36.0-45.0); Lymphocytes % 34.2 % (15.3-44.8); MCV 84.4 fL (80-100); MPV 6.8 fL (7.6-11.3); Platelets 257 thou/uL (152-406); RBC Red Blood Cell Count 3.96 M/uL (3.86-4.86)
[2023-03-30 17:32] LABS: Potassium 3.4 mEq/L (3.5-5.1)
--- NOTE | 2023-03-30 18:35 | RAD REPORT ---
EXAM DESCRIPTION: CT - Head Brain Wo Cont - 03/30/2023 5:41 pm CLINICAL HISTORY: HEADACHE COMPARISON: No comparisons TECHNIQUE: Noncontrast head CT images were obtained without IV contrast. Multiplanar reformats were generated and reviewed. All CT scans are performed using dose optimization technique as appropriate and may include automated exposure control or mA/KV adjustment according to patient size. FINDINGS: No intracranial hemorrhage, mass, or edema. Midline structures are unremarkable. Normal ventricular caliber for age. Garcia-white matter differentiation is preserved, without evidence of acute infarct. No abnormal extra- axial fluid collections. Mastoid air cells and visualized portions of the paranasal sinuses are clear. No acute bony findings. IMPRESSION: No evidence of an acute intracranial process.
[2023-03-30] MEDS ORDERED: KETOROLAC 30 MG/ML INJ ONE (18:56)
--- NOTE | 2023-03-30 19:02 | ER ---
Nurse's Notes [facility] Name: Radha Mcleod Age: 48 yrs Sex: Female : 1975 Arrival Date: 03/30/2023 Time: 16:33 Bed 13 Private MD: Diagnosis: Headache Presentation: 03/30 16:54 Chief complaint: EMS states: pt had an EGD yesterday and woke up from recovery with a kc6 headache. pain controlled yesterday but had progressively gotten worse today 03/30. 50mcg of fentanyl given en route. Coronavirus screen: At this time, the client does not indicate any symptoms associated with coronavirus-19. Ebola Screen: No symptoms or risks identified at this time. Initial Sepsis Screen: Does the patient meet any 2 criteria? No. Patient's initial sepsis screen is negative. Does the patient have a suspected source of infection? No. Patient's initial sepsis screen is negative. Risk Assessment: Do you want to hurt yourself or someone else? Patient reports no desire to harm self or others. Onset of symptoms was March 30, 2023. 16:54 Method Of Arrival: EMS: [place] [address] 16:54 Acuity: RICHARD 3 kc6 Triage Assessment: 16:56 Headache History: The patient has had previous headaches and this one is similar to kc6 previous episodes. General: Appears in no apparent distress. uncomfortable, Behavior is cooperative, appropriate for age, crying. Pain: Complains of pain in head Pain does not radiate. Pain currently is 10 out of 10 on a pain scale. Quality of pain is described as dull, throbbing, Pain began 1 day ago. Is continuous, Also complains of no other associated symptoms. EENT: No signs and/or symptoms were reported regarding the EENT system. Neuro: Level of Consciousness is awake, alert, obeys commands, Oriented to person, place, time, situation, Appropriate for age. Cardiovascular: Capillary refill < 3 seconds. Respiratory: Airway is patent Trachea midline Respiratory effort is even, unlabored, Respiratory pattern is regular, symmetrical. GI: No signs and/or symptoms were reported involving the gastrointestinal system. : No signs and/or symptoms were reported regarding the genitourinary system. Derm: No signs and/or symptoms reported regarding the dermatologic system. Skin is intact, is healthy with good turgor, Skin is pink, warm \T\ dry. Musculoskeletal: No signs and/or symptoms reported regarding the musculoskeletal system. Circulation, motion, and sensation intact. Capillary refill < 3 seconds, Range of motion: intact in all extremities. Historical: - Allergies: 16:56 No Known Allergies; kc6 - PMHx: 16:56 Endometriosis; Rheumatoid Arthritis; hashimotos (Rheumatoid Arthritis); kc6 - PSHx: 16:56 Cholecystectomy; hysterectomy; Tonsillectomy; kc6 - Immunization history:: Adult Immunizations up to date. - Social history:: Smoking status: Patient denies any tobacco usage or history of. Screenin:57 [facility] ED Fall Risk Assessment (Adult) History of falling in the last 3 months, 6 including since admission No falls in past 3 months (0 pts) Confusion or Disorientation No (0 pts) Intoxicated or Sedated No (0 pts) Impaired Gait No (0 pts) Mobility Assist Device Used No (0 pt) Altered Elimination No (0 pt) Score/Fall Risk Level 0 - 2 = Low Risk. Abuse screen: Denies threats or abuse. Denies injuries from another. Nutritional screening: No deficits noted. Tuberculosis screening: No symptoms or risk factors identified. Assessment: 16:58 Reassessment: please see triage assessment. [facility] 17:58 Reassessment: Patient appears in no apparent distress at this time. No changes from [facility] previously documented assessment. Patient and/or family updated on plan of care and expected duration. Pain level reassessed. Patient is alert, oriented x 3, equal unlabored respirations, skin warm/dry/pink. Patient states feeling better. Patient states symptoms have improved. 19:10 Reassessment: Patient appears in no apparent distress at this time. Patient and/or jw7 family updated on plan of care and expected duration. Pain level reassessed. Patient is alert, oriented x 3, equal unlabored respirations, skin warm/dry/pink. Patient states feeling better. Patient states symptoms have improved. Pain: Denies pain. Vital Signs: 16:54 BP 123 / 80; Pulse 93; Resp 19 S; Temp 98.7(O); Pulse Ox 98% on R/A; Weight 63.5 kg kc6 (R); Height 5 ft. 4 in. (R); Pain 10/10; 18:31 BP 109 / 73; Pulse 79; Resp 16 S; Pulse Ox 100% on R/A; kc6 19:10 BP 106 / 76; Pulse 78; Resp 16 S; Pulse Ox 100% on R/A; jw7 16:54 Body Mass Index 24.03 (63.50 kg, 162.56 cm) kc6 16:54 Pain Scale: Adult kc6 [place] Coma Score: 21:11 Eye Response: spontaneous(4). Motor Response: obeys commands(6). Verbal Response: kb oriented(5). Total: 15. ED Course: 16:48 Patient arrived in ED. kc6 16:51 Marva Gonzalez FNP-C is [facility]. kb 16:51 Scotty Verduzco MD is Attending Physician. kb 16:54 Josy Pearson, ART is Primary Nurse. kc6 16:56 Triage completed. kc6 16:56 Arm band placed on. kc6 16:57 Maintain EMS IV. Dressing intact. Good blood return noted. Site clean \T\ dry. Gauge \T\ jordan 6 site: 20G RAC. 16:58 Patient has correct armband on for positive identification. Bed in low position. Call kc6 light in reach. Side rails up X2. Client placed on continuous cardiac and pulse oximetry monitoring. NIBP monitoring applied. 17:07 Radiology exam delayed due to per RN. nj 17:43 CT Head Brain wo Cont In Process Unspecified. EDMS 19:16 No provider procedures requiring assistance completed. IV discontinued, intact, hb bleeding controlled, No redness/swelling at site. Pressure dressing applied. 19:16 No provider procedures requiring assistance completed. IV discontinued, intact, jw7 bleeding controlled, No redness/swelling at site. Pressure dressing applied. 19:17 Provided Education on: discharge instructions. jw7 Administered Medications: 17:16 Drug: NS 0.9% IV 1000 ml IV at 1000 ml once Route: IV; Rate: 1000 ml; Site: right kc6 antecubital; 19:18 Follow up: Response: No adverse reaction; IV Status: Completed infusion; IV Intake: jw7 1000ml 17:16 Drug: metoCLOPramide IVP 10 mg IVP once; over 1 to 2 minutes Route: IVP; Site: right kc6 antecubital; 17:54 Follow up: Response: No adverse reaction [facility] 17:16 Drug: diphenhydrAMINE IVP 12.5 mg IVP once Route: IVP; Site: right antecubital; kc6 17:54 Follow up: Response: No adverse reaction kc6 17:16 Drug: Decadron - Dexamethasone IVP 10 mg IVP once Route: IVP; Site: right antecubital; kc6 17:54 Follow up: Response: No adverse reaction kc6 18:46 Drug: Ketorolac IVP 15 mg IVP once Route: IVP; Site: right antecubital; kc6 19:18 Follow up: Response: No adverse reaction; Marked relief of symptoms jw7 Medication: 19:17 VIS not applicable for this client. jw7 Intake: 19:18 IV: 1000ml; Total: 1000ml. jw7 Outcome: 19:02 Discharge ordered by MD. colbert 19:16 Discharged to home ambulatory, jw7 19:16 Condition: stable 19:16 Discharge instructions given to patient, Instructed on discharge instructions, follow up and referral plans. Demonstrated understanding of instructions, follow-up care, 19:19 Patient left the ED. jw7 Signatures: Dispatcher [employer] EDMS Marva Gonzalez, PROMOTIONS MANAGER-C PROMOTIONS MANAGER-Ckb Alla Koehler, RN RN Teddy Sanchez Jodi RN RN jw7 Josy Pearson RN RN kc6
--- NOTE | 2023-03-30 19:02 | EDPHYS ---
Physician Documentation [facility] Name: Radha Mcleod Age: 48 yrs Sex: Female : 1975 Arrival Date: 03/30/2023 Time: 16:33 Bed 13 Private MD: ED Physician Scotty Verduzco HPI: 03/30 21:12 This 48 yrs old Female presents to ER via EMS with complaints of Headache. kb 21:12 The patient complains of pain to the top of head and forehead. The patient describes kb the headache as constant. Onset: The symptoms/episode began/occurred yesterday. Associated signs and symptoms: The patient has no apparent associated signs or symptoms. Severity of symptoms: At its worst the pain was moderate, severe, in the emergency department the pain is unchanged. Headache History: The patient has had previous headaches and this one is more severe than previous episodes. The symptoms are alleviated by nothing. the symptoms are aggravated by nothing. The patient has not experienced similar symptoms in the past. The patient has not recently seen a physician. Pt reports headache that started upon waking from anesthesia after endoscopy yesterday. . Historical: - Allergies: 16:56 No Known Allergies; kc6 - PMHx: 16:56 Endometriosis; Rheumatoid Arthritis; hashimotos (Rheumatoid Arthritis); kc6 - PSHx: 16:56 Cholecystectomy; hysterectomy; Tonsillectomy; kc6 - Immunization history:: Adult Immunizations up to date. - Social history:: Smoking status: Patient denies any tobacco usage or history of. ROS: 21:11 Constitutional: Negative for fever, chills, and weight loss, kb 21:11 Neuro: Positive for headache, 21:11 All other systems are negative, Exam: 21:11 Constitutional: This is a well developed, well nourished patient who is awake, alert, kb and in no acute distress. Head/Face: Normocephalic, atraumatic. Eyes: Pupils equal round and reactive to light, extra-ocular motions intact. Lids and lashes normal. Conjunctiva and sclera are non-icteric and not injected. Cornea within normal limits. Periorbital areas with no swelling, redness, or edema. ENT: Moist Mucous membranes Cardiovascular: Regular rate Respiratory: Respirations even and unlabored. No increased work of breathing. Talking in full sentences Abdomen/GI: Soft, non-tender. No distention Skin: Warm, dry with normal turgor. Normal color. MS/ Extremity: Pulses equal, no cyanosis. Neurovascular intact. Full, normal range of motion. Neuro: Awake and alert, GCS 15, oriented to person, place, time, and situation. Moves all extremities. Normal gait. Vital Signs: 16:54 BP 123 / 80; Pulse 93; Resp 19 S; Temp 98.7(O); Pulse Ox 98% on R/A; Weight 63.5 kg kc6 (R); Height 5 ft. 4 in. (R); Pain 10/10; 18:31 BP 109 / 73; Pulse 79; Resp 16 S; Pulse Ox 100% on R/A; kc6 19:10 BP 106 / 76; Pulse 78; Resp 16 S; Pulse Ox 100% on R/A; jw7 16:54 Body Mass Index 24.03 (63.50 kg, 162.56 cm) kc6 16:54 Pain Scale: Adult kc6 Dharmesh Coma Score: 21:11 Eye Response: spontaneous(4). Motor Response: obeys commands(6). Verbal Response: kb oriented(5). Total: 15. MDM: 16:51 Patient medically screened. kb 21:11 Differential diagnosis: cluster headache, migraine, subarachnoid bleed, subdural kb hematoma, tension headache. Data reviewed: vital signs, nurses notes. Historians other than the Patient: EMS: [facility]. Counseling: I had a detailed discussion with the patient and/or guardian regarding the historical points, exam findings, and any diagnostic results supporting the discharge/admit diagnosis, lab results, radiology results, the need for outpatient follow up, a neurologist, to return to the emergency department if symptoms worsen or persist or if there are any questions or concerns that arise at home. Response to treatment: the patient's symptoms have resolved after treatment, the patient's pain is gone. 03/30 16:55 Order name: CBC with Diff; Complete Time: 17:23 kb 03/30 16:55 Order name: Basic Metabolic Panel; Complete Time: 17:33 kb 03/30 16:55 Order name: CT Head Brain wo Cont; Complete Time: 18:40 kb 03/30 16:55 Order name: IV Start; Complete Time: 16:58 kb Administered Medications: 17:16 Drug: NS 0.9% IV 1000 ml IV at 1000 ml once Route: IV; Rate: 1000 ml; Site: right kc6 antecubital; 19:18 Follow up: Response: No adverse reaction; IV Status: Completed infusion; IV Intake: jw7 1000ml 17:16 Drug: metoCLOPramide IVP 10 mg IVP once; over 1 to 2 minutes Route: IVP; Site: right kc6 antecubital; 17:54 Follow up: Response: No adverse reaction 6 17:16 Drug: diphenhydrAMINE IVP 12.5 mg IVP once Route: IVP; Site: right antecubital; kc6 17:54 Follow up: Response: No adverse reaction 6 17:16 Drug: Decadron - Dexamethasone IVP 10 mg IVP once Route: IVP; Site: right antecubital; kc6 17:54 Follow up: Response: No adverse reaction 6 18:46 Drug: Ketorolac IVP 15 mg IVP once Route: IVP; Site: right antecubital; 6 19:18 Follow up: Response: No adverse reaction; Marked relief of symptoms jw7 Disposition Summary: 03/30/23 19:02 Discharge Ordered Notes: Location: Home kb Condition: Stable kb Diagnosis - Headache kb Followup: kb - With: Emergency Department - When: As needed - Reason: Worsening of condition Followup: kb - With: Private Physician - When: 2 - 3 days - Reason: Recheck today's complaints, Continuance of care, Re-evaluation by your physician Discharge Instructions: - Discharge Summary Sheet kb - General Headache Without Cause, [id number] kb Forms: - Medication Reconciliation Form kb - Thank You Letter kb - Antibiotic Education kb - Prescription Opioid Use kb - Patient Portal Instructions kb - Leadership Thank You Letter kb Addendum: 03/31/2023 22:07 Co-signature as Attending Physician, Scotty Verduzco MD I reviewed the patient's care r t provided by the Advanced Practice Provider and agree with the diagnosis and treatment plan. Signatures: Dispatcher [employer] Marva Arias, NADEEM-C FREELANCE INTERPRETER/TRANSLATOR-Josy Yanes, RN RN kc6 Scotty Verduzco MD MD rt Waits, Jodi RN jw7
[2023-03-30 19:42] VITALS: TEMP 98.7
[2023-03-30 19:43] VITALS: O2SAT 100
[2023-03-30 19:44] VITALS: BP 106/76
== END 2023-03-30 19:19 | disposition home or self-care (01) ==
LOC: ER 16:33
DX: R51.9 Headache, unspecified (principal)
CPT/HCPCS: 36415; 70450; 80048; 85025; 96361; 96374; 96375; 99284; J1100; J1200; J2765; J7030